=== PATIENT | female | born 1955 | race African-American/Black ===

== ENCOUNTER 2016-10-25 21:16 | Emergency (ER) | payer MEDICARE, MEDICAID ==
[~2016-10-25] VITALS: Ht 170.2 cm; Wt 55.0 kg
[~2016-10-25 21:16] MED LIST: AMLO10TA80 PO; CALC0.253 PO; CINA90TA PO; DOXA2TAB2 PO; OMEP20CA4 PO; QUET200T PO; RAMI10CA19 PO; SERT100T PO; SEVE800T8 PO; TEMA15CA PO; TRAZ-132 PO; VALS320T2 PO
[2016-10-25] MEDS ORDERED: MORPHINE SULFATE 4 MG/ML CPJ (NOT FOR IM USE) IV STA (23:09)
[2016-10-25] MEDS ORDERED: ONDANSETRON HCL 4MG/2ML VIAL IV STA (23:09)
[2016-10-25] MEDS ORDERED: LIDOCAINE HCL 1% 20ML VIAL (Pyxis) INJ MC ONE (23:15)
[2016-10-25] MEDS ORDERED: BACITRACIN ZINC OINT UDPKT TOP ONE (23:15)
[2016-10-25 23:39] LABS: BASOPHILS % 2.4 % (0.0-2.0); EOSINOPHILS % 5.6 % (0.0-5.0); HEMATOCRIT. 24.4 % (36.0-48.0); HEMOGLOBIN. 8.4 g/dL (12.0-16.0); LYMPHOCYTES % 31.4 % (20.0-50.0); MEAN CORPUSCULAR HEMOGLOBIN 33.7 pg (28.0-32.0); MEAN CORPUSCULAR VOLUME 98.1 fL (81.0-99.0); MEAN PLATELET VOLUME 7.5 fl (7.4-10.4); MONOCYTES % 8.9 % (2.0-8.0); NEUTROPHILS % 51.7 % (40.0-76.0); PLATELET 187 x1000/uL (130-400); RED BLOOD CELL COUNT 2.49 mill/uL (4.2-5.4); RED CELL DISTRIBUTION WIDTH 17.4 % (11.6-14.6)
[2016-10-25 23:46] LABS: CHLORIDE 98 mEq/L (98-107); INR 1.2; PROTHROMBIN TIME 12.9 sec
[2016-10-25 23:56] LABS: CARBON DIOXIDE 30 mEq/L (21-32)
[2016-10-26 04:05] VITALS: BP 125/76
[2017-03-26] MEDS ORDERED: SEVE800T8 PO (07:38)
[2017-03-26] MEDS ORDERED: NEPVIT PO (07:38)
== END 2016-10-26 04:06 | disposition home or self-care (01) ==
LOC: ER 21:25
DX: T82.838A Hemorrhage due to vascular prosthetic devices, implants and grafts, initial encounter (principal); Y84.1 Kidney dialysis as the cause of abnormal reaction of the patient, or of later complication, without mention of misadventure at the time of the procedure; D64.9 Anemia, unspecified; I12.9 Hypertensive chronic kidney disease with stage 1 through stage 4 chronic kidney disease, or unspecified chronic kidney disease; N18.9 Chronic kidney disease, unspecified; G62.9 Polyneuropathy, unspecified; Z90.81 Acquired absence of spleen; F17.200 Nicotine dependence, unspecified, uncomplicated; Z99.2 Dependence on renal dialysis
CPT/HCPCS: 36415; 80053; 85025; 85610; 86850; 86870; 86900; 86901; 93005; 96374; 96375; 99285; J2270; J2405; J3490

== ENCOUNTER 2016-11-07 16:30 | Inpatient (IN) | payer MEDICARE, MEDICAID ==
[~2016-11-07] VITALS: Ht 170.2 cm; Wt 54.0 kg
[2016-11-07] MEDS ORDERED: IPRATROPIUM BROMIDE (0.02%) 0.5MG/2.5ML NEB HHN PRN (19:45)
[2016-11-07] MEDS ORDERED: LACTULOSE 20G/30ML UDC PO PRN (19:45)
[2016-11-07] MEDS ORDERED: HYDROXYZINE 10 MG TABLET PO PRN (19:45)
[2016-11-07] MEDS ORDERED: ONDANSETRON HCL 4MG/2ML VIAL IV PRN (19:45)
[2016-11-07] MEDS ORDERED: CLONIDINE 0.1MG TABLET PO PRN (19:45)
[2016-11-07] MEDS ORDERED: ACETAMINOPHEN 325MG TABLET PO PRN (19:45)
[2016-11-07] MEDS ORDERED: DEXTROSE 50% WATER 50ML SYRINGE IV PRN ×2 (19:45)
[2016-11-07] MEDS ORDERED: ALBUTEROL (0.083%) 2.5MG/3ML NEB HHN PRN (19:45)
[2016-11-07 20:00] VITALS: BP 123/71
[2016-11-07] MEDS ORDERED: HYDROMORPHONE HCL/PF 2MG/ML CPJ IV PRN (21:08)
[2016-11-07] MEDS ORDERED: GLUCAGON,HUMAN RECOMBINANT 1MG/VIAL SUBCUT PRN (21:09)
[2016-11-07] MEDS: FAMOTIDINE 20MG TABLET PO SCH (21:27)
[2016-11-07] MEDS: DOXAZOSIN MESYLATE 4MG TABLET PO SCH (21:27)
[2016-11-07] MEDS: AMIODARONE HCL 200 MG TABLET PO SCH (21:27)
[2016-11-07] MEDS: BLOOD SUGAR DIAGNOSTIC STRIP TEST SCH (21:29)
[2016-11-07] MEDS ORDERED: HEPARIN SODIUM 1,000 UNIT/1ML VIAL IV SCH (21:30)
[2016-11-07] MEDS: INSULIN LISPRO 100 UNITS/ML SUBCUT SCH (21:40)
[2016-11-07] MEDS: MUPIROCIN 2% OINT 22GM TOP SCH (23:33)
[2016-11-08] VITALS (8 sets, daily range): BP systolic 129–164; BP diastolic 76–94
[2016-11-08] MEDS: LORAZEPAM 2MG/ML CPJ IV PRN ×3 (03:49→22:45)
[2016-11-08] MEDS: CLONIDINE 0.3MG TABLET PO SCH ×4 (06:00→18:00)
[2016-11-08] MEDS: BLOOD SUGAR DIAGNOSTIC STRIP TEST SCH ×4 (06:43→21:00)
[2016-11-08] MEDS: INSULIN LISPRO 100 UNITS/ML SUBCUT SCH ×4 (06:43→21:00)
[2016-11-08 07:06] LABS: BASOPHILS % 0.9 % (0.0-2.0); EOSINOPHILS % 5.7 % (0.0-5.0); HEMATOCRIT. 21.7 % (36.0-48.0); HEMOGLOBIN. 7.4 g/dL (12.0-16.0); LYMPHOCYTES % 24.7 % (20.0-50.0); MEAN CORPUSCULAR HEMOGLOBIN 32.2 pg (28.0-32.0); MEAN CORPUSCULAR VOLUME 94.4 fL (81.0-99.0); MEAN PLATELET VOLUME 7.4 fl (7.4-10.4); MONOCYTES % 5.6 % (2.0-8.0); NEUTROPHILS % 63.1 % (40.0-76.0); PLATELET 168 x1000/uL (130-400); RED CELL DISTRIBUTION WIDTH 17.3 % (11.6-14.6)
[2016-11-08] MEDS ORDERED: LACTULOSE 20G/30ML UDC PO STA (07:24)
[2016-11-08 07:51] LABS: CHLORIDE 95 mEq/L (98-107)
[2016-11-08 07:58] LABS: CARBON DIOXIDE 26 mEq/L (21-32)
[2016-11-08] MEDS: HYDROCODONE/ACETAMINOPHEN 5/325MG TABLET PO PRN ×3 (08:17→21:16)
[2016-11-08] MEDS ORDERED: DOCUSATE SODIUM 250MG CAPSULE PO SCH (09:00)
[2016-11-08] MEDS ORDERED: LIDOCAINE 5% PATCH TOP SCH (09:00)
[2016-11-08] MEDS: LACTULOSE 20G/30ML UDC PO SCH ×4 (09:00→21:00)
[2016-11-08] MEDS: DOCUSATE SODIUM 100MG CAPSULE PO SCH ×2 (09:24→16:41)
[2016-11-08] MEDS: AMLODIPINE 5MG TABLET PO SCH (09:25)
[2016-11-08] MEDS: CINACALCET HCL 30MG TABLET PO SCH (09:26)
[2016-11-08] MEDS: LOSARTAN POTASSIUM 100 MG TABLET PO SCH (09:26)
[2016-11-08] MEDS: AMIODARONE HCL 200 MG TABLET PO SCH ×2 (09:27→21:14)
[2016-11-08] MEDS: VITAMIN B / W-C 1 TAB PO SCH (09:27)
[2016-11-08] MEDS: GABAPENTIN 100MG CAPSULE PO SCH ×2 (09:27→16:41)
[2016-11-08] MEDS: CALCITRIOL 0.25MCG CAPSULE PO SCH (09:27)
[2016-11-08] MEDS: MUPIROCIN 2% OINT 22GM TOP SCH ×2 (09:28→17:00)
[2016-11-08] MEDS: CALCIUM CARBONATE 500MG TABLET CHEW PO SCH ×3 (09:28→16:49)
[2016-11-08] MEDS: LIDOCAINE 5% PATCH TOP SCH (09:30)
[2016-11-08 10:45] LABS: PREALBUMIN 18.5 mg/dL (20.0-40.0)
[2016-11-08] MEDS: POLYETHYLENE GLYCOL 3350 (17GM) 1 DOSE PACK PO SCH (21:00)
[2016-11-08] MEDS: DOXAZOSIN MESYLATE 4MG TABLET PO SCH (21:14)
[2016-11-08] MEDS: FAMOTIDINE 20MG TABLET PO SCH (21:15)
[2016-11-09] MEDS: HYDROCODONE/ACETAMINOPHEN 5/325MG TABLET PO PRN ×4 (01:26→16:58)
[2016-11-09] MEDS: CLONIDINE 0.3MG TABLET PO SCH ×4 (06:00→16:58)
[2016-11-09] MEDS: BLOOD SUGAR DIAGNOSTIC STRIP TEST SCH ×4 (06:34→21:49)
[2016-11-09] MEDS: INSULIN LISPRO 100 UNITS/ML SUBCUT SCH ×4 (06:45→21:00)
[2016-11-09 07:03] LABS: BASOPHILS % 0.9 % (0.0-2.0); EOSINOPHILS % 5.8 % (0.0-5.0); HEMATOCRIT. 26.6 % (36.0-48.0); HEMOGLOBIN. 9.1 g/dL (12.0-16.0); LYMPHOCYTES % 17.7 % (20.0-50.0); MEAN CORPUSCULAR HEMOGLOBIN 31.8 pg (28.0-32.0); MEAN CORPUSCULAR VOLUME 92.7 fL (81.0-99.0); MEAN PLATELET VOLUME 7.4 fl (7.4-10.4); MONOCYTES % 7.8 % (2.0-8.0); NEUTROPHILS % 67.8 % (40.0-76.0); PLATELET 151 x1000/uL (130-400); RED BLOOD CELL COUNT 2.87 mill/uL (4.2-5.4); RED CELL DISTRIBUTION WIDTH 16.9 % (11.6-14.6)
[2016-11-09 08:00] VITALS: BP 118/66
[2016-11-09] MEDS: LACTULOSE 20G/30ML UDC PO SCH ×4 (08:29→21:00)
[2016-11-09] MEDS: LOSARTAN POTASSIUM 100 MG TABLET PO SCH (08:34)
[2016-11-09] MEDS: CALCITRIOL 0.25MCG CAPSULE PO SCH (08:36)
[2016-11-09] MEDS: AMIODARONE HCL 200 MG TABLET PO SCH ×2 (08:37→21:48)
[2016-11-09] MEDS: GABAPENTIN 100MG CAPSULE PO SCH ×2 (08:37→16:14)
[2016-11-09] MEDS: DOCUSATE SODIUM 100MG CAPSULE PO SCH ×2 (08:37→16:15)
[2016-11-09] MEDS: AMLODIPINE 5MG TABLET PO SCH (08:38)
[2016-11-09] MEDS: CINACALCET HCL 30MG TABLET PO SCH (08:38)
[2016-11-09] MEDS: CALCIUM CARBONATE 500MG TABLET CHEW PO SCH ×3 (08:39→16:49)
[2016-11-09] MEDS: VITAMIN B / W-C 1 TAB PO SCH (08:39)
[2016-11-09] MEDS: LIDOCAINE 5% PATCH TOP SCH (08:40)
[2016-11-09] MEDS: MUPIROCIN 2% OINT 22GM TOP SCH ×2 (08:44→16:17)
[2016-11-09 13:30] LABS: TOTAL IRON BINDING CAPACITY 183 ug/dL (250-450)
[2016-11-09] MEDS: SENNOSIDES/DOCUSATE SOD 8.6/50MG TABLET PO SCH (16:57)
[2016-11-09 20:00] VITALS: BP 90/50
[2016-11-09] MEDS: DOXAZOSIN MESYLATE 4MG TABLET PO SCH (21:00)
[2016-11-09] MEDS: POLYETHYLENE GLYCOL 3350 (17GM) 1 DOSE PACK PO SCH (21:00)
[2016-11-09] MEDS: FAMOTIDINE 20MG TABLET PO SCH (21:48)
[2016-11-10] MEDS: ZOLPIDEM TARTRATE 5MG TABLET PO PRN ×2 (00:06→22:25)
[2016-11-10] MEDS: HYDROCODONE/ACETAMINOPHEN 5/325MG TABLET PO PRN ×4 (02:18→20:34)
[2016-11-10] MEDS: LORAZEPAM 2MG/ML CPJ IV PRN ×2 (03:11→17:59)
[2016-11-10] MEDS: CLONIDINE 0.3MG TABLET PO SCH ×4 (06:00→17:59)
[2016-11-10] MEDS: INSULIN LISPRO 100 UNITS/ML SUBCUT SCH ×4 (06:23→20:38)
[2016-11-10] MEDS: BLOOD SUGAR DIAGNOSTIC STRIP TEST SCH ×4 (06:23→20:38)
[2016-11-10 07:06] LABS: EOSINOPHILS % 6.5 % (0.0-5.0); HEMATOCRIT. 25.8 % (36.0-48.0); HEMOGLOBIN. 8.7 g/dL (12.0-16.0); LYMPHOCYTES % 22.3 % (20.0-50.0); MEAN CORPUSCULAR HEMOGLOBIN 31.8 pg (28.0-32.0); MEAN CORPUSCULAR VOLUME 93.9 fL (81.0-99.0); MEAN PLATELET VOLUME 7.4 fl (7.4-10.4); MONOCYTES % 7.4 % (2.0-8.0); NEUTROPHILS % 62.8 % (40.0-76.0); PLATELET 155 x1000/uL (130-400); RED BLOOD CELL COUNT 2.75 mill/uL (4.2-5.4); RED CELL DISTRIBUTION WIDTH 16.9 % (11.6-14.6)
[2016-11-10 08:00] VITALS: BP 114/67
[2016-11-10 08:37] LABS: FOLIC ACID (FOLATE) SERUM 19.3 ng/mL (>5.38)
[2016-11-10 08:53] LABS: PHOSPHORUS 4.7 mg/dL (2.5-4.9)
[2016-11-10] MEDS: CALCITRIOL 0.25MCG CAPSULE PO SCH (09:16)
[2016-11-10] MEDS: SENNOSIDES/DOCUSATE SOD 8.6/50MG TABLET PO SCH ×2 (09:16→17:59)
[2016-11-10] MEDS: CALCIUM CARBONATE 500MG TABLET CHEW PO SCH ×3 (09:16→17:59)
[2016-11-10] MEDS: VITAMIN B / W-C 1 TAB PO SCH (09:16)
[2016-11-10] MEDS: GABAPENTIN 100MG CAPSULE PO SCH ×2 (09:16→16:29)
[2016-11-10] MEDS: LOSARTAN POTASSIUM 100 MG TABLET PO SCH (09:16)
[2016-11-10] MEDS: AMLODIPINE 5MG TABLET PO SCH (09:17)
[2016-11-10] MEDS: AMIODARONE HCL 200 MG TABLET PO SCH ×2 (09:17→20:33)
[2016-11-10] MEDS: MUPIROCIN 2% OINT 22GM TOP SCH (09:19)
[2016-11-10] MEDS: LACTULOSE 20G/30ML UDC PO SCH ×4 (09:19→20:34)
[2016-11-10] MEDS: LIDOCAINE 5% PATCH TOP SCH (09:20)
[2016-11-10] MEDS: CINACALCET HCL 30MG TABLET PO SCH (09:23)
[2016-11-10 20:00] VITALS: BP 143/87
[2016-11-10] MEDS: DOXAZOSIN MESYLATE 4MG TABLET PO SCH (20:33)
[2016-11-10] MEDS: FAMOTIDINE 20MG TABLET PO SCH (20:33)
[2016-11-10] MEDS: POLYETHYLENE GLYCOL 3350 (17GM) 1 DOSE PACK PO SCH (20:34)
[2016-11-11] MEDS: CLONIDINE 0.3MG TABLET PO SCH ×5 (00:34→23:28)
[2016-11-11] MEDS: HYDROCODONE/ACETAMINOPHEN 5/325MG TABLET PO PRN ×3 (00:35→16:53)
[2016-11-11 06:26] LABS: BASOPHILS % 1.1 % (0.0-2.0); HEMATOCRIT. 25.8 % (36.0-48.0); HEMOGLOBIN. 8.6 g/dL (12.0-16.0); LYMPHOCYTES % 23.4 % (20.0-50.0); MEAN CORPUSCULAR HEMOGLOBIN 31.5 pg (28.0-32.0); MEAN CORPUSCULAR VOLUME 94.9 fL (81.0-99.0); MEAN PLATELET VOLUME 7.3 fl (7.4-10.4); MONOCYTES % 7.3 % (2.0-8.0); NEUTROPHILS % 60.2 % (40.0-76.0); PLATELET 149 x1000/uL (130-400); RED BLOOD CELL COUNT 2.72 mill/uL (4.2-5.4); RED CELL DISTRIBUTION WIDTH 16.5 % (11.6-14.6)
[2016-11-11] MEDS: BLOOD SUGAR DIAGNOSTIC STRIP TEST SCH ×4 (06:30→21:09)
[2016-11-11 07:11] LABS: T4 FREE 0.75 ng/dL (0.76-1.46)
[2016-11-11] MEDS: INSULIN LISPRO 100 UNITS/ML SUBCUT SCH ×4 (07:32→21:00)
[2016-11-11 08:00] VITALS: BP 101/67
[2016-11-11] MEDS: CALCIUM CARBONATE 500MG TABLET CHEW PO SCH ×3 (08:32→16:51)
[2016-11-11] MEDS: GABAPENTIN 100MG CAPSULE PO SCH ×3 (08:32→22:16)
[2016-11-11] MEDS: VITAMIN B / W-C 1 TAB PO SCH (08:32)
[2016-11-11] MEDS: CINACALCET HCL 30MG TABLET PO SCH (08:32)
[2016-11-11] MEDS: SENNOSIDES/DOCUSATE SOD 8.6/50MG TABLET PO SCH ×2 (08:32→16:50)
[2016-11-11] MEDS: AMIODARONE HCL 200 MG TABLET PO SCH ×2 (08:32→20:34)
[2016-11-11] MEDS: CALCITRIOL 0.25MCG CAPSULE PO SCH (08:32)
[2016-11-11] MEDS: LIDOCAINE 5% PATCH TOP SCH (08:36)
[2016-11-11] MEDS: LOSARTAN POTASSIUM 100 MG TABLET PO SCH (08:44)
[2016-11-11] MEDS: AMLODIPINE 5MG TABLET PO SCH (08:44)
[2016-11-11] MEDS: LEVOTHYROXINE SODIUM 25MCG TABLET PO SCH (11:08)
[2016-11-11] MEDS: ACETAMINOPHEN 500MG TABLET PO SCH ×3 (11:08→22:17)
[2016-11-11] MEDS ORDERED: LIDOCAINE HCL/EPINEPHRINE 1%-EPI 1:100,000 30 ML VIAL INFIL PRN (12:45)
[2016-11-11] MEDS: DIPHENHYDRAMINE 50MG/ML VIAL IV PRN (13:11)
[2016-11-11] MEDS ORDERED: LIDOCAINE HCL 1%/EPI 1:200,000 30 ML VIAL MC PRN (13:15)
[2016-11-11] MEDS ORDERED: LIDOCAINE HCL 1% 20ML VIAL (Pyxis) INJ INFIL PRN (16:00)
[2016-11-11 20:00] VITALS: BP 109/65
[2016-11-11] MEDS: DOXAZOSIN MESYLATE 4MG TABLET PO SCH (20:34)
[2016-11-11] MEDS: FAMOTIDINE 20MG TABLET PO SCH (20:34)
[2016-11-11] MEDS: POLYETHYLENE GLYCOL 3350 (17GM) 1 DOSE PACK PO SCH (20:34)
[2016-11-11] MEDS: LORAZEPAM 2MG/ML CPJ IV PRN (21:11)
[2016-11-11] MEDS: ZOLPIDEM TARTRATE 5MG TABLET PO PRN (23:28)
[2016-11-12] MEDS: ACETAMINOPHEN 500MG TABLET PO SCH ×3 (03:41→17:55)
[2016-11-12] MEDS: DIPHENHYDRAMINE 50MG/ML VIAL IV PRN (04:01)
[2016-11-12] MEDS: CLONIDINE 0.3MG TABLET PO SCH ×3 (06:00→18:51)
[2016-11-12] MEDS: LEVOTHYROXINE SODIUM 25MCG TABLET PO SCH (06:11)
[2016-11-12] MEDS: GABAPENTIN 100MG CAPSULE PO SCH ×3 (06:11→17:54)
[2016-11-12] MEDS: BLOOD SUGAR DIAGNOSTIC STRIP TEST SCH ×4 (06:19→20:50)
[2016-11-12 07:09] LABS: BASOPHILS % 0.7 % (0.0-2.0); EOSINOPHILS % 6.1 % (0.0-5.0); HEMATOCRIT. 26.2 % (36.0-48.0); HEMOGLOBIN. 8.9 g/dL (12.0-16.0); LYMPHOCYTES % 19.1 % (20.0-50.0); MEAN CORPUSCULAR VOLUME 94.3 fL (81.0-99.0); MEAN PLATELET VOLUME 7.8 fl (7.4-10.4); MONOCYTES % 7.4 % (2.0-8.0); NEUTROPHILS % 66.7 % (40.0-76.0); PLATELET 141 x1000/uL (130-400); RED BLOOD CELL COUNT 2.78 mill/uL (4.2-5.4); RED CELL DISTRIBUTION WIDTH 16.3 % (11.6-14.6)
[2016-11-12] MEDS: HYDROCODONE/ACETAMINOPHEN 5/325MG TABLET PO PRN ×3 (07:09→20:47)
[2016-11-12] MEDS: INSULIN LISPRO 100 UNITS/ML SUBCUT SCH ×4 (07:16→20:50)
[2016-11-12 08:00] VITALS: BP 102/65
[2016-11-12] MEDS: LOSARTAN POTASSIUM 100 MG TABLET PO SCH (09:00)
[2016-11-12] MEDS: AMLODIPINE 5MG TABLET PO SCH (09:00)
[2016-11-12] MEDS: VITAMIN B / W-C 1 TAB PO SCH (09:16)
[2016-11-12] MEDS: CINACALCET HCL 30MG TABLET PO SCH (09:16)
[2016-11-12] MEDS: CALCITRIOL 0.25MCG CAPSULE PO SCH (09:16)
[2016-11-12] MEDS: LIDOCAINE 5% PATCH TOP SCH (09:16)
[2016-11-12] MEDS: SENNOSIDES/DOCUSATE SOD 8.6/50MG TABLET PO SCH ×2 (09:17→17:54)
[2016-11-12] MEDS: CALCIUM CARBONATE 500MG TABLET CHEW PO SCH ×3 (09:17→17:54)
[2016-11-12] MEDS: AMIODARONE HCL 200 MG TABLET PO SCH ×2 (09:17→20:48)
[2016-11-12] MEDS ORDERED: HYDROXYZINE 10 MG TABLET PO PRN (12:30)
[2016-11-12] MEDS ORDERED: LORAZEPAM 1MG TABLET PO PRN (12:45)
[2016-11-12] MEDS ORDERED: LORAZEPAM 0.5MG TABLET PO PRN (12:45)
[2016-11-12] MEDS ORDERED: DIPHENHYDRAMINE 25MG CAPSULE PO PRN (13:00)
[2016-11-12] MEDS: POLYETHYLENE GLYCOL 3350 (17GM) 1 DOSE PACK PO SCH (13:20)
[2016-11-12 20:00] VITALS: BP 124/74
[2016-11-12] MEDS: FAMOTIDINE 20MG TABLET PO SCH (20:47)
[2016-11-12] MEDS: DOXAZOSIN MESYLATE 4MG TABLET PO SCH (20:48)
[2016-11-12] MEDS: ZOLPIDEM TARTRATE 5MG TABLET PO PRN (20:52)
[2016-11-12] MEDS ORDERED: ACETAMINOPHEN 325MG TABLET PO PRN (21:15)
[2016-11-13] MEDS: ACETAMINOPHEN 500MG TABLET PO SCH ×4 (01:47→16:17)
[2016-11-13] MEDS: CLONIDINE 0.3MG TABLET PO SCH ×4 (06:00→17:12)
[2016-11-13] MEDS: LEVOTHYROXINE SODIUM 25MCG TABLET PO SCH (06:05)
[2016-11-13] MEDS: HYDROCODONE/ACETAMINOPHEN 5/325MG TABLET PO PRN ×2 (06:08→13:04)
[2016-11-13] MEDS: BLOOD SUGAR DIAGNOSTIC STRIP TEST SCH ×3 (06:11→17:09)
[2016-11-13] MEDS: INSULIN LISPRO 100 UNITS/ML SUBCUT SCH ×3 (06:11→17:00)
[2016-11-13 06:51] LABS: BASOPHILS % 0.8 % (0.0-2.0); HEMATOCRIT. 25.6 % (36.0-48.0); HEMOGLOBIN. 8.7 g/dL (12.0-16.0); MEAN CORPUSCULAR VOLUME 94.6 fL (81.0-99.0); MEAN PLATELET VOLUME 7.7 fl (7.4-10.4); MONOCYTES % 8.2 % (2.0-8.0); PLATELET 141 x1000/uL (130-400); RED BLOOD CELL COUNT 2.71 mill/uL (4.2-5.4); RED CELL DISTRIBUTION WIDTH 16.7 % (11.6-14.6)
[2016-11-13 07:20] LABS: PHOSPHORUS 4.8 mg/dL (2.5-4.9)
[2016-11-13 08:00] VITALS: BP 83/55
[2016-11-13] MEDS: AMLODIPINE 5MG TABLET PO SCH (09:00)
[2016-11-13] MEDS: LOSARTAN POTASSIUM 100 MG TABLET PO SCH (09:00)
[2016-11-13] MEDS: CALCIUM CARBONATE 500MG TABLET CHEW PO SCH ×3 (09:17→17:10)
[2016-11-13] MEDS: VITAMIN B / W-C 1 TAB PO SCH (09:17)
[2016-11-13] MEDS: AMIODARONE HCL 200 MG TABLET PO SCH (09:17)
[2016-11-13] MEDS: SENNOSIDES/DOCUSATE SOD 8.6/50MG TABLET PO SCH ×2 (09:17→17:09)
[2016-11-13] MEDS: GABAPENTIN 100MG CAPSULE PO SCH ×2 (09:17→17:09)
[2016-11-13] MEDS: CINACALCET HCL 30MG TABLET PO SCH (09:17)
[2016-11-13] MEDS: CALCITRIOL 0.25MCG CAPSULE PO SCH (09:17)
[2016-11-13] MEDS: LIDOCAINE 5% PATCH TOP SCH (09:18)
[2016-11-13] MEDS: POLYETHYLENE GLYCOL 3350 (17GM) 1 DOSE PACK PO SCH (09:18)
[2016-11-13 13:04] VITALS: BP 135/85
[2016-11-13] MEDS ORDERED: SODIUM CHLORIDE 0.9% 500 ML IV NR (18:45)
[2016-11-13] MEDS ORDERED: DOPAMINE 800MG PREMIX 250 ML IV PRN (19:17)
[2016-11-13] MEDS ORDERED: EPOETIN ALFA 4000UNITS/ML VIAL SUBCUT SCH (21:00)
[2016-11-14] MEDS ORDERED: CINACALCET HCL 30MG TABLET PO SCH (09:00)
[2016-11-15 13:12] LABS: 25-HYDROXY VITAMIN D3 7.9 ng/mL (.)
[2016-11-15] MEDS ORDERED: ACETAMINOPHEN 325MG TABLET PO PRN (22:15)
[2016-11-15] MEDS ORDERED: HYDROMORPHONE HCL/PF 2MG/ML CPJ IV PRN (22:15)
[2016-11-15] MEDS ORDERED: CLONIDINE 0.2MG TABLET PO PRN (22:15)
[2016-11-15] MEDS ORDERED: LORAZEPAM 2MG/ML CPJ IV PRN (22:15)
[2016-11-15] MEDS ORDERED: DEXTROSE 5% WATER 1,000 ML IV SCH (22:15)
[2016-11-15] MEDS ORDERED: ONDANSETRON HCL 4MG/2ML VIAL IV PRN (22:15)
[2016-11-15] MEDS ORDERED: IPRATROPIUM/ALBUTEROL 0.5-3(2.5)MG/3ML NEB HHN PRN (22:15)
[2016-11-15] MEDS ORDERED: DEXTROSE 50% WATER 50ML SYRINGE IV PRN (22:45)
[2016-11-16] MEDS ORDERED: OMEPRAZOLE 20MG CAPSULE EXTENDED RELEASE PO SCH (07:00)
[2016-11-16] MEDS ORDERED: AMLODIPINE 5MG TABLET PO SCH (09:00)
[2016-11-16] MEDS ORDERED: BLOOD SUGAR DIAGNOSTIC STRIP TEST SCH (09:00)
[2016-11-16] MEDS ORDERED: INSULIN LISPRO 100 UNITS/ML SUBCUT SCH (09:00)
[2016-11-16] MEDS ORDERED: LOSARTAN POTASSIUM 50 MG TABLET PO SCH (09:00)
[2016-11-19] MEDS ORDERED: EPOETIN ALFA 10000UNITS/ML VIAL SUBCUT SCH (21:00)
[2016-11-20] MEDS ORDERED: ZINC SULFATE 220 MG ( 50 ) CAPSULE PO SCH (09:15)
== END 2016-11-13 19:15 | DRG 56 ==
LOC: UNDOADMIN 16:30 → UNDOLOA 11-13 19:15 → TMPLOALOC 11-13 19:15 → UNDODISIN 11-13 19:15 → TMPLOALOC 11-15 20:40 → UNDOLOA 11-15 20:40
PROVIDERS: ADMIT Physical Medicine & Rehabilitation Spinal Cord Injury Medicine; ATTEND Internal Medicine Nephrology
PROC: 30233N1 Transfusion of Nonautologous Red Blood Cells into Peripheral Vein, Percutaneous Approach (ICD-10-PCS; principal; 2016-11-08)
PROC: 5A1D60Z (ICD-10-PCS; 2016-11-11)
PROC: 0W9G3ZZ Drainage of Peritoneal Cavity, Percutaneous Approach (ICD-10-PCS; 2016-11-12)
DX: G95.0 Syringomyelia and syringobulbia (principal); N18.6 End stage renal disease; E43 Unspecified severe protein-calorie malnutrition; I13.2 Hypertensive heart and chronic kidney disease with heart failure and with stage 5 chronic kidney disease, or end stage renal disease; R18.8 Other ascites; M48.02 Spinal stenosis, cervical region; G82.50 Quadriplegia, unspecified; Z68.1 Body mass index [BMI] 19.9 or less, adult; R29.6 Repeated falls; K64.8 Other hemorrhoids; K59.00 Constipation, unspecified; I50.9 Heart failure, unspecified; E78.5 Hyperlipidemia, unspecified; D63.1 Anemia in chronic kidney disease; E03.9 Hypothyroidism, unspecified; R26.9 Unspecified abnormalities of gait and mobility; M50.31 Other cervical disc degeneration, high cervical region; R53.81 Other malaise; G89.4 Chronic pain syndrome; M50.30 Other cervical disc degeneration, unspecified cervical region; D64.9 Anemia, unspecified; Z99.2 Dependence on renal dialysis; Z91.19 Patient's noncompliance with other medical treatment and regimen; Z87.891 Personal history of nicotine dependence; Z91.81 History of falling
CPT/HCPCS: 36415; 73110; 73221; 80048; 80053; 80061; 82270; 82306; 82607; 82728; 82746; 82962; 83036; 83540; 83550; 83735; 83970; 84100; 84134; 84439; 84443; 84481; 84550; 84630; 85025; 86850; 86870; 86900; 86920; 92523; 93970; 97110; 97116; 97162; 97166; 97530; 97535; C1893; J1170; J1200; J1815; J2060; J2405; J3490; J7030; P9016

== ENCOUNTER 2016-11-15 20:40 | Inpatient (IN) | payer MEDICARE, MEDICAID ==
[~2016-11-15] VITALS: Ht 170.2 cm; Wt 69.8 kg
[2016-11-15] MEDS ORDERED: IPRATROPIUM/ALBUTEROL 0.5-3(2.5)MG/3ML NEB HHN PRN (23:00)
[2016-11-15] MEDS ORDERED: CLONIDINE 0.1MG TABLET PO PRN (23:00)
[2016-11-15] MEDS ORDERED: DEXTROSE 50% WATER 50ML SYRINGE IV PRN (23:00)
[2016-11-15] MEDS ORDERED: ONDANSETRON HCL 4MG/2ML VIAL IV PRN (23:00)
[2016-11-15] MEDS ORDERED: ACETAMINOPHEN 325MG TABLET PO PRN ×2 (23:00)
[2016-11-15] MEDS ORDERED: LORAZEPAM 2MG/ML CPJ IV PRN (23:00)
[2016-11-16] MEDS: HYDROMORPHONE HCL/PF 2MG/ML CPJ IV PRN ×5 (00:08→18:17)
[2016-11-16] MEDS: DEXTROSE 5% WATER 1,000 ML IV SCH ×2 (01:18→21:46)
[2016-11-16] MEDS: BLOOD SUGAR DIAGNOSTIC STRIP TEST SCH ×4 (06:32→21:47)
[2016-11-16] MEDS: OMEPRAZOLE 20MG CAPSULE EXTENDED RELEASE PO SCH (06:33)
[2016-11-16] MEDS: INSULIN LISPRO 100 UNITS/ML SUBCUT SCH ×4 (06:34→21:00)
[2016-11-16 06:40] LABS: BASOPHILS % 0.7 % (0.0-2.0); EOSINOPHILS % 7.8 % (0.0-5.0); HEMATOCRIT. 22.7 % (36.0-48.0); HEMOGLOBIN. 7.8 g/dL (12.0-16.0); LYMPHOCYTES % 17.5 % (20.0-50.0); MEAN CORPUSCULAR HEMOGLOBIN 32.1 pg (28.0-32.0); MEAN CORPUSCULAR VOLUME 93.8 fL (81.0-99.0); MEAN PLATELET VOLUME 7.3 fl (7.4-10.4); MONOCYTES % 7.3 % (2.0-8.0); NEUTROPHILS % 66.7 % (40.0-76.0); PLATELET 152 x1000/uL (130-400); RED BLOOD CELL COUNT 2.42 mill/uL (4.2-5.4); RED CELL DISTRIBUTION WIDTH 16.3 % (11.6-14.6)
[2016-11-16 07:09] LABS: CARBON DIOXIDE 27 mEq/L (21-32); CHLORIDE 90 mEq/L (98-107)
[2016-11-16 07:11] LABS: PREALBUMIN 21.4 mg/dL (20.0-40.0)
[2016-11-16] MEDS: LOSARTAN POTASSIUM 50 MG TABLET PO SCH ×2 (09:00→22:17)
[2016-11-16] MEDS: AMLODIPINE 5MG TABLET PO SCH ×2 (09:00→22:17)
[2016-11-16] MEDS ORDERED: ENOXAPARIN 30MG/0.3ML SYR SUBCUT SCH (09:00)
[2016-11-16 20:18] LABS: INR 1.3; PARTIAL THROMBOPLASTIN TIME 37.5 sec (24.0-34.0); PROTHROMBIN TIME 13.2 sec
[2016-11-16] MEDS ORDERED: EPOETIN ALFA 10000UNITS/ML VIAL SUBCUT SCH (21:00)
[2016-11-16] MEDS ORDERED: EPOETIN ALFA 20000 UNIT/ML SUBCUT SCH (21:00)
[2016-11-17] MEDS: HYDROMORPHONE HCL/PF 2MG/ML CPJ IV PRN ×3 (00:02→09:40)
[2016-11-17] MEDS: BLOOD SUGAR DIAGNOSTIC STRIP TEST SCH ×4 (06:15→21:03)
[2016-11-17] MEDS: OMEPRAZOLE 20MG CAPSULE EXTENDED RELEASE PO SCH (06:16)
[2016-11-17] MEDS: INSULIN LISPRO 100 UNITS/ML SUBCUT SCH ×4 (06:16→21:00)
[2016-11-17 07:37] LABS: HEMATOCRIT. 23.7 % (36.0-48.0); LYMPHOCYTES % 16.3 % (20.0-50.0); MEAN CORPUSCULAR HEMOGLOBIN 31.9 pg (28.0-32.0); MEAN CORPUSCULAR VOLUME 94.6 fL (81.0-99.0); MEAN PLATELET VOLUME 7.2 fl (7.4-10.4); MONOCYTES % 5.9 % (2.0-8.0); NEUTROPHILS % 67.8 % (40.0-76.0); PLATELET 178 x1000/uL (130-400); RED BLOOD CELL COUNT 2.51 mill/uL (4.2-5.4); RED CELL DISTRIBUTION WIDTH 16.5 % (11.6-14.6)
[2016-11-17] MEDS: LOSARTAN POTASSIUM 50 MG TABLET PO SCH ×3 (09:07→23:24)
[2016-11-17] MEDS: AMLODIPINE 5MG TABLET PO SCH ×2 (09:07→21:03)
[2016-11-17] MEDS ORDERED: SODIUM BICARBONATE 4.2% 5 MEQ/10 ML DISP.SYRIN IV ONE (09:20)
[2016-11-17] MEDS ORDERED: LIDOCAINE HCL 1% 20ML VIAL (Pyxis) INJ ONE (09:20)
[2016-11-17] MEDS: LIDOCAINE 5% PATCH TOP SCH (12:19)
[2016-11-17] MEDS: OXYCODONE HCL 5MG TABLET PO SCH ×2 (12:19→17:48)
[2016-11-17] MEDS: HYDROCODONE/ACETAMINOPHEN 5/325MG TABLET PO PRN ×2 (15:06→21:13)
[2016-11-18] MEDS: BLOOD SUGAR DIAGNOSTIC STRIP TEST SCH ×4 (06:26→20:55)
[2016-11-18] MEDS: HYDROCODONE/ACETAMINOPHEN 5/325MG TABLET PO PRN ×3 (06:27→20:50)
[2016-11-18] MEDS: INSULIN LISPRO 100 UNITS/ML SUBCUT SCH ×4 (06:28→20:55)
[2016-11-18] MEDS: FAMOTIDINE 20MG TABLET PO SCH (09:04)
[2016-11-18] MEDS: LOSARTAN POTASSIUM 50 MG TABLET PO SCH ×2 (09:05→20:49)
[2016-11-18] MEDS: AMLODIPINE 5MG TABLET PO SCH ×2 (09:05→20:49)
[2016-11-18] MEDS: OXYCODONE HCL 5MG TABLET PO SCH ×3 (09:05→16:36)
[2016-11-18] MEDS: LIDOCAINE 5% PATCH TOP SCH (09:06)
[2016-11-18 16:35] LABS: BASOPHILS % 0.2 % (0.0-2.0); EOSINOPHILS % 7.3 % (0.0-5.0); HEMOGLOBIN. 8.5 g/dL (12.0-16.0); LYMPHOCYTES % 13.6 % (20.0-50.0); MEAN CORPUSCULAR VOLUME 94.3 fL (81.0-99.0); MONOCYTES % 4.4 % (2.0-8.0); NEUTROPHILS % 74.5 % (40.0-76.0); PLATELET 183 x1000/uL (130-400); RED BLOOD CELL COUNT 2.65 mill/uL (4.2-5.4); RED CELL DISTRIBUTION WIDTH 16.7 % (11.6-14.6)
[2016-11-18 16:57] LABS: AMMONIA 38 uMol/L (<32)
[2016-11-18 17:16] LABS: HEPATITIS B SURFACE ANTIGEN NEGATIVE
[2016-11-18 17:46] LABS: HEPATITIS A AB IGM NEGATIVE (NEGATIVE)
[2016-11-18 18:05] LABS: HEPATITIS B CORE AB IGM REACTIVE
[2016-11-19] MEDS: HYDROCODONE/ACETAMINOPHEN 5/325MG TABLET PO PRN ×2 (02:20→06:37)
[2016-11-19] MEDS: BLOOD SUGAR DIAGNOSTIC STRIP TEST SCH ×4 (06:40→21:38)
[2016-11-19 06:58] LABS: BASOPHILS % 0.7 % (0.0-2.0); EOSINOPHILS % 6.4 % (0.0-5.0); HEMATOCRIT. 25.5 % (36.0-48.0); HEMOGLOBIN. 8.7 g/dL (12.0-16.0); LYMPHOCYTES % 12.6 % (20.0-50.0); MEAN CORPUSCULAR HEMOGLOBIN 32.5 pg (28.0-32.0); MEAN CORPUSCULAR VOLUME 95.5 fL (81.0-99.0); MEAN PLATELET VOLUME 7.5 fl (7.4-10.4); MONOCYTES % 4.2 % (2.0-8.0); NEUTROPHILS % 76.1 % (40.0-76.0); PLATELET 175 x1000/uL (130-400); RED BLOOD CELL COUNT 2.67 mill/uL (4.2-5.4); RED CELL DISTRIBUTION WIDTH 16.8 % (11.6-14.6)
[2016-11-19] MEDS ORDERED: LEVOTHYROXINE SODIUM 88MCG TABLET PO SCH (07:00)
[2016-11-19] MEDS: INSULIN LISPRO 100 UNITS/ML SUBCUT SCH ×4 (07:02→21:00)
[2016-11-19] MEDS ORDERED: LEVOTHYROXINE SODIUM 50MCG TABLET PO SCH (08:15)
[2016-11-19] MEDS: LIDOCAINE 5% PATCH TOP SCH ×2 (09:00→10:54)
[2016-11-19] MEDS: LEVOTHYROXINE SODIUM 88MCG TABLET PO SCH (10:51)
[2016-11-19] MEDS: OXYCODONE HCL 5MG TABLET PO SCH ×3 (10:52→17:43)
[2016-11-19] MEDS: FAMOTIDINE 20MG TABLET PO SCH (10:52)
[2016-11-19] MEDS: AMLODIPINE 5MG TABLET PO SCH ×2 (10:53→21:47)
[2016-11-19] MEDS: LOSARTAN POTASSIUM 50 MG TABLET PO SCH ×2 (10:53→21:47)
[2016-11-19] MEDS ORDERED: ONDANSETRON HCL 4MG TABLET PO PRN (13:00)
[2016-11-19] MEDS: SENNOSIDES/DOCUSATE SOD 8.6/50MG TABLET PO SCH ×2 (13:27→17:42)
[2016-11-19] MEDS: POLYETHYLENE GLYCOL 3350 (17GM) 1 DOSE PACK PO SCH (13:28)
[2016-11-19] MEDS: EPOETIN ALFA 10000UNITS/ML VIAL SUBCUT SCH (21:48)
[2016-11-20] MEDS: HYDROCODONE/ACETAMINOPHEN 5/325MG TABLET PO PRN ×2 (00:03→21:26)
[2016-11-20] MEDS: LORAZEPAM 0.5MG TABLET PO PRN ×2 (01:13→23:45)
[2016-11-20] MEDS: LEVOTHYROXINE SODIUM 88MCG TABLET PO SCH (06:06)
[2016-11-20] MEDS: BLOOD SUGAR DIAGNOSTIC STRIP TEST SCH ×4 (06:06→21:11)
[2016-11-20] MEDS: INSULIN LISPRO 100 UNITS/ML SUBCUT SCH ×4 (06:06→21:00)
[2016-11-20] MEDS: OXYCODONE HCL 5MG TABLET PO SCH ×3 (08:14→16:54)
[2016-11-20] MEDS: FAMOTIDINE 20MG TABLET PO SCH (08:14)
[2016-11-20] MEDS: LOSARTAN POTASSIUM 50 MG TABLET PO SCH ×2 (08:14→21:08)
[2016-11-20] MEDS: SENNOSIDES/DOCUSATE SOD 8.6/50MG TABLET PO SCH ×2 (08:15→16:54)
[2016-11-20] MEDS: LIDOCAINE 5% PATCH TOP SCH (08:15)
[2016-11-20] MEDS: POLYETHYLENE GLYCOL 3350 (17GM) 1 DOSE PACK PO SCH (08:15)
[2016-11-20] MEDS: AMLODIPINE 5MG TABLET PO SCH ×2 (08:15→21:08)
[2016-11-20] MEDS ORDERED: LACTULOSE 20G/30ML UDC PO PRN (09:15)
[2016-11-20] MEDS ORDERED: SORBITOL 70% SOLN 30ML PO SCH (09:15)
[2016-11-20] MEDS: ZINC SULFATE 220 MG ( 50 ) CAPSULE PO SCH (12:01)
[2016-11-21] MEDS: HYDROCODONE/ACETAMINOPHEN 5/325MG TABLET PO PRN ×2 (03:27→22:28)
[2016-11-21] MEDS: BLOOD SUGAR DIAGNOSTIC STRIP TEST SCH ×3 (06:24→20:51)
[2016-11-21] MEDS: LEVOTHYROXINE SODIUM 88MCG TABLET PO SCH (06:24)
[2016-11-21] MEDS: INSULIN LISPRO 100 UNITS/ML SUBCUT SCH ×4 (07:03→20:51)
[2016-11-21] MEDS: AMLODIPINE 5MG TABLET PO SCH ×2 (08:17→21:00)
[2016-11-21] MEDS: ZINC SULFATE 220 MG ( 50 ) CAPSULE PO SCH (08:17)
[2016-11-21] MEDS: OXYCODONE HCL 5MG TABLET PO SCH ×3 (08:18→17:04)
[2016-11-21] MEDS: FAMOTIDINE 20MG TABLET PO SCH (08:18)
[2016-11-21] MEDS: SENNOSIDES/DOCUSATE SOD 8.6/50MG TABLET PO SCH ×2 (08:18→17:04)
[2016-11-21] MEDS: LOSARTAN POTASSIUM 50 MG TABLET PO SCH ×2 (08:18→20:59)
[2016-11-21] MEDS: POLYETHYLENE GLYCOL 3350 (17GM) 1 DOSE PACK PO SCH (08:19)
[2016-11-21] MEDS: LIDOCAINE 5% PATCH TOP SCH (08:19)
[2016-11-21 10:11] LABS: EOSINOPHILS % 8.5 % (0.0-5.0); HEMOGLOBIN. 8.2 g/dL (12.0-16.0); LYMPHOCYTES % 18.1 % (20.0-50.0); MEAN CORPUSCULAR HEMOGLOBIN 32.2 pg (28.0-32.0); MEAN CORPUSCULAR VOLUME 94.3 fL (81.0-99.0); MEAN PLATELET VOLUME 7.2 fl (7.4-10.4); MONOCYTES % 8.7 % (2.0-8.0); NEUTROPHILS % 63.7 % (40.0-76.0); PLATELET 199 x1000/uL (130-400); RED BLOOD CELL COUNT 2.55 mill/uL (4.2-5.4); RED CELL DISTRIBUTION WIDTH 17.1 % (11.6-14.6)
[2016-11-21] MEDS ORDERED: DEXTROSE 50% WATER 50ML SYRINGE IV PRN (12:30)
[2016-11-21] MEDS: EPOETIN ALFA 10000UNITS/ML VIAL SUBCUT SCH (21:00)
[2016-11-21] MEDS ORDERED: EPOETIN ALFA 10000UNITS/ML VIAL SUBCUT SCH (21:00)
[2016-11-22] MEDS: LORAZEPAM 0.5MG TABLET PO PRN (00:27)
[2016-11-22] MEDS: LEVOTHYROXINE SODIUM 88MCG TABLET PO SCH (06:08)
[2016-11-22] MEDS: HYDROCODONE/ACETAMINOPHEN 5/325MG TABLET PO PRN (06:09)
[2016-11-22] MEDS: BLOOD SUGAR DIAGNOSTIC STRIP TEST SCH ×2 (06:09→11:40)
[2016-11-22] MEDS: INSULIN LISPRO 100 UNITS/ML SUBCUT SCH ×2 (07:01→12:16)
[2016-11-22] MEDS: LIDOCAINE 5% PATCH TOP SCH (09:00)
[2016-11-22] MEDS: SENNOSIDES/DOCUSATE SOD 8.6/50MG TABLET PO SCH (09:49)
[2016-11-22] MEDS: FAMOTIDINE 20MG TABLET PO SCH (09:49)
[2016-11-22] MEDS: LOSARTAN POTASSIUM 50 MG TABLET PO SCH (09:49)
[2016-11-22] MEDS: ZINC SULFATE 220 MG ( 50 ) CAPSULE PO SCH (09:49)
[2016-11-22] MEDS: POLYETHYLENE GLYCOL 3350 (17GM) 1 DOSE PACK PO SCH (09:50)
[2016-11-22] MEDS: AMLODIPINE 5MG TABLET PO SCH (09:50)
[2016-11-22] MEDS: OXYCODONE HCL 5MG TABLET PO SCH ×2 (10:00→13:40)
[2016-11-22 13:40] VITALS: BP 141/75
[2016-11-26] MEDS ORDERED: LEVOTHYROXINE SODIUM 100MCG TABLET PO SCH (07:00)
[2017-03-26] MEDS ORDERED: NEPVIT PO (07:38)
[2017-03-26] MEDS ORDERED: SEVE800T8 PO (07:38)
== END 2016-11-22 14:00 | disposition home or self-care (01) | DRG 56 ==
PROVIDERS: ADMIT Physical Medicine & Rehabilitation Spinal Cord Injury Medicine; ATTEND Hospitalist
PROC: 0W9G3ZZ Drainage of Peritoneal Cavity, Percutaneous Approach (ICD-10-PCS; principal; 2016-11-17)
DX: G95.0 Syringomyelia and syringobulbia (principal); N18.6 End stage renal disease; R18.8 Other ascites; E11.22 Type 2 diabetes mellitus with diabetic chronic kidney disease; E46 Unspecified protein-calorie malnutrition; I12.0 Hypertensive chronic kidney disease with stage 5 chronic kidney disease or end stage renal disease; I95.9 Hypotension, unspecified; G82.50 Quadriplegia, unspecified; G95.89 Other specified diseases of spinal cord; R29.6 Repeated falls; K64.8 Other hemorrhoids; E87.5 Hyperkalemia; E55.9 Vitamin D deficiency, unspecified; E11.649 Type 2 diabetes mellitus with hypoglycemia without coma; D63.1 Anemia in chronic kidney disease; M50.31 Other cervical disc degeneration, high cervical region; R26.9 Unspecified abnormalities of gait and mobility; R00.1 Bradycardia, unspecified; Z79.899 Other long term (current) drug therapy; Z82.49 Family history of ischemic heart disease and other diseases of the circulatory system; Z99.2 Dependence on renal dialysis; Z98.1 Arthrodesis status; Z68.24 Body mass index [BMI] 24.0-24.9, adult
CPT/HCPCS: 36415; 49083; 73110; 73221; 76700; 80048; 80053; 80061; 82140; 82150; 82270; 82306; 82607; 82728; 82746; 82945; 82962; 83036; 83540; 83550; 83615; 83735; 83970; 84100; 84134; 84157; 84439; 84443; 84481; 84550; 84630; 85025; 85044; 85610; 85730; 86376; 86705; 86709; 86800; 86803; 86850; 86870; 86900; 86920; 87116; 87340; 88108; 88312; 92523; 92610; 93005; 93970; 97110; 97116; 97162; 97166; 97530; 97535; A6261; C1893; J0885; J1170; J1200; J1650; J1815; J2060; J2405; J3490; J7030; J7042; J7070; P9016

== ENCOUNTER → 2016-12-20 | Day surgery (SDC) | payer MEDICARE, MEDICAID ==
[~2016-12-20] MED LIST changes: -AMLO10TA80 PO; -CALC0.253 PO; -CINA90TA PO; -DOXA2TAB2 PO; +LIDOCAINE HCL 1% 20ML VIAL (Pyxis) INJ ONE; -OMEP20CA4 PO; -QUET200T PO; -RAMI10CA19 PO; -SERT100T PO; -SEVE800T8 PO; +SODIUM BICARBONATE 4.2% 5 MEQ/10 ML DISP.SYRIN IV ONE; -TEMA15CA PO; -TRAZ-132 PO; -VALS320T2 PO
== END | disposition home or self-care (01) ==
LOC: RAD 12:08
PROVIDERS: ATTEND Internal Medicine Nephrology
DX: R18.8 Other ascites (principal)
CPT/HCPCS: 49083; 82150; 82945; 83615; 84157; 87070; 87205; 88108; 88312; 89050; J3490

== ENCOUNTER 2017-01-17 12:50 | Emergency (ER) | payer MEDICARE, MEDICAID ==
[~2017-01-17] VITALS: Ht 170.2 cm; Wt 61.0 kg
[2017-01-17 14:22] LABS: HEMATOCRIT. 26.1 % (36.0-48.0); HEMOGLOBIN. 8.8 g/dL (12.0-16.0); MEAN CORPUSCULAR HEMOGLOBIN 34.8 pg (28.0-32.0); MEAN CORPUSCULAR VOLUME 103.2 fL (81.0-99.0); MEAN PLATELET VOLUME 7.3 fl (7.4-10.4); PLATELET 157 x1000/uL (130-400); RED BLOOD CELL COUNT 2.53 mill/uL (4.2-5.4); RED CELL DISTRIBUTION WIDTH 18.7 % (11.6-14.6)
[2017-01-17 14:25] LABS: CHLORIDE 102 mEq/L (98-107)
[2017-01-17 14:29] LABS: INR 1.5; PARTIAL THROMBOPLASTIN TIME 32.9 sec (23.4-31.0); PROTHROMBIN TIME 15.2 sec (9.4-11.6)
[2017-01-17 14:37] LABS: CARBON DIOXIDE 25 mEq/L (21-32); PHOSPHORUS 6.2 mg/dL (2.5-4.9); TROPONIN I 0.03 ng/mL (0.00-0.04)
[2017-01-17 14:45] LABS: PLATELET ESTIMATE NORMAL
[2017-01-17] MEDS ORDERED: ONDANSETRON HCL 4MG/2ML VIAL IV STA (15:06)
[2017-01-17] MEDS ORDERED: MORPHINE SULFATE 4 MG/ML CPJ (NOT FOR IM USE) IV STA (15:06)
[2017-01-17] MEDS ORDERED: HYDRALAZINE 20MG/ML VIAL IV ONE (16:15)
[2017-01-17 17:21] VITALS: BP 116/62
== END 2017-01-17 19:00 | disposition home or self-care (01) ==
LOC: ER 14:05
DX: M47.22 Other spondylosis with radiculopathy, cervical region (principal); I16.0 Hypertensive urgency; I12.0 Hypertensive chronic kidney disease with stage 5 chronic kidney disease or end stage renal disease; N18.6 End stage renal disease; Z99.2 Dependence on renal dialysis; Z91.19 Patient's noncompliance with other medical treatment and regimen; F17.200 Nicotine dependence, unspecified, uncomplicated
CPT/HCPCS: 36415; 71010; 80053; 83690; 83735; 84100; 84484; 85025; 85610; 85730; 93005; 96374; 96375; 99285; J0360; J2270; J2405

== ENCOUNTER → 2017-01-17 | Outpatient (CLI) | payer MEDICARE, MEDICAID | END | disposition home or self-care (01) | LOC: MRI 11:00 | PROVIDERS: ATTEND Internal Medicine Nephrology | DX: M47.892 Other spondylosis, cervical region (principal); M16.0 Bilateral primary osteoarthritis of hip; M85.80 Other specified disorders of bone density and structure, unspecified site; M25.512 Pain in left shoulder; R06.03 Acute respiratory distress; Z98.890 Other specified postprocedural states | CPT/HCPCS: 72141; 73030; 73502 ==

== ENCOUNTER → 2017-03-07 | Outpatient (CLI) | payer MEDICARE, MEDICAID ==
[~2017-03-07] MED LIST changes: -LIDOCAINE HCL 1% 20ML VIAL (Pyxis) INJ ONE; +NEPVIT PO; +SEVE800T8 PO; -SODIUM BICARBONATE 4.2% 5 MEQ/10 ML DISP.SYRIN IV ONE
[2017-03-07 16:11] LABS: BASOPHILS % 1.4 % (0.0-2.0); EOSINOPHILS % 3.4 % (0.0-5.0); HEMATOCRIT. 25.1 % (36.0-48.0); HEMOGLOBIN. 8.3 g/dL (12.0-16.0); LYMPHOCYTES % 18.1 % (20.0-50.0); MEAN CORPUSCULAR HEMOGLOBIN 33.3 pg (28.0-32.0); MEAN CORPUSCULAR VOLUME 101.1 fL (81.0-99.0); MEAN PLATELET VOLUME 7.1 fl (7.4-10.4); MONOCYTES % 8.4 % (2.0-8.0); NEUTROPHILS % 68.7 % (40.0-76.0); PLATELET 207 x1000/uL (130-400); RED BLOOD CELL COUNT 2.48 mill/uL (4.2-5.4); RED CELL DISTRIBUTION WIDTH 16.3 % (11.6-14.6)
[2017-03-07 16:17] LABS: INR 1.4; PARTIAL THROMBOPLASTIN TIME 34.1 sec (23.4-31.0)
== END | disposition home or self-care (01) ==
LOC: LAB 15:22
PROVIDERS: ATTEND Internal Medicine Nephrology
DX: Z51.81 Encounter for therapeutic drug level monitoring (principal); R18.8 Other ascites
CPT/HCPCS: 36415; 80048; 85025; 85610; 85730

== ENCOUNTER → 2017-06-13 | Outpatient (CLI) | payer MEDICARE, MEDICAID | END | disposition home or self-care (01) | LOC: CARD 09:11 | PROVIDERS: ATTEND Hospitalist | DX: G62.9 Polyneuropathy, unspecified (principal) ==

== ENCOUNTER → 2017-07-12 | Outpatient (CLI) | payer MEDICARE, MEDICAID ==
[~2017-07-12] MED LIST changes: +ACET-2178 PO; +AMIO100T4 PO; +ASPI-986 PO; +CALC667C PO; +CINA30 PO; +CLON0.3T PO; +CYAN10009 PO; +DIPH25CA83 PO; +DOCU-150 PO; +GUAI-735 PO; +HYDROXYZINE PO; +IPRA3AMP9 HHN; +NITR0.4T49 SL; +ONDA4TAB5 PO; +PANT40TA4 PO; +TRAM50TA3 PO
[2017-07-12 16:41] LABS: BASOPHILS % 1.5 % (0.0-2.0); HEMATOCRIT. 25.1 % (36.0-48.0); HEMOGLOBIN. 8.3 g/dL (12.0-16.0); LYMPHOCYTES % 19.7 % (20.0-50.0); MEAN CORPUSCULAR HEMOGLOBIN 33.6 pg (28.0-32.0); MEAN CORPUSCULAR VOLUME 101.1 fL (81.0-99.0); MONOCYTES % 7.5 % (2.0-8.0); NEUTROPHILS % 67.3 % (40.0-76.0); PLATELET 197 x1000/uL (130-400); RED BLOOD CELL COUNT 2.48 mill/uL (4.2-5.4); RED CELL DISTRIBUTION WIDTH 17.2 % (11.6-14.6)
[2017-07-12 16:45] LABS: INR 1.4; PARTIAL THROMBOPLASTIN TIME 32.1 sec (23.4-31.0); PROTHROMBIN TIME 14.4 sec (9.4-11.6)
== END | disposition home or self-care (01) ==
LOC: LAB 15:58
PROVIDERS: ATTEND Internal Medicine Nephrology
DX: R18.8 Other ascites (principal); R79.89 Other specified abnormal findings of blood chemistry; Z79.01 Long term (current) use of anticoagulants
CPT/HCPCS: 36415; 85025; 85610; 85730

== ENCOUNTER → 2017-07-23 | Day surgery (SDC) | payer MEDICARE, MEDICAID ==
[~2017-07-23] MED LIST changes: +LIDOCAINE HCL/PF 1% 10 MG/ML 5ML VIAL ONE; +SODIUM BICARBONATE 4% (2.4MEQ) 5ML VIAL IV ONE
== END | disposition home or self-care (01) ==
LOC: RAD 12:45
PROVIDERS: ATTEND Internal Medicine Nephrology
DX: R18.8 Other ascites (principal); Z79.01 Long term (current) use of anticoagulants; Z90.81 Acquired absence of spleen; D63.1 Anemia in chronic kidney disease; I25.10 Atherosclerotic heart disease of native coronary artery without angina pectoris; Z99.2 Dependence on renal dialysis; I13.2 Hypertensive heart and chronic kidney disease with heart failure and with stage 5 chronic kidney disease, or end stage renal disease; E11.22 Type 2 diabetes mellitus with diabetic chronic kidney disease; N18.6 End stage renal disease; I50.42 Chronic combined systolic (congestive) and diastolic (congestive) heart failure; K21.9 Gastro-esophageal reflux disease without esophagitis; E03.8 Other specified hypothyroidism; Z79.82 Long term (current) use of aspirin; Z79.84 Long term (current) use of oral hypoglycemic drugs
CPT/HCPCS: 49083; 82150; 87070; 87116; 87205; 88108; 88312; 89050; J3490

== ENCOUNTER → 2017-08-15 | Outpatient (CLI) | payer MEDICARE, MEDICAID ==
[~2017-08-15] MED LIST changes: -LIDOCAINE HCL/PF 1% 10 MG/ML 5ML VIAL ONE; -SODIUM BICARBONATE 4% (2.4MEQ) 5ML VIAL IV ONE
== END | disposition home or self-care (01) ==
LOC: LAB 10:30
PROVIDERS: ATTEND Surgery
DX: N63.0 Unspecified lump in unspecified breast (principal); I13.2 Hypertensive heart and chronic kidney disease with heart failure and with stage 5 chronic kidney disease, or end stage renal disease; E11.22 Type 2 diabetes mellitus with diabetic chronic kidney disease; N18.6 End stage renal disease; I50.9 Heart failure, unspecified; F17.210 Nicotine dependence, cigarettes, uncomplicated; K21.9 Gastro-esophageal reflux disease without esophagitis; E03.9 Hypothyroidism, unspecified; Z79.899 Other long term (current) drug therapy; Z79.84 Long term (current) use of oral hypoglycemic drugs; Z79.01 Long term (current) use of anticoagulants
CPT/HCPCS: 88305

== ENCOUNTER → 2017-09-24 | Outpatient (CLI) | payer MEDICARE, MEDICAID ==
[2017-09-24 14:13] LABS: BASOPHILS % 1.2 % (0.0-2.0); EOSINOPHILS % 6.2 % (0.0-5.0); HEMATOCRIT. 24.7 % (36.0-48.0); HEMOGLOBIN. 8.2 g/dL (12.0-16.0); LYMPHOCYTES % 15.6 % (20.0-50.0); MEAN CORPUSCULAR HEMOGLOBIN 33.3 pg (28.0-32.0); MEAN CORPUSCULAR VOLUME 100.3 fL (81.0-99.0); MEAN PLATELET VOLUME 7.2 fl (7.4-10.4); MONOCYTES % 6.8 % (2.0-8.0); NEUTROPHILS % 70.2 % (40.0-76.0); PLATELET 174 x1000/uL (130-400); RED BLOOD CELL COUNT 2.47 mill/uL (4.2-5.4); RED CELL DISTRIBUTION WIDTH 19.5 % (11.6-14.6)
[2017-09-24 14:18] LABS: INR 1.3; PARTIAL THROMBOPLASTIN TIME 32.9 sec (23.4-31.0); PROTHROMBIN TIME 13.2 sec (9.4-11.6)
== END | disposition home or self-care (01) ==
LOC: LAB 13:43
PROVIDERS: ATTEND Internal Medicine Nephrology
DX: R18.8 Other ascites (principal); K21.9 Gastro-esophageal reflux disease without esophagitis; E11.22 Type 2 diabetes mellitus with diabetic chronic kidney disease; I12.0 Hypertensive chronic kidney disease with stage 5 chronic kidney disease or end stage renal disease; N18.6 End stage renal disease
CPT/HCPCS: 36415; 80048; 85025; 85610; 85730

== ENCOUNTER → 2017-10-03 | Day surgery (SDC) | payer MEDICARE, MEDICAID ==
[~2017-10-03] MED LIST changes: +LIDOCAINE HCL/PF 1% 10 MG/ML 5ML VIAL ONE; +SODIUM BICARBONATE 4% (2.4MEQ) 5ML VIAL IV ONE
== END | disposition home or self-care (01) ==
LOC: RAD 10:53
PROVIDERS: ATTEND Internal Medicine Nephrology
DX: R18.8 Other ascites (principal); I13.2 Hypertensive heart and chronic kidney disease with heart failure and with stage 5 chronic kidney disease, or end stage renal disease; E11.22 Type 2 diabetes mellitus with diabetic chronic kidney disease; N18.6 End stage renal disease; I50.9 Heart failure, unspecified; F17.210 Nicotine dependence, cigarettes, uncomplicated; K21.9 Gastro-esophageal reflux disease without esophagitis; E03.9 Hypothyroidism, unspecified; Z99.2 Dependence on renal dialysis; Z79.01 Long term (current) use of anticoagulants; Z79.84 Long term (current) use of oral hypoglycemic drugs; Z79.82 Long term (current) use of aspirin; Z79.899 Other long term (current) drug therapy; Z90.81 Acquired absence of spleen; Z98.890 Other specified postprocedural states; Z83.3 Family history of diabetes mellitus; Z82.49 Family history of ischemic heart disease and other diseases of the circulatory system
CPT/HCPCS: 49083; J3490

== ENCOUNTER → 2018-03-26 | Outpatient (CLI) | payer MEDICARE, MEDICAID ==
[~2018-03-26] MED LIST changes: -LIDOCAINE HCL/PF 1% 10 MG/ML 5ML VIAL ONE; -SODIUM BICARBONATE 4% (2.4MEQ) 5ML VIAL IV ONE
== END | disposition home or self-care (01) ==
LOC: US 10:05
PROVIDERS: ATTEND Surgery
DX: N63.10 Unspecified lump in the right breast, unspecified quadrant (principal); N63.20 Unspecified lump in the left breast, unspecified quadrant; R59.9 Enlarged lymph nodes, unspecified
CPT/HCPCS: 76642

== ENCOUNTER 2018-06-19 17:24 | Inpatient (IN) | payer MEDICARE, MEDICAID ==
[~2018-06-19] VITALS: Ht 170.2 cm; Wt 76.2 kg
[2018-06-19] MEDS ORDERED: NITROGLYCERIN OINT 1GM/INCH UDPKT TD ONE (17:45)
[2018-06-19 18:37] LABS: BASOPHILS % 1.7 % (0.0-2.0); EOSINOPHILS % 6.8 % (0.0-5.0); HEMOGLOBIN. 11.6 g/dL (12.0-16.0); LYMPHOCYTES % 22.6 % (20.0-50.0); MEAN CORPUSCULAR HEMOGLOBIN 33.5 pg (28.0-32.0); MEAN CORPUSCULAR VOLUME 103.5 fL (81.0-99.0); MEAN PLATELET VOLUME 6.8 fl (7.4-10.4); MONOCYTES % 8.1 % (2.0-8.0); NEUTROPHILS % 60.8 % (40.0-76.0); PLATELET 230 x1000/uL (130-400); RED BLOOD CELL COUNT 3.48 mill/uL (4.2-5.4); RED CELL DISTRIBUTION WIDTH 19.7 % (11.6-14.6)
[2018-06-19 18:40] LABS: CHLORIDE 104 mEq/L (98-107)
[2018-06-19 18:45] LABS: INR 1.2
[2018-06-19] MEDS ORDERED: VANCOMYCIN 1 G PREMIX 200 ML IV ONE (19:00)
[2018-06-19] MEDS ORDERED: LEVOFLOXACIN 750MG PREMIX 150 ML IV ONE (19:00)
[2018-06-19] MEDS ORDERED: PIPERACILLIN/TAZ 3.375G PREMIX 50 ML IV ONE (19:00)
[2018-06-19] MEDS ORDERED: ONDANSETRON HCL 4MG/2ML INJ IV STA (19:08)
[2018-06-19] MEDS ORDERED: MORPHINE SULFATE 4 MG/ML CPJ (NOT FOR IM USE) IV STA (19:08)
[2018-06-19] MEDS ORDERED: NITROGLYCERIN 0.4MG TABLET SL SL PRN (20:15)
[2018-06-19] MEDS ORDERED: IPRATROPIUM/ALBUTEROL 0.5-3(2.5)MG/3ML NEB INH PRN (20:30)
[2018-06-19] MEDS ORDERED: DOCUSATE SODIUM 100MG CAPSULE PO PRN (20:30)
[2018-06-19] MEDS ORDERED: ONDANSETRON HCL 4MG/2ML INJ IV PRN (20:30)
[2018-06-19] MEDS ORDERED: CLONIDINE 0.1MG TABLET PO PRN (20:30)
[2018-06-19] MEDS ORDERED: MAGNESIUM/ALUMINUM HYDROXIDE/SIMETHICONE 30ML UDC PO PRN (20:30)
[2018-06-19] MEDS ORDERED: ENOXAPARIN 40MG/0.4ML SYR SUBCUT SCH (20:30)
[2018-06-19] MEDS ORDERED: GUAIFENESIN 200MG/10ML SUGAR FREE UDC PO PRN (20:30)
[2018-06-19] MEDS ORDERED: ACETAMINOPHEN 325MG TABLET PO PRN (20:30)
[2018-06-19] MEDS ORDERED: FAMOTIDINE 20MG TABLET PO SCH (21:00)
[2018-06-19] MEDS: DIPHENHYDRAMINE 50MG/ML VIAL IV PRN (22:07)
[2018-06-19] MEDS: TRAMADOL 50MG TABLET PO PRN (22:07)
[2018-06-19 22:29] LABS: CREATINE KINASE MB FRACTION 1.7 ng/mL (0.5-3.6)
[2018-06-20] MEDS ORDERED: AZITHROMYCIN 500 MG in DEXT 5% WATER 250 ML IV SCH (04:00)
[2018-06-20 05:00] VITALS: BP 120/70
[2018-06-20] MEDS ORDERED: CEFTRIAXONE 1 G PREMIX 50 ML IV SCH (06:00)
[2018-06-20] MEDS: DIPHENHYDRAMINE 50MG/ML VIAL IV PRN ×2 (06:18→19:07)
[2018-06-20] MEDS: TRAMADOL 50MG TABLET PO PRN ×2 (06:19→12:31)
[2018-06-20] MEDS: LORAZEPAM 0.5MG TABLET PO PRN ×2 (06:36→21:26)
[2018-06-20] MEDS ORDERED: PARICALCITOL 1 MCG CAPSULE PO ONE (07:45)
[2018-06-20 08:00] VITALS: BP 111/56
[2018-06-20] MEDS: SEVELAMER CARBONATE 800 MG TABLET PO SCH ×3 (08:50→22:00)
[2018-06-20] MEDS: AMLODIPINE 10MG TABLET PO SCH (09:00)
[2018-06-20] MEDS: LISINOPRIL 20MG TABLET PO SCH ×2 (09:00→21:49)
[2018-06-20] MEDS: METOPROLOL TARTRATE 25MG TABLET PO SCH ×2 (09:00→21:48)
[2018-06-20] MEDS: FAMOTIDINE 20MG TABLET PO SCH (09:41)
[2018-06-20] MEDS: FOLIC ACID/VITAMIN B COMP W-C TABLET PO SCH (09:41)
[2018-06-20] MEDS: GUAIFENESIN/DM 600MG/30MG ER TAB 12HR PO SCH ×2 (09:42→21:48)
[2018-06-20] MEDS: ENOXAPARIN 30MG/0.3ML SYR SUBCUT SCH (09:43)
[2018-06-20 12:00] VITALS: BP 120/68
[2018-06-20] MEDS: CEFTRIAXONE 1 G PREMIX 50 ML IV SCH (12:13)
[2018-06-20 16:00] VITALS: BP 118/79
[2018-06-20] MEDS: HYDROCODONE/ACETAMINOPHEN 10/325MG TABLET PO PRN ×2 (17:51→23:42)
[2018-06-20 18:11] LABS: CREATINE KINASE MB FRACTION 1.3 ng/mL (0.5-3.6)
[2018-06-20 20:00] VITALS: BP 120/80
[2018-06-20] MEDS ORDERED: PARICALCITOL 2 MCG/ML VIAL IV SCH (21:00)
[2018-06-20] MEDS: ZOLPIDEM TARTRATE 5MG TABLET PO PRN (21:48)
[2018-06-21] VITALS: BP 116/68
[2018-06-21] MEDS: AZITHROMYCIN 500 MG in DEXT 5% WATER 250 ML IV SCH (01:01)
[2018-06-21] MEDS: DIPHENHYDRAMINE 50MG/ML VIAL IV PRN ×2 (02:37→09:02)
[2018-06-21 04:00] VITALS: BP 103/56
[2018-06-21 08:00] VITALS: BP 118/64
[2018-06-21] MEDS ORDERED: LIDOCAINE HCL 1% 20ML VIAL (Pyxis) INJ ONE (08:28)
[2018-06-21] MEDS ORDERED: SODIUM BICARBONATE 4% (2.4MEQ) 5ML VIAL IV ONE (08:29)
[2018-06-21] MEDS: SEVELAMER CARBONATE 800 MG TABLET PO SCH ×3 (09:02→18:18)
[2018-06-21] MEDS: HYDROCODONE/ACETAMINOPHEN 10/325MG TABLET PO PRN ×2 (09:03→18:18)
[2018-06-21] MEDS: AMLODIPINE 10MG TABLET PO SCH (10:17)
[2018-06-21] MEDS: GUAIFENESIN/DM 600MG/30MG ER TAB 12HR PO SCH ×2 (10:17→20:55)
[2018-06-21] MEDS: METOPROLOL TARTRATE 25MG TABLET PO SCH ×2 (10:18→20:30)
[2018-06-21] MEDS: LISINOPRIL 20MG TABLET PO SCH ×2 (10:18→20:30)
[2018-06-21] MEDS: FOLIC ACID/VITAMIN B COMP W-C TABLET PO SCH (10:18)
[2018-06-21] MEDS: ENOXAPARIN 30MG/0.3ML SYR SUBCUT SCH (10:18)
[2018-06-21] MEDS: FAMOTIDINE 20MG TABLET PO SCH (10:18)
[2018-06-21] MEDS: TRAMADOL 50MG TABLET PO PRN (10:54)
[2018-06-21 12:00] VITALS: BP_SYST 124; BP_SYST 151; BP_DIAS 64; BP_DIAS 85
[2018-06-21] MEDS: DIPHENHYDRAMINE 25MG CAPSULE PO PRN ×2 (12:19→20:57)
[2018-06-21] MEDS: CEFTRIAXONE 1 G PREMIX 50 ML IV SCH (12:19)
[2018-06-21 16:00] VITALS: BP 116/68
[2018-06-21 20:00] VITALS: BP 105/53
[2018-06-21] MEDS: LORAZEPAM 0.5MG TABLET PO PRN (20:53)
[2018-06-21] MEDS: ZOLPIDEM TARTRATE 5MG TABLET PO PRN (20:57)
[2018-06-22] VITALS: BP 126/66
[2018-06-22] MEDS: AZITHROMYCIN 500 MG in DEXT 5% WATER 250 ML IV SCH (01:28)
[2018-06-22] MEDS: HYDROCODONE/ACETAMINOPHEN 10/325MG TABLET PO PRN ×2 (01:28→09:09)
[2018-06-22] MEDS: DIPHENHYDRAMINE 25MG CAPSULE PO PRN ×2 (02:32→09:08)
[2018-06-22 04:00] VITALS: BP 132/68
[2018-06-22 08:00] VITALS: BP 133/70
[2018-06-22] MEDS: SEVELAMER CARBONATE 800 MG TABLET PO SCH (08:56)
[2018-06-22] MEDS: LISINOPRIL 20MG TABLET PO SCH (08:57)
[2018-06-22] MEDS: GUAIFENESIN/DM 600MG/30MG ER TAB 12HR PO SCH (08:57)
[2018-06-22] MEDS: FAMOTIDINE 20MG TABLET PO SCH (08:57)
[2018-06-22] MEDS: AMLODIPINE 10MG TABLET PO SCH (08:57)
[2018-06-22] MEDS: FOLIC ACID/VITAMIN B COMP W-C TABLET PO SCH (08:57)
[2018-06-22] MEDS: ENOXAPARIN 30MG/0.3ML SYR SUBCUT SCH (08:58)
[2018-06-22] MEDS: CEFTRIAXONE 1 G PREMIX 50 ML IV SCH (08:58)
[2018-06-22] MEDS: METOPROLOL TARTRATE 25MG TABLET PO SCH (08:58)
[2018-06-22 12:00] VITALS: BP 114/66
[2018-06-22 12:51] VITALS: BP 114/66
== END 2018-06-22 15:25 | DRG 193 ==
LOC: ER 18:15 → EDBEDREQ 19:03 → 7WST 23:08 → EDBEDREQ 23:20 → EDBEDREQTM 23:20 → ENRESERV 23:38 → CANRESERV 23:38 → ENRESERV 06-20 04:13
PROVIDERS: ADMIT Internal Medicine; ATTEND Internal Medicine
PROC: 5A1D70Z Performance of Urinary Filtration, Intermittent, Less than 6 Hours Per Day (ICD-10-PCS; 2018-06-20)
PROC: 0R9M3ZX Drainage of Left Elbow Joint, Percutaneous Approach, Diagnostic (ICD-10-PCS; principal; 2018-06-21)
DX: J18.9 Pneumonia, unspecified organism (principal); N18.6 End stage renal disease; E44.0 Moderate protein-calorie malnutrition; I12.0 Hypertensive chronic kidney disease with stage 5 chronic kidney disease or end stage renal disease; N25.81 Secondary hyperparathyroidism of renal origin; D63.8 Anemia in other chronic diseases classified elsewhere; M70.32 Other bursitis of elbow, left elbow; F10.20 Alcohol dependence, uncomplicated; E83.51 Hypocalcemia; E83.52 Hypercalcemia; I25.2 Old myocardial infarction; Z82.49 Family history of ischemic heart disease and other diseases of the circulatory system; Z90.81 Acquired absence of spleen; Z91.19 Patient's noncompliance with other medical treatment and regimen; Z99.2 Dependence on renal dialysis; Z79.2 Long term (current) use of antibiotics; Z79.82 Long term (current) use of aspirin; Z79.899 Other long term (current) drug therapy; Y93.89 Activity, other specified; Z68.26 Body mass index [BMI] 26.0-26.9, adult
CPT/HCPCS: 20611; 36415; 71045; 76881; 80061; 82550; 82553; 82962; 83036; 83605; 83615; 83880; 84132; 84484; 93005; 93970; 96374; 99285; C1893; J0456; J0696; J1200; J1650; J1956; J2270; J2405; J2543; J3370; J3490; J7050; J7060; Q0163

== ENCOUNTER 2018-07-23 14:25 | Inpatient (IN) | payer MEDICARE, MEDICAID ==
[~2018-07-23] VITALS: Ht 170.2 cm; Wt 56.7 kg
[2018-07-23] MEDS ORDERED: ONDANSETRON HCL 4MG/2ML INJ IV STA (15:28)
[2018-07-23] MEDS ORDERED: MORPHINE SULFATE 4 MG/ML CPJ (NOT FOR IM USE) IV STA (15:28)
[2018-07-23] MEDS ORDERED: ASPIRIN 81MG TABLET PO ONE (15:30)
[2018-07-23 16:01] LABS: CHLORIDE 106 mEq/L (98-107)
[2018-07-23 16:04] LABS: INR 1.2; PARTIAL THROMBOPLASTIN TIME 33.3 sec (23.4-31.0); PROTHROMBIN TIME 11.9 sec (9.6-11.0)
[2018-07-23 16:06] LABS: EOSINOPHILS % 6.1 % (0.0-5.0); HEMATOCRIT. 35.7 % (36.0-48.0); HEMOGLOBIN. 11.9 g/dL (12.0-16.0); LYMPHOCYTES % 12.8 % (20.0-50.0); MEAN CORPUSCULAR HEMOGLOBIN 35.7 pg (28.0-32.0); MEAN CORPUSCULAR VOLUME 107.4 fL (81.0-99.0); MONOCYTES % 6.4 % (2.0-8.0); NEUTROPHILS % 71.7 % (40.0-76.0); PLATELET 242 x1000/uL (130-400); RED BLOOD CELL COUNT 3.32 mill/uL (4.2-5.4); RED CELL DISTRIBUTION WIDTH 24.2 % (11.6-14.6)
[2018-07-23] MEDS ORDERED: CLONIDINE 0.2MG TABLET PO ONE (16:30)
[2018-07-23 16:46] LABS: PLATELET ESTIMATE NORMAL
[2018-07-23] MEDS ORDERED: MORPHINE SULFATE 4 MG/ML CPJ (NOT FOR IM USE) IV ONE (17:30)
[2018-07-23] MEDS ORDERED: ONDANSETRON HCL 4MG/2ML INJ IV ONE (17:30)
[2018-07-23 20:00] VITALS: BP 120/72
[2018-07-23] MEDS ORDERED: CLONIDINE 0.1MG TABLET PO PRN (20:45)
[2018-07-23] MEDS ORDERED: ZOLPIDEM TARTRATE 5MG TABLET PO PRN (20:45)
[2018-07-23] MEDS ORDERED: ACETAMINOPHEN 325MG TABLET PO PRN (20:45)
[2018-07-23] MEDS ORDERED: IPRATROPIUM/ALBUTEROL 0.5-3(2.5)MG/3ML NEB INH PRN (20:45)
[2018-07-23] MEDS ORDERED: ONDANSETRON HCL 4MG/2ML INJ IV PRN (20:45)
[2018-07-23] MEDS ORDERED: MAGNESIUM/ALUMINUM HYDROXIDE/SIMETHICONE 30ML UDC PO PRN (20:45)
[2018-07-23] MEDS ORDERED: GUAIFENESIN 200MG/10ML SUGAR FREE UDC PO PRN (20:45)
[2018-07-23] MEDS ORDERED: TRAMADOL 50MG TABLET PO PRN (20:45)
[2018-07-23] MEDS ORDERED: LORAZEPAM 0.5MG TABLET PO PRN (20:45)
[2018-07-23] MEDS ORDERED: DOCUSATE SODIUM 100MG CAPSULE PO PRN (20:45)
[2018-07-23] MEDS: ENOXAPARIN 40MG/0.4ML SYR SUBCUT SCH (21:30)
[2018-07-23] MEDS: GUAIFENESIN 600MG ER TABLET PO SCH (22:00)
[2018-07-23] MEDS: FAMOTIDINE 20MG TABLET PO SCH (22:00)
[2018-07-23] MEDS: HYDRALAZINE HCL 50MG TABLET PO SCH (23:14)
[2018-07-23] MEDS: MORPHINE SULFATE 4 MG/ML CPJ (NOT FOR IM USE) IV PRN (23:58)
[2018-07-24] VITALS: BP 177/82
[2018-07-24 01:14] LABS: CREATINE KINASE MB FRACTION 1.6 ng/mL (0.5-3.6)
[2018-07-24 04:00] VITALS: BP 173/81
[2018-07-24] MEDS: HYDRALAZINE HCL 50MG TABLET PO SCH ×3 (06:18→21:15)
[2018-07-24] MEDS: MORPHINE SULFATE 4 MG/ML CPJ (NOT FOR IM USE) IV PRN ×3 (06:19→20:20)
[2018-07-24] MEDS: DIPHENHYDRAMINE 50MG/ML VIAL IV PRN ×2 (06:27→21:14)
[2018-07-24 06:52] LABS: CREATINE KINASE MB FRACTION 1.6 ng/mL (0.5-3.6)
[2018-07-24] MEDS ORDERED: SEVELAMER CARBONATE 800 MG TABLET PO SCH (07:40)
[2018-07-24 08:00] VITALS: BP 117/78
[2018-07-24] MEDS: ASPIRIN 325MG EC TABLET PO SCH (09:06)
[2018-07-24] MEDS: LOSARTAN POTASSIUM 50 MG TABLET PO SCH ×2 (09:06→17:44)
[2018-07-24] MEDS: GUAIFENESIN 600MG ER TABLET PO SCH ×2 (09:06→20:16)
[2018-07-24] MEDS: AMLODIPINE 10MG TABLET PO SCH (09:06)
[2018-07-24] MEDS: SEVELAMER CARBONATE 800 MG TABLET PO SCH ×3 (09:06→17:44)
[2018-07-24] MEDS: FOLIC ACID/VITAMIN B COMP W-C TABLET PO SCH (09:06)
[2018-07-24 11:59] VITALS: BP 155/73
[2018-07-24 15:58] VITALS: BP 154/72
[2018-07-24 20:00] VITALS: BP 94/60
[2018-07-24] MEDS: FAMOTIDINE 20MG TABLET PO SCH (20:16)
[2018-07-24] MEDS: ENOXAPARIN 40MG/0.4ML SYR SUBCUT SCH ×2 (20:18→20:28)
[2018-07-25] VITALS: BP 175/86
[2018-07-25] MEDS: MORPHINE SULFATE 4 MG/ML CPJ (NOT FOR IM USE) IV PRN ×3 (03:28→16:36)
[2018-07-25 04:00] VITALS: BP 129/58
[2018-07-25] MEDS: HYDRALAZINE HCL 50MG TABLET PO SCH ×2 (06:03→13:53)
[2018-07-25 08:00] VITALS: BP 126/60
[2018-07-25] MEDS: LOSARTAN POTASSIUM 50 MG TABLET PO SCH ×2 (08:49→16:15)
[2018-07-25] MEDS: AMLODIPINE 10MG TABLET PO SCH (08:49)
[2018-07-25] MEDS: ASPIRIN 325MG EC TABLET PO SCH (08:58)
[2018-07-25] MEDS: GUAIFENESIN 600MG ER TABLET PO SCH (08:59)
[2018-07-25] MEDS: FOLIC ACID/VITAMIN B COMP W-C TABLET PO SCH (08:59)
[2018-07-25] MEDS: SEVELAMER CARBONATE 800 MG TABLET PO SCH ×3 (08:59→18:10)
[2018-07-25] MEDS: DIPHENHYDRAMINE 50MG/ML VIAL IV PRN (09:56)
[2018-07-25 12:00] VITALS: BP 156/70
[2018-07-25 15:55] VITALS: BP 157/77
== END 2018-07-25 18:42 | disposition home or self-care (01) | DRG 291 ==
LOC: ER 14:25 → 8WST 16:59 → EDBEDREQ 17:03 → ENRESERV 17:21
PROVIDERS: ADMIT Internal Medicine; ATTEND Internal Medicine
PROC: 5A1D70Z Performance of Urinary Filtration, Intermittent, Less than 6 Hours Per Day (ICD-10-PCS; 2018-07-23)
PROC: 0R9M3ZZ Drainage of Left Elbow Joint, Percutaneous Approach (ICD-10-PCS; principal; 2018-07-24)
DX: I13.2 Hypertensive heart and chronic kidney disease with heart failure and with stage 5 chronic kidney disease, or end stage renal disease (principal); N18.6 End stage renal disease; E43 Unspecified severe protein-calorie malnutrition; I50.31 Acute diastolic (congestive) heart failure; E87.5 Hyperkalemia; R07.89 Other chest pain; E87.70 Fluid overload, unspecified; Z99.2 Dependence on renal dialysis; E83.51 Hypocalcemia; M70.22 Olecranon bursitis, left elbow; D63.8 Anemia in other chronic diseases classified elsewhere; K21.9 Gastro-esophageal reflux disease without esophagitis; Z79.82 Long term (current) use of aspirin; Z82.49 Family history of ischemic heart disease and other diseases of the circulatory system; Z87.891 Personal history of nicotine dependence; Z90.81 Acquired absence of spleen; Z91.19 Patient's noncompliance with other medical treatment and regimen; I25.2 Old myocardial infarction; Y93.89 Activity, other specified
CPT/HCPCS: 20611; 36415; 71045; 73070; 80061; 82550; 82553; 83036; 83880; 84484; 84550; 93005; 93970; 96374; 96375; 96376; 99285; J1200; J1650; J2270; J2405

== ENCOUNTER 2018-08-02 20:24 | Inpatient (IN) | payer MEDICARE, MEDICAID ==
[~2018-08-02] VITALS: Ht 170.2 cm; Wt 66.7 kg
[~2018-08-02 20:24] MED LIST changes: -ASPI-986 PO
[2018-08-02] MEDS ORDERED: MORPHINE SULFATE 4 MG/ML CPJ (NOT FOR IM USE) IV STA (21:35)
[2018-08-02] MEDS ORDERED: ONDANSETRON HCL 4MG/2ML INJ IV STA (21:35)
[2018-08-02 22:16] LABS: BASOPHILS % 0.4 % (0.0-2.0); EOSINOPHILS % 14.6 % (0.0-5.0); HEMATOCRIT. 34.3 % (36.0-48.0); HEMOGLOBIN. 11.2 g/dL (12.0-16.0); LYMPHOCYTES % 13.5 % (20.0-50.0); MEAN CORPUSCULAR HEMOGLOBIN 36.3 pg (28.0-32.0); MEAN CORPUSCULAR VOLUME 110.8 fL (81.0-99.0); MEAN PLATELET VOLUME 7.7 fl (7.4-10.4); MONOCYTES % 5.5 % (2.0-8.0); PLATELET 248 x1000/uL (130-400); RED BLOOD CELL COUNT 3.09 mill/uL (4.2-5.4); RED CELL DISTRIBUTION WIDTH 23.1 % (11.6-14.6)
[2018-08-02 22:20] LABS: CHLORIDE 103 mEq/L (98-107)
[2018-08-02 22:24] LABS: INR 1.2; PARTIAL THROMBOPLASTIN TIME 34.1 sec (23.4-31.0)
[2018-08-02] MEDS ORDERED: DIPHENHYDRAMINE 50MG/ML VIAL IV ONE (23:30)
[2018-08-02] MEDS ORDERED: KETOROLAC 30MG/ML VIAL IV ONE (23:30)
[2018-08-03 01:30] VITALS: BP 160/86
[2018-08-03] MEDS ORDERED: MEDICATION NOT ON FORMULARY EA (Amiodarone HCl 200 MG) PO SCH (03:30)
[2018-08-03] MEDS ORDERED: MEDICATION NOT ON FORMULARY EA (Acetaminophen (Tylenol) 650 MG) PO SCH (03:30)
[2018-08-03] MEDS ORDERED: ASPI-1158 PO (03:35)
[2018-08-03] MEDS ORDERED: HYDR50SY PO (03:36)
[2018-08-03] MEDS ORDERED: ACETAMINOPHEN 325MG TABLET PO PRN ×2 (03:45→09:45)
[2018-08-03] MEDS ORDERED: TRAZ-212 PO (03:56)
[2018-08-03 04:00] VITALS: BP 160/79
[2018-08-03] MEDS ORDERED: CLONIDINE 0.2MG TABLET PO PRN (04:00)
[2018-08-03] MEDS ORDERED: ONDANSETRON HCL 4MG/2ML INJ IV PRN (04:00)
[2018-08-03] MEDS ORDERED: DOCUSATE SODIUM 100MG CAPSULE PO PRN ×2 (04:00→09:45)
[2018-08-03 08:00] VITALS: BP 156/83
[2018-08-03] MEDS ORDERED: MEDICATION NOT ON FORMULARY EA (Aspirin (Aspirin Ec) 81 MG) PO SCH (09:00)
[2018-08-03] MEDS ORDERED: ENOXAPARIN 40MG/0.4ML SYR SUBCUT SCH (09:00)
[2018-08-03] MEDS ORDERED: CYANOCOBALAMIN 1000 MCG PO SCH (09:00)
[2018-08-03] MEDS: ENOXAPARIN 30MG/0.3ML SYR SUBCUT SCH (09:00)
[2018-08-03] MEDS ORDERED: MEDICATION NOT ON FORMULARY EA (Pantoprazole Sodium 40 MG) PO SCH (09:00)
[2018-08-03] MEDS: CYANOCOBALAMIN 1000MCG TABLET PO SCH (09:21)
[2018-08-03] MEDS: TRAMADOL 50MG TABLET PO PRN ×3 (09:21→21:07)
[2018-08-03] MEDS: PANTOPRAZOLE 40MG DR TABLET PO SCH (09:21)
[2018-08-03] MEDS: ASPIRIN 81MG EC TABLET PO SCH (09:21)
[2018-08-03] MEDS: AMIODARONE HCL 200 MG TABLET PO SCH (09:21)
[2018-08-03] MEDS ORDERED: GUAIFENESIN 200MG/10ML SUGAR FREE UDC PO PRN (09:45)
[2018-08-03] MEDS ORDERED: LORAZEPAM 0.5MG TABLET PO PRN (09:45)
[2018-08-03] MEDS ORDERED: IPRATROPIUM/ALBUTEROL 0.5-3(2.5)MG/3ML NEB INH PRN (09:45)
[2018-08-03] MEDS ORDERED: NITROGLYCERIN 0.4MG TABLET SL SL PRN (09:45)
[2018-08-03] MEDS: METOPROLOL TARTRATE 25MG TABLET PO SCH (10:31)
[2018-08-03] MEDS: FOLIC ACID/VITAMIN B COMP W-C TABLET PO SCH (10:32)
[2018-08-03 12:00] VITALS: BP 168/89
[2018-08-03 13:38] LABS: BASOPHILS % 0.9 % (0.0-2.0); EOSINOPHILS % 13.1 % (0.0-5.0); HEMATOCRIT. 32.3 % (36.0-48.0); HEMOGLOBIN. 10.5 g/dL (12.0-16.0); LYMPHOCYTES % 17.9 % (20.0-50.0); MEAN CORPUSCULAR HEMOGLOBIN 36.2 pg (28.0-32.0); MEAN CORPUSCULAR VOLUME 111.7 fL (81.0-99.0); MEAN PLATELET VOLUME 7.8 fl (7.4-10.4); MONOCYTES % 6.1 % (2.0-8.0); PLATELET 263 x1000/uL (130-400); RED BLOOD CELL COUNT 2.89 mill/uL (4.2-5.4); RED CELL DISTRIBUTION WIDTH 23.4 % (11.6-14.6)
[2018-08-03 13:43] LABS: CHLORIDE 103 mEq/L (98-107)
[2018-08-03 13:52] LABS: CREATINE KINASE MB FRACTION 1.2 ng/mL (0.5-3.6)
[2018-08-03 13:53] LABS: CREATINE KINASE 92 IU/L (26-192)
[2018-08-03 14:29] LABS: PLATELET ESTIMATE NORMAL
[2018-08-03 16:00] VITALS: BP 168/86
[2018-08-03] MEDS ORDERED: SODIUM POLYSTYRENE SULFONATE 15 G/60 ML BOT PO NR (17:00)
[2018-08-03] MEDS: HYDRALAZINE HCL 50MG TABLET PO SCH (18:21)
[2018-08-03 20:00] VITALS: BP 151/80
[2018-08-03] MEDS ORDERED: MEDICATION NOT ON FORMULARY EA (Calcium Acetate 667 MG) PO SCH (21:00)
[2018-08-03] MEDS: TRAZODONE HCL 50MG TABLET PO SCH (21:00)
[2018-08-04] VITALS: BP 159/79
[2018-08-04] MEDS: HYDRALAZINE HCL 50MG TABLET PO SCH ×4 (00:23→21:28)
[2018-08-04] MEDS: CALCIUM ACETATE 667MG CAPSULE PO SCH ×2 (00:23→21:28)
[2018-08-04] MEDS: METOPROLOL TARTRATE 25MG TABLET PO SCH ×3 (00:23→21:28)
[2018-08-04] MEDS: AMIODARONE HCL 200 MG TABLET PO SCH ×3 (00:24→21:35)
[2018-08-04] MEDS: DIPHENHYDRAMINE 50MG/ML VIAL IV PRN ×4 (00:25→21:35)
[2018-08-04 04:00] VITALS: BP 146/74
[2018-08-04] MEDS: LOSARTAN POTASSIUM 50 MG TABLET PO SCH ×2 (08:00→21:28)
[2018-08-04] MEDS ORDERED: DOCUSATE SODIUM SUGAR FREE 100MG/10ML UDC NG SCH (08:00)
[2018-08-04] MEDS ORDERED: CEFAZOLIN SODIUM 1000MG/VIAL IM ONE (08:15)
[2018-08-04 08:16] VITALS: BP 111/65
[2018-08-04] MEDS: CYANOCOBALAMIN 1000MCG TABLET PO SCH (08:57)
[2018-08-04] MEDS: FOLIC ACID/VITAMIN B COMP W-C TABLET PO SCH (08:57)
[2018-08-04] MEDS: PANTOPRAZOLE 40MG DR TABLET PO SCH (08:58)
[2018-08-04] MEDS: ASPIRIN 81MG EC TABLET PO SCH (08:58)
[2018-08-04] MEDS: TRAMADOL 50MG TABLET PO PRN ×3 (08:58→21:28)
[2018-08-04] MEDS: ENOXAPARIN 30MG/0.3ML SYR SUBCUT SCH (09:00)
[2018-08-04 11:36] VITALS: BP 125/59
[2018-08-04] MEDS ORDERED: CEFAZOLIN 1000MG PREMIX 50 ML IV SCH (12:00)
[2018-08-04] MEDS ORDERED: LIDOCAINE HCL 1% 20ML VIAL (Pyxis) INJ ONE (13:37)
[2018-08-04 16:20] VITALS: BP 140/77
[2018-08-04 20:00] VITALS: BP 145/61
[2018-08-04] MEDS: TRAZODONE HCL 50MG TABLET PO SCH (21:36)
[2018-08-05] VITALS (7 sets, daily range): BP systolic 92–122; BP diastolic 42–71
[2018-08-05] MEDS: MORPHINE SULFATE 4 MG/ML CPJ (NOT FOR IM USE) IV PRN ×2 (00:42→09:35)
[2018-08-05] MEDS: HYDRALAZINE HCL 50MG TABLET PO SCH (06:00)
[2018-08-05] MEDS: METOPROLOL TARTRATE 25MG TABLET PO SCH (09:00)
[2018-08-05] MEDS ORDERED: FAMOTIDINE 20MG TABLET PO SCH (09:00)
[2018-08-05] MEDS: ENOXAPARIN 30MG/0.3ML SYR SUBCUT SCH (09:00)
[2018-08-05] MEDS: CYANOCOBALAMIN 1000MCG TABLET PO SCH (09:32)
[2018-08-05] MEDS: LOSARTAN POTASSIUM 50 MG TABLET PO SCH (09:32)
[2018-08-05] MEDS: FOLIC ACID/VITAMIN B COMP W-C TABLET PO SCH (09:32)
[2018-08-05] MEDS: ASPIRIN 81MG EC TABLET PO SCH (09:32)
[2018-08-05] MEDS: AMIODARONE HCL 200 MG TABLET PO SCH (10:31)
== END 2018-08-05 19:27 | disposition home or self-care (01) | DRG 291 ==
LOC: ER 20:24 → EDBEDREQ 21:47 → 7WST 22:04 → EDBEDREQTM 23:37 → EDBEDREQ 23:37 → ENRESERV 08-03 00:26
PROVIDERS: ADMIT Internal Medicine; ATTEND Internal Medicine
PROC: 5A1D70Z Performance of Urinary Filtration, Intermittent, Less than 6 Hours Per Day (ICD-10-PCS; principal; 2018-08-03)
PROC: 0R9M3ZZ Drainage of Left Elbow Joint, Percutaneous Approach (ICD-10-PCS; 2018-08-04)
PROC: 3E0U33Z Introduction of Anti-inflammatory into Joints, Percutaneous Approach (ICD-10-PCS; 2018-08-04)
DX: I13.2 Hypertensive heart and chronic kidney disease with heart failure and with stage 5 chronic kidney disease, or end stage renal disease (principal); I50.33 Acute on chronic diastolic (congestive) heart failure; N18.6 End stage renal disease; E43 Unspecified severe protein-calorie malnutrition; M25.422 Effusion, left elbow; E87.5 Hyperkalemia; E83.51 Hypocalcemia; R07.89 Other chest pain; K21.9 Gastro-esophageal reflux disease without esophagitis; F17.210 Nicotine dependence, cigarettes, uncomplicated; D63.8 Anemia in other chronic diseases classified elsewhere; J40 Bronchitis, not specified as acute or chronic; I25.2 Old myocardial infarction; Z91.15 Patient's noncompliance with renal dialysis; Z90.81 Acquired absence of spleen; Z99.2 Dependence on renal dialysis; Z91.14 Patient's other noncompliance with medication regimen; Z79.899 Other long term (current) drug therapy; Z68.23 Body mass index [BMI] 23.0-23.9, adult; Z91.11 Patient's noncompliance with dietary regimen; Z82.49 Family history of ischemic heart disease and other diseases of the circulatory system
CPT/HCPCS: 20611; 36415; 71045; 82550; 82553; 83605; 83880; 84145; 84484; 93005; 99285; J0690; J1200; J1650; J1885; J2270; J2405; J3490; J7050

== ENCOUNTER 2018-08-14 23:54 | Emergency (ER) | payer MEDICARE, MEDICAID ==
[~2018-08-14] VITALS: Ht 170.2 cm; Wt 66.0 kg
[~2018-08-14 23:54] MED LIST changes: +ASPI-1158 PO; -CINA30 PO; +HYDR50SY PO; -HYDROXYZINE PO; +TRAZ-212 PO
[2018-08-15] MEDS ORDERED: MORPHINE SULFATE 4 MG/ML CPJ (NOT FOR IM USE) IV STA (01:05)
[2018-08-15] MEDS ORDERED: ONDANSETRON HCL 4MG/2ML INJ IV STA (01:05)
[2018-08-15 01:23] LABS: BASOPHILS % 1.9 % (0.0-2.0); EOSINOPHILS % 8.4 % (0.0-5.0); HEMATOCRIT. 32.2 % (36.0-48.0); HEMOGLOBIN. 10.5 g/dL (12.0-16.0); MEAN CORPUSCULAR HEMOGLOBIN 36.1 pg (28.0-32.0); MEAN CORPUSCULAR VOLUME 110.4 fL (81.0-99.0); MEAN PLATELET VOLUME 7.8 fl (7.4-10.4); MONOCYTES % 7.1 % (2.0-8.0); NEUTROPHILS % 70.6 % (40.0-76.0); PLATELET 241 x1000/uL (130-400); RED BLOOD CELL COUNT 2.92 mill/uL (4.2-5.4); RED CELL DISTRIBUTION WIDTH 21.3 % (11.6-14.6)
[2018-08-15 01:26] LABS: CHLORIDE 104 mEq/L (98-107)
[2018-08-15] MEDS ORDERED: HYDROCODONE/ACETAMINOPHEN 5/325MG TABLET PO ONE (05:30)
[2018-08-15 06:01] VITALS: BP 183/72
== END 2018-08-15 07:19 | disposition home or self-care (01) ==
LOC: ER 23:54
DX: M70.22 Olecranon bursitis, left elbow (principal); I12.0 Hypertensive chronic kidney disease with stage 5 chronic kidney disease or end stage renal disease; N18.6 End stage renal disease; I25.2 Old myocardial infarction; E16.2 Hypoglycemia, unspecified; G62.9 Polyneuropathy, unspecified; F17.200 Nicotine dependence, unspecified, uncomplicated; Z98.890 Other specified postprocedural states; Z79.899 Other long term (current) drug therapy; Z99.2 Dependence on renal dialysis; Z90.81 Acquired absence of spleen; Y93.89 Activity, other specified; Z79.82 Long term (current) use of aspirin
CPT/HCPCS: 36415; 71045; 73070; 80053; 84484; 85025; 93005; 96374; 96375; 99284; J2270; J2405

== ENCOUNTER 2018-08-30 17:29 | Inpatient (IN) | payer MEDICARE, MEDICAID ==
[~2018-08-30] VITALS: Ht 170.2 cm; Wt 70.8 kg
[2018-08-30] MEDS ORDERED: ONDANSETRON HCL 4MG/2ML INJ IV STA (18:43)
[2018-08-30] MEDS ORDERED: ACETAMINOPHEN 325MG TABLET PO STA (18:43)
[2018-08-30 19:22] LABS: BASOPHILS % 1.4 % (0.0-2.0); EOSINOPHILS % 5.2 % (0.0-5.0); HEMATOCRIT. 29.5 % (36.0-48.0); LYMPHOCYTES % 8.8 % (20.0-50.0); MEAN CORPUSCULAR HEMOGLOBIN 36.7 pg (28.0-32.0); MEAN CORPUSCULAR VOLUME 108.5 fL (81.0-99.0); MEAN PLATELET VOLUME 7.4 fl (7.4-10.4); MONOCYTES % 6.9 % (2.0-8.0); NEUTROPHILS % 77.7 % (40.0-76.0); PLATELET 265 x1000/uL (130-400); RED BLOOD CELL COUNT 2.72 mill/uL (4.2-5.4); RED CELL DISTRIBUTION WIDTH 19.2 % (11.6-14.6)
[2018-08-30 19:29] LABS: CHLORIDE 95 mEq/L (98-107)
[2018-08-30] MEDS ORDERED: CLONIDINE 0.2MG TABLET PO SCH (20:00)
[2018-08-30] MEDS ORDERED: ACETAMINOPHEN 325MG TABLET PO PRN (23:45)
[2018-08-30] MEDS ORDERED: MEDICATION NOT ON FORMULARY EA (Amiodarone HCl 200 MG) PO SCH (23:45)
[2018-08-30] MEDS ORDERED: ACETAMINOPHEN 650MG/20.3ML UDC GT PRN (23:45)
[2018-08-30] MEDS ORDERED: GUAIFENESIN PO SCH (23:45)
[2018-08-30] MEDS ORDERED: IPRATROPIUM/ALBUTEROL 0.5-3(2.5)MG/3ML NEB HHN PRN (23:45)
[2018-08-30] MEDS ORDERED: CODEINE PHOS PO SCH (23:45)
[2018-08-30] MEDS ORDERED: DIPHENHYDRAMINE 25MG CAPSULE PO PRN (23:45)
[2018-08-30] MEDS ORDERED: NITROGLYCERIN SL SCH (23:45)
[2018-08-30] MEDS ORDERED: DOCUSATE SODIUM 100MG CAPSULE PO PRN (23:45)
[2018-08-30] MEDS ORDERED: GUAIFENESIN 200MG/10ML SUGAR FREE UDC PO PRN (23:45)
[2018-08-30] MEDS ORDERED: [UNRECOGNIZED DRUG - OTHER] PO SCH (23:45)
[2018-08-30] MEDS ORDERED: MAGNESIUM/ALUMINUM HYDROXIDE/SIMETHICONE 30ML UDC PO PRN (23:45)
[2018-08-30] MEDS ORDERED: ACETAMINOPHEN 650MG SUPP PR PRN (23:45)
[2018-08-30] MEDS ORDERED: CLONIDINE 0.1MG TABLET PO PRN (23:45)
[2018-08-30] MEDS ORDERED: IPRATROPIUM/ALBUTEROL 0.5-3(2.5)MG/3ML NEB INH PRN (23:45)
[2018-08-30] MEDS: HYDROCODONE/ACETAMINOPHEN 5/325MG TABLET PO PRN (23:59)
[2018-08-31 05:31] LABS: BASOPHILS % 3.2 % (0.0-2.0); EOSINOPHILS % 7.8 % (0.0-5.0); HEMATOCRIT. 28.2 % (36.0-48.0); HEMOGLOBIN. 9.3 g/dL (12.0-16.0); LYMPHOCYTES % 16.3 % (20.0-50.0); MEAN CORPUSCULAR HEMOGLOBIN 36.1 pg (28.0-32.0); MEAN CORPUSCULAR VOLUME 109.3 fL (81.0-99.0); MEAN PLATELET VOLUME 6.8 fl (7.4-10.4); MONOCYTES % 7.5 % (2.0-8.0); NEUTROPHILS % 65.2 % (40.0-76.0); PLATELET 271 x1000/uL (130-400); RED BLOOD CELL COUNT 2.58 mill/uL (4.2-5.4)
[2018-08-31 05:38] LABS: CHLORIDE 98 mEq/L (98-107)
[2018-08-31 05:45] LABS: LDL CHOLESTEROL 59 mg/dL (5-100)
[2018-08-31 05:46] LABS: HDL CHOLESTEROL 61 mg/dL (40-59)
[2018-08-31 05:47] LABS: CREATINE KINASE 130 IU/L (26-192)
[2018-08-31 05:49] LABS: CREATINE KINASE MB FRACTION 2.3 ng/mL (0.5-3.6)
[2018-08-31] MEDS: HYDROCODONE/ACETAMINOPHEN 10/325MG TABLET PO PRN ×2 (06:03→21:24)
[2018-08-31 08:20] VITALS: BP 133/68
[2018-08-31 08:37] VITALS: BP 133/68
[2018-08-31] MEDS ORDERED: NITROGLYCERIN 0.4MG TABLET SL SL PRN (09:00)
[2018-08-31] MEDS ORDERED: CLONIDINE HCL 0.3 MG PO SCH (09:00)
[2018-08-31] MEDS ORDERED: NA PHOS,M-B/NA PHOS,DI-BA ENEMA 118ML PR PRN (09:00)
[2018-08-31] MEDS ORDERED: CYANOCOBALAMIN 1000 MCG PO SCH (09:00)
[2018-08-31] MEDS ORDERED: GUAIFENESIN/CODEINE 100-10MG/5ML UDC PO PRN (09:00)
[2018-08-31] MEDS ORDERED: MEDICATION NOT ON FORMULARY EA (Aspirin (Aspirin Ec) 81 MG) PO SCH (09:00)
[2018-08-31] MEDS: ENOXAPARIN 30MG/0.3ML SYR SUBCUT SCH (11:39)
[2018-08-31] MEDS: CYANOCOBALAMIN 1000MCG TABLET PO SCH (11:40)
[2018-08-31] MEDS: FOLIC ACID/VITAMIN B COMP W-C TABLET PO SCH (11:40)
[2018-08-31] MEDS: ASPIRIN 81MG EC TABLET PO SCH (11:40)
[2018-08-31] MEDS: AMIODARONE HCL 200 MG TABLET PO SCH ×2 (11:40→21:19)
[2018-08-31 12:00] VITALS: BP 138/77
[2018-08-31] MEDS: CLONIDINE 0.3MG TABLET PO SCH ×2 (13:54→21:20)
[2018-08-31] MEDS: HYDROCODONE/ACETAMINOPHEN 5/325MG TABLET PO PRN (13:55)
[2018-08-31] MEDS: SODIUM CHLORIDE 0.9% INJ 3ML FLUSH IVF SCH ×2 (14:00→21:20)
[2018-08-31 16:00] VITALS: BP 103/55
[2018-08-31 16:35] LABS: CREATINE KINASE MB FRACTION 2.5 ng/mL (0.5-3.6)
[2018-08-31 20:37] VITALS: BP 103/58
[2018-08-31] MEDS ORDERED: MEDICATION NOT ON FORMULARY EA (Calcium Acetate 667 MG) PO SCH (21:00)
[2018-08-31] MEDS ORDERED: MEDICATION NOT ON FORMULARY EA (Docusate Sodium 250 MG) PO SCH (21:00)
[2018-08-31] MEDS: DOCUSATE SODIUM 250MG CAPSULE PO SCH (21:19)
[2018-08-31] MEDS: CALCIUM ACETATE 667MG CAPSULE PO SCH (21:19)
[2018-09-01] VITALS: BP 112/59
[2018-09-01] MEDS: DIPHENHYDRAMINE 50MG/ML VIAL IV PRN ×3 (01:45→22:21)
[2018-09-01] MEDS: HYDROCODONE/ACETAMINOPHEN 10/325MG TABLET PO PRN ×2 (02:36→21:16)
[2018-09-01 04:00] VITALS: BP 110/56
[2018-09-01] MEDS: CLONIDINE 0.3MG TABLET PO SCH ×3 (06:00→21:14)
[2018-09-01] MEDS: SODIUM CHLORIDE 0.9% INJ 3ML FLUSH IVF SCH ×3 (06:35→21:16)
[2018-09-01 07:29] LABS: BASOPHILS % 0.9 % (0.0-2.0); EOSINOPHILS % 8.9 % (0.0-5.0); HEMATOCRIT. 27.9 % (36.0-48.0); HEMOGLOBIN. 9.2 g/dL (12.0-16.0); LYMPHOCYTES % 20.8 % (20.0-50.0); MEAN CORPUSCULAR HEMOGLOBIN 36.8 pg (28.0-32.0); MEAN CORPUSCULAR VOLUME 111.6 fL (81.0-99.0); MONOCYTES % 9.4 % (2.0-8.0); PLATELET 237 x1000/uL (130-400)
[2018-09-01 08:00] VITALS: BP 106/64
[2018-09-01] MEDS ORDERED: AZITHROMYCIN 500 MG TABLET PO SCH (09:00)
[2018-09-01] MEDS: FOLIC ACID/VITAMIN B COMP W-C TABLET PO SCH (09:09)
[2018-09-01] MEDS: ASPIRIN 81MG EC TABLET PO SCH (09:09)
[2018-09-01] MEDS: AMIODARONE HCL 200 MG TABLET PO SCH ×2 (09:10→21:16)
[2018-09-01] MEDS: CYANOCOBALAMIN 1000MCG TABLET PO SCH (09:10)
[2018-09-01] MEDS: ENOXAPARIN 30MG/0.3ML SYR SUBCUT SCH (09:12)
[2018-09-01] MEDS: IPRATROPIUM/ALBUTEROL 0.5-3(2.5)MG/3ML NEB HHN SCH ×2 (11:36→21:12)
[2018-09-01 12:00] VITALS: BP 122/52
[2018-09-01] MEDS ORDERED: ALBUTEROL (0.083%) 2.5MG/3ML NEB HHN SCH (12:00)
[2018-09-01 16:00] VITALS: BP 111/81
[2018-09-01 20:00] VITALS: BP 140/75
[2018-09-01] MEDS: CALCIUM ACETATE 667MG CAPSULE PO SCH (21:14)
[2018-09-01] MEDS: DOCUSATE SODIUM 250MG CAPSULE PO SCH (21:14)
[2018-09-02] VITALS (7 sets, daily range): BP systolic 86–147; BP diastolic 45–70
[2018-09-02] MEDS: IPRATROPIUM/ALBUTEROL 0.5-3(2.5)MG/3ML NEB HHN SCH ×3 (01:03→13:24)
[2018-09-02] MEDS: CLONIDINE 0.3MG TABLET PO SCH ×2 (05:25→12:55)
[2018-09-02] MEDS: SODIUM CHLORIDE 0.9% INJ 3ML FLUSH IVF SCH ×2 (05:25→13:27)
[2018-09-02] MEDS: DIPHENHYDRAMINE 50MG/ML VIAL IV PRN (06:00)
[2018-09-02] MEDS: HYDROCODONE/ACETAMINOPHEN 10/325MG TABLET PO PRN (06:47)
[2018-09-02] MEDS: ENOXAPARIN 30MG/0.3ML SYR SUBCUT SCH (08:51)
[2018-09-02] MEDS: CALCIUM ACETATE 667MG CAPSULE PO SCH ×2 (08:51→13:27)
[2018-09-02] MEDS: CYANOCOBALAMIN 1000MCG TABLET PO SCH (08:51)
[2018-09-02] MEDS: AMIODARONE HCL 200 MG TABLET PO SCH (08:51)
[2018-09-02] MEDS: ASPIRIN 81MG EC TABLET PO SCH (08:51)
[2018-09-02] MEDS: FOLIC ACID/VITAMIN B COMP W-C TABLET PO SCH (08:51)
[2018-09-02] MEDS ORDERED: AZITHROMYCIN 250 MG TABLET PO SCH ×2 (09:00)
[2018-09-02] MEDS ORDERED: AZIT250T MT (12:42)
[2018-09-02 14:27] LABS: PLATELET ESTIMATE NORMAL
== END 2018-09-02 17:46 | disposition home or self-care (01) | DRG 291 ==
LOC: ER 17:29 → 6WST 22:46 → EDBEDREQTM 22:48 → EDBEDREQ 22:48 → ENRESERV 08-31 07:15
PROVIDERS: ADMIT Family Medicine; ATTEND Family Medicine
PROC: 5A1D70Z Performance of Urinary Filtration, Intermittent, Less than 6 Hours Per Day (ICD-10-PCS; principal; 2018-08-31)
DX: I13.2 Hypertensive heart and chronic kidney disease with heart failure and with stage 5 chronic kidney disease, or end stage renal disease (principal); N18.6 End stage renal disease; B19.10 Unspecified viral hepatitis B without hepatic coma; I16.0 Hypertensive urgency; Z99.2 Dependence on renal dialysis; I50.9 Heart failure, unspecified; I25.10 Atherosclerotic heart disease of native coronary artery without angina pectoris; I25.2 Old myocardial infarction; E83.51 Hypocalcemia; M70.32 Other bursitis of elbow, left elbow; G89.4 Chronic pain syndrome; Z86.19 Personal history of other infectious and parasitic diseases; Z87.891 Personal history of nicotine dependence; Z90.81 Acquired absence of spleen; Z79.82 Long term (current) use of aspirin; Z79.899 Other long term (current) drug therapy; Z68.24 Body mass index [BMI] 24.0-24.9, adult; Y93.89 Activity, other specified
CPT/HCPCS: 36415; 71045; 80048; 80061; 82550; 82553; 82962; 83605; 83880; 84484; 87070; 93005; 93306; 94640; 96374; 99285; J1200; J1650; J2405; J7620

== ENCOUNTER 2018-09-25 07:39 | Inpatient (IN) | payer MEDICARE, MEDICAID ==
[~2018-09-25] VITALS: Ht 170.2 cm; Wt 67.6 kg
[~2018-09-25 07:39] MED LIST changes: -ACET-2178 PO; +AZIT250T MT; -DIPH25CA83 PO; -GUAI-735 PO; -HYDR50SY PO; -PANT40TA4 PO; -TRAZ-212 PO
[2018-09-25] MEDS ORDERED: SODIUM CHLORIDE 0.9% 500 ML IV ONE (08:00)
[2018-09-25 08:19] LABS: BASOPHILS % 2.9 % (0.0-2.0); EOSINOPHILS % 11.4 % (0.0-5.0); HEMATOCRIT. 26.6 % (36.0-48.0); HEMOGLOBIN. 8.6 g/dL (12.0-16.0); LYMPHOCYTES % 13.2 % (20.0-50.0); MEAN CORPUSCULAR HEMOGLOBIN 35.6 pg (28.0-32.0); MEAN CORPUSCULAR VOLUME 110.8 fL (81.0-99.0); MEAN PLATELET VOLUME 7.3 fl (7.4-10.4); MONOCYTES % 10.7 % (2.0-8.0); NEUTROPHILS % 61.8 % (40.0-76.0); PLATELET 202 x1000/uL (130-400)
[2018-09-25 08:26] LABS: INR 1.2; PARTIAL THROMBOPLASTIN TIME 37.2 sec (23.4-31.0); PROTHROMBIN TIME 12.7 sec (9.6-11.0)
[2018-09-25] MEDS ORDERED: BUPIVACAINE HCL/PF 0.25% (2.5MG/ML) 10ML ONE (09:25)
[2018-09-25] MEDS ORDERED: VANCOMYCIN HCL 500 MG/VIAL ONE (09:25)
[2018-09-25] MEDS ORDERED: BUPIVACAINE/EPINEPH/PF 0.25%/0.0005 10ML ONE (09:25)
[2018-09-25] MEDS ORDERED: BACITRACIN 50,000 UNITS/VIAL ONE (09:26)
[2018-09-25 09:53] LABS: PLATELET ESTIMATE NORMAL
[2018-09-25] MEDS ORDERED: ATROV IH (10:50)
[2018-09-25] MEDS ORDERED: QUET50TA21 PO (10:53)
[2018-09-25] MEDS ORDERED: BUPR150T3 PO (11:00)
[2018-09-25] MEDS ORDERED: LEVO88TA7 PO (11:00)
[2018-09-25] MEDS ORDERED: FAMO20TA8 PO (11:00)
[2018-09-25] MEDS ORDERED: DIPH25TA23 PO (11:00)
[2018-09-25] MEDS ORDERED: TRAZ-251 PO (11:00)
[2018-09-25] MEDS ORDERED: ZOLP5TAB8 PO (11:00)
[2018-09-25] MEDS ORDERED: SODIUM CHLORIDE 0.9% 1,000 ML IV ONE (11:52)
[2018-09-25] MEDS ORDERED: HYDROCODONE/ACETAMINOPHEN 10/325MG TABLET PO PRN (12:00)
[2018-09-25] MEDS ORDERED: ACETAMINOPHEN 325MG TABLET PO PRN (12:00)
[2018-09-25] MEDS ORDERED: ONDANSETRON HCL 4MG/2ML INJ IV PRN ×2 (12:00)
[2018-09-25] MEDS ORDERED: MORPHINE SULFATE 2 MG/ML CPJ (NOT FOR IM USE) IV PRN (12:00)
[2018-09-25 14:55] VITALS: BP 148/66
[2018-09-25] MEDS: MORPHINE SULFATE 4 MG/ML CPJ (NOT FOR IM USE) IV PRN ×2 (15:39→20:00)
[2018-09-25 16:00] VITALS: BP 148/66
[2018-09-25] MEDS ORDERED: IPRATROPIUM/ALBUTEROL 0.5-3(2.5)MG/3ML NEB HHN PRN (16:30)
[2018-09-25] MEDS: SEVELAMER CARBONATE 800 MG TABLET PO SCH (17:29)
[2018-09-25] MEDS: DIPHENHYDRAMINE 50MG/ML VIAL IV PRN ×2 (17:30→23:54)
[2018-09-25] MEDS: CALCIUM ACETATE 667MG CAPSULE PO SCH (17:30)
[2018-09-25 20:00] VITALS: BP 150/69
[2018-09-25] MEDS: ENOXAPARIN 30MG/0.3ML SYR SUBCUT SCH (20:01)
[2018-09-25] MEDS: CEFAZOLIN 1000MG PREMIX 50 ML IV SCH (20:01)
[2018-09-25] MEDS: TEMAZEPAM 15MG CAPSULE PO PRN (23:47)
[2018-09-25] MEDS: HYDROCODONE/ACETAMINOPHEN 10/325MG TABLET PO PRN (23:48)
[2018-09-26] VITALS: BP 144/56
[2018-09-26 04:00] VITALS: BP 135/65
[2018-09-26] MEDS: MORPHINE SULFATE 4 MG/ML CPJ (NOT FOR IM USE) IV PRN ×3 (04:38→19:24)
[2018-09-26 06:40] LABS: HEMATOCRIT. 28.6 % (36.0-48.0); HEMOGLOBIN. 9.3 g/dL (12.0-16.0); MEAN CORPUSCULAR HEMOGLOBIN 36.4 pg (28.0-32.0); MEAN CORPUSCULAR VOLUME 112.1 fL (81.0-99.0); MEAN PLATELET VOLUME 7.9 fl (7.4-10.4); PLATELET 232 x1000/uL (130-400); RED BLOOD CELL COUNT 2.55 mill/uL (4.2-5.4)
[2018-09-26] MEDS: LEVOTHYROXINE SODIUM 88MCG TABLET PO SCH (08:31)
[2018-09-26] MEDS: QUETIAPINE FUMARATE 50MG TABLET PO SCH (08:33)
[2018-09-26] MEDS: SEVELAMER CARBONATE 800 MG TABLET PO SCH ×3 (08:34→18:44)
[2018-09-26] MEDS: CALCIUM ACETATE 667MG CAPSULE PO SCH ×2 (08:34→18:44)
[2018-09-26 08:59] VITALS: BP 159/65
[2018-09-26] MEDS: DIPHENHYDRAMINE 50MG/ML VIAL IV PRN ×2 (09:58→20:35)
[2018-09-26 12:41] VITALS: BP 150/63
[2018-09-26 17:25] VITALS: BP 150/63
[2018-09-26 20:00] VITALS: BP 137/69
[2018-09-26] MEDS: ENOXAPARIN 30MG/0.3ML SYR SUBCUT SCH (20:35)
[2018-09-26] MEDS: CEFAZOLIN 1000MG PREMIX 50 ML IV SCH (20:35)
[2018-09-27] VITALS (7 sets, daily range): BP systolic 117–179; BP diastolic 53–91
[2018-09-27] MEDS: MORPHINE SULFATE 4 MG/ML CPJ (NOT FOR IM USE) IV PRN (01:25)
[2018-09-27] MEDS: TEMAZEPAM 15MG CAPSULE PO PRN (02:43)
[2018-09-27 04:57] LABS: PLATELET ESTIMATE NORMAL
[2018-09-27] MEDS: LEVOTHYROXINE SODIUM 88MCG TABLET PO SCH (06:24)
[2018-09-27] MEDS: HYDROCODONE/ACETAMINOPHEN 10/325MG TABLET PO PRN ×3 (08:50→23:17)
[2018-09-27] MEDS: SEVELAMER CARBONATE 800 MG TABLET PO SCH ×3 (08:50→19:08)
[2018-09-27] MEDS: CALCIUM ACETATE 667MG CAPSULE PO SCH ×2 (08:51→13:31)
[2018-09-27] MEDS: QUETIAPINE FUMARATE 50MG TABLET PO SCH (08:51)
[2018-09-27] MEDS: CEFAZOLIN 1000MG PREMIX 50 ML IV SCH (20:00)
[2018-09-28] MEDS ORDERED: DIPHENHYDRAMINE 25MG CAPSULE PO PRN (01:00)
[2018-09-28] MEDS ORDERED: CLONIDINE 0.1MG TABLET PO PRN (01:00)
[2018-09-28] MEDS ORDERED: DIPHENHYDRAMINE 50MG CAPSULE PO SCH (01:00)
[2018-09-28 04:00] VITALS: BP 169/73
[2018-09-28] MEDS: HYDROCODONE/ACETAMINOPHEN 10/325MG TABLET PO PRN ×2 (04:55→08:49)
[2018-09-28] MEDS: LEVOTHYROXINE SODIUM 88MCG TABLET PO SCH (06:53)
[2018-09-28 08:00] VITALS: BP 151/67
[2018-09-28 08:49] VITALS: BP 151/67
[2018-09-28] MEDS: SEVELAMER CARBONATE 800 MG TABLET PO SCH (08:49)
[2018-09-28] MEDS: CALCIUM ACETATE 667MG CAPSULE PO SCH (08:50)
[2018-09-28] MEDS: QUETIAPINE FUMARATE 50MG TABLET PO SCH (08:50)
== END 2018-09-28 10:55 | disposition home or self-care (01) | DRG 500 ==
LOC: OR 07:39 → 8WST 07:40
PROVIDERS: ADMIT Orthopaedic Surgery; ATTEND Orthopaedic Surgery
PROC: 5A1D70Z Performance of Urinary Filtration, Intermittent, Less than 6 Hours Per Day (ICD-10-PCS; principal; 2018-09-25)
PROC: 0MT40ZZ Resection of Left Elbow Bursa and Ligament, Open Approach (ICD-10-PCS; 2018-09-25)
DX: M70.22 Olecranon bursitis, left elbow (principal); N18.6 End stage renal disease; I13.2 Hypertensive heart and chronic kidney disease with heart failure and with stage 5 chronic kidney disease, or end stage renal disease; N25.81 Secondary hyperparathyroidism of renal origin; D64.9 Anemia, unspecified; F17.210 Nicotine dependence, cigarettes, uncomplicated; I25.10 Atherosclerotic heart disease of native coronary artery without angina pectoris; M19.90 Unspecified osteoarthritis, unspecified site; I50.9 Heart failure, unspecified; M46.42 Discitis, unspecified, cervical region; Z86.19 Personal history of other infectious and parasitic diseases; Z90.81 Acquired absence of spleen; Z91.19 Patient's noncompliance with other medical treatment and regimen; I25.2 Old myocardial infarction; Z99.2 Dependence on renal dialysis; Y93.89 Activity, other specified; Z79.899 Other long term (current) drug therapy; Z79.82 Long term (current) use of aspirin
CPT/HCPCS: 36415; 80048; 87070; 87075; 88304; 97166; C1893; J0171; J0330; J0690; J1200; J1650; J2250; J2270; J2370; J2405; J2704; J2710; J2765; J3010; J3370; J3490; J7040; Q0163

== ENCOUNTER 2019-01-17 17:32 | Inpatient (IN) | payer MEDICARE, MEDICAID ==
[~2019-01-17] VITALS: Ht 175.3 cm; Wt 80.4 kg
[~2019-01-17 17:32] MED LIST changes: +AMLO5TAB4 MT; -ASPI-1158 PO; +ATROV IH; -AZIT250T MT; +BUPR150T3 PO; +CYAN-50 PO; -CYAN10009 PO; +DIPH25TA23 PO; +FAMO20TA8 PO; +QUET50TA21 PO; +TRAZ-251 PO; +ZOLP5TAB8 PO
[2019-01-17 19:27] LABS: BASOPHILS % 0.7 % (0.0-2.0); EOSINOPHILS % 7.2 % (0.0-5.0); HEMATOCRIT. 35.9 % (36.0-48.0); HEMOGLOBIN. 11.2 g/dL (12.0-16.0); LYMPHOCYTES % 8.8 % (20.0-50.0); MEAN CORPUSCULAR HEMOGLOBIN 34.2 pg (28.0-32.0); MEAN CORPUSCULAR VOLUME 109.3 fL (81.0-99.0); MEAN PLATELET VOLUME 7.8 fl (7.4-10.4); MONOCYTES % 5.7 % (2.0-8.0); NEUTROPHILS % 77.6 % (40.0-76.0); PLATELET 180 x1000/uL (130-400); RED BLOOD CELL COUNT 3.29 mill/uL (4.2-5.4); RED CELL DISTRIBUTION WIDTH 20.9 % (11.6-14.6)
[2019-01-17 19:28] LABS: CHLORIDE 107 mEq/L (98-107)
[2019-01-17] MEDS ORDERED: ACETAMINOPHEN 325MG TABLET PO ONE (20:00)
[2019-01-17] MEDS ORDERED: MORPHINE SULFATE 4 MG/ML CPJ (NOT FOR IM USE) IV ONE (20:15)
[2019-01-17] MEDS ORDERED: DEXTROSE 50% WATER 50ML SYRINGE IV SCH (22:30)
[2019-01-17] MEDS ORDERED: INSULIN REGULAR (HUMULIN R) 300UNITS/3ML IV SCH (22:30)
[2019-01-17] MEDS ORDERED: SODIUM BICARBONATE 8.4% 1 MEQ/ML 50ML SYR IV SCH (22:30)
[2019-01-18 02:00] VITALS: BP 142/75
[2019-01-18 04:00] VITALS: BP 150/81
[2019-01-18] MEDS ORDERED: HYDROCODONE/ACETAMINOPHEN 5/325MG TABLET PO PRN (05:45)
[2019-01-18] MEDS ORDERED: ACETAMINOPHEN 325MG TABLET PO PRN (05:45)
[2019-01-18] MEDS ORDERED: MAGNESIUM/ALUMINUM HYDROXIDE/SIMETHICONE 30ML UDC PO PRN (05:45)
[2019-01-18] MEDS ORDERED: ONDANSETRON HCL 4MG/2ML INJ IV PRN (05:45)
[2019-01-18] MEDS ORDERED: DOCUSATE SODIUM 100MG CAPSULE PO PRN (05:45)
[2019-01-18] MEDS ORDERED: GUAIFENESIN 200MG/10ML SUGAR FREE UDC PO PRN (05:45)
[2019-01-18] MEDS ORDERED: IPRATROPIUM/ALBUTEROL 0.5-3(2.5)MG/3ML NEB NEB PRN (05:45)
[2019-01-18] MEDS: BLOOD SUGAR DIAGNOSTIC STRIP TEST SCH ×2 (06:15→08:34)
[2019-01-18 08:00] VITALS: BP 137/87
[2019-01-18] MEDS ORDERED: VANCOMYCIN 1500MG in DEXTROSE 5% WATER 250ML IV NR (08:00)
[2019-01-18] MEDS: DEXT 5%/0.45% NACL 1000ML 1,000 ML IV SCH (08:10)
[2019-01-18] MEDS ORDERED: NA PHOS,M-B/NA PHOS,DI-BA ENEMA 118ML PR PRN (09:00)
[2019-01-18] MEDS ORDERED: ENOXAPARIN 40MG/0.4ML SYR SUBCUT SCH (09:00)
[2019-01-18] MEDS: ASPIRIN 81MG EC TABLET PO SCH (09:02)
[2019-01-18] MEDS ORDERED: DEXTROSE 50% WATER 50ML SYRINGE IV NR (10:00)
[2019-01-18 12:00] VITALS: BP 153/92
[2019-01-18] MEDS: PIPERACILLIN/TAZOBACTAM 2.25 G in DEXTROSE 5% WATER 50 ML IV SCH ×2 (12:45→17:32)
[2019-01-18 16:00] VITALS: BP 108/50
[2019-01-18 20:00] VITALS: BP 137/63
[2019-01-18] MEDS: DIPHENHYDRAMINE 50MG/ML VIAL IV PRN (22:04)
[2019-01-19] VITALS: BP 118/57
[2019-01-19] MEDS: PIPERACILLIN/TAZOBACTAM 2.25 G in DEXTROSE 5% WATER 50 ML IV SCH ×3 (00:21→15:50)
[2019-01-19] MEDS: LORAZEPAM 2MG/ML CPJ IV PRN (02:18)
[2019-01-19] MEDS: DEXT 5%/0.45% NACL 1000ML 1,000 ML IV SCH ×2 (02:21→22:18)
[2019-01-19 06:00] VITALS: BP 142/79
[2019-01-19 08:00] VITALS: BP 152/72
[2019-01-19] MEDS: ASPIRIN 81MG EC TABLET PO SCH (09:17)
[2019-01-19] MEDS: ENOXAPARIN 30MG/0.3ML SYR SUBCUT SCH (09:17)
[2019-01-19] MEDS: MORPHINE SULFATE 2 MG/ML CPJ (NOT FOR IM USE) IV PRN ×2 (09:55→18:42)
[2019-01-19 11:11] LABS: BASOPHILS % 0.7 % (0.0-2.0); EOSINOPHILS % 7.3 % (0.0-5.0); HEMATOCRIT. 34.2 % (36.0-48.0); HEMOGLOBIN. 10.8 g/dL (12.0-16.0); LYMPHOCYTES % 11.6 % (20.0-50.0); MEAN CORPUSCULAR HEMOGLOBIN 35.3 pg (28.0-32.0); MEAN CORPUSCULAR VOLUME 112.2 fL (81.0-99.0); MONOCYTES % 8.7 % (2.0-8.0); NEUTROPHILS % 71.7 % (40.0-76.0); PLATELET 175 x1000/uL (130-400); RED BLOOD CELL COUNT 3.05 mill/uL (4.2-5.4); RED CELL DISTRIBUTION WIDTH 20.9 % (11.6-14.6)
[2019-01-19 11:19] LABS: CHLORIDE 109 mEq/L (98-107)
[2019-01-19 11:29] LABS: HDL CHOLESTEROL 77 mg/dL (40-59); LDL CHOLESTEROL 81 mg/dL (5-100)
[2019-01-19 11:30] LABS: T4 FREE 0.66 ng/dL (0.76-1.46)
[2019-01-19 12:00] VITALS: BP 163/86
[2019-01-19 16:00] VITALS: BP 158/83
[2019-01-19] MEDS ORDERED: VANCOMYCIN 1 G PREMIX 200 ML IV SCH (16:00)
[2019-01-19 16:19] LABS: PLATELET ESTIMATE NORMAL
[2019-01-19 17:02] LABS: CREATINE KINASE MB FRACTION 2.8 ng/mL (0.5-3.6)
[2019-01-19 20:00] VITALS: BP 157/75
[2019-01-20] VITALS: BP 161/89
[2019-01-20] MEDS: PIPERACILLIN/TAZOBACTAM 2.25 G in DEXTROSE 5% WATER 50 ML IV SCH ×4 (00:13→23:08)
[2019-01-20] MEDS: CLONIDINE 0.1MG TABLET PO PRN ×2 (00:16→10:22)
[2019-01-20 00:58] LABS: CREATINE KINASE MB FRACTION 2.5 ng/mL (0.5-3.6)
[2019-01-20 04:00] VITALS: BP 163/83
[2019-01-20 08:00] VITALS: BP 160/77
[2019-01-20] MEDS: ENOXAPARIN 30MG/0.3ML SYR SUBCUT SCH (09:00)
[2019-01-20] MEDS: ASPIRIN 81MG EC TABLET PO SCH (09:00)
[2019-01-20] MEDS ORDERED: LIDOCAINE HCL 1% 20ML VIAL (Pyxis) INJ ONE (10:16)
[2019-01-20] MEDS ORDERED: SODIUM BICARBONATE 4% (2.4MEQ) 5ML VIAL IV ONE (10:16)
[2019-01-20] MEDS: LEVOTHYROXINE SODIUM 50MCG TABLET PO SCH (10:17)
[2019-01-20 12:00] VITALS: BP 139/67
[2019-01-20] MEDS: SILDENAFIL CITRATE 20MG TABLET PO SCH ×2 (15:09→21:36)
[2019-01-20 16:00] VITALS: BP 144/77
[2019-01-20] MEDS: DEXT 5%/0.45% NACL 1000ML 1,000 ML IV SCH (18:15)
[2019-01-20] MEDS: MORPHINE SULFATE 2 MG/ML CPJ (NOT FOR IM USE) IV PRN ×2 (18:20→22:52)
[2019-01-20 20:00] VITALS: BP 176/88
[2019-01-20] MEDS: BLOOD SUGAR DIAGNOSTIC STRIP TEST SCH (21:35)
[2019-01-20] MEDS: INSULIN LISPRO 100 UNITS/ML SUBCUT SCH (21:36)
[2019-01-21] VITALS (7 sets, daily range): BP systolic 120–209; BP diastolic 42–101
[2019-01-21] MEDS: LORAZEPAM 2MG/ML CPJ IV PRN ×4 (00:07→17:12)
[2019-01-21] MEDS: CLONIDINE 0.1MG TABLET PO PRN (01:15)
[2019-01-21] MEDS: SILDENAFIL CITRATE 20MG TABLET PO SCH ×3 (06:00→22:00)
[2019-01-21] MEDS: DEXTROSE 50% WATER 50ML SYRINGE IV PRN ×2 (06:57→19:01)
[2019-01-21] MEDS: BLOOD SUGAR DIAGNOSTIC STRIP TEST SCH ×4 (06:57→21:50)
[2019-01-21] MEDS: INSULIN LISPRO 100 UNITS/ML SUBCUT SCH ×4 (07:50→21:30)
[2019-01-21] MEDS: PIPERACILLIN/TAZOBACTAM 2.25 G in DEXTROSE 5% WATER 50 ML IV SCH ×3 (08:00→23:24)
[2019-01-21] MEDS: ASPIRIN 81MG EC TABLET PO SCH (09:00)
[2019-01-21] MEDS: ENOXAPARIN 30MG/0.3ML SYR SUBCUT SCH (09:02)
[2019-01-21] MEDS: LEVOTHYROXINE SODIUM 50MCG TABLET PO SCH (10:36)
[2019-01-21 12:23] LABS: BG BASE EXCESS -1.7 mmol/L (-2.0-2.0); BG CARBOXYHEMOGLOBIN 1.7 % (0.5-1.5); BG DEOXYHEMOGLOBIN 48.3 % (0.0-5.0); BG FRACTION INSPIRED OXYGEN 21; BG HCO3 ACT 26.6 mmol/L (22.0-26.0); BG METHEMOGLOBIN 0.2 % (0.0-1.5); BG OXYGEN SATURATION 50.8 % (92.0-98.5); BG OXYHEMOGLOBIN 49.8 % (94.0-97.0); BG PCO2 63.6 mmHg (35.0-45.0); BG PO2 < 30.3 mmHg (75.0-100.0); BG SAMPLE SITE LEFT RADIAL; BG TOTAL HEMOGLOBIN 11.7 g/dL (12.0-18.0); BG VENT MODE ROOM AIR
[2019-01-21] MEDS ORDERED: IPRATROPIUM/ALBUTEROL 0.5-3(2.5)MG/3ML NEB HHN NR (13:00)
[2019-01-21 13:32] LABS: HEMATOCRIT 33.7 % (36.0-48.0); HEMOGLOBIN 10.5 g/dL (12.0-16.0); MEAN CORPUSCULAR HEMOGLOBIN 34.4 pg (28.0-32.0); MEAN CORPUSCULAR VOLUME 110.5 fL (81.0-99.0); PLATELET 159 x1000/uL (130-400); RED BLOOD CELL COUNT 3.05 mill/uL (4.2-5.4); RED CELL DISTRIBUTION WIDTH 19.1 % (11.6-14.6)
[2019-01-21 14:53] LABS: BG BASE EXCESS -2.9 mmol/L (-2.0-2.0); BG CARBOXYHEMOGLOBIN 0.7 % (0.5-1.5); BG DEOXYHEMOGLOBIN 1.4 % (0.0-5.0); BG FRACTION INSPIRED OXYGEN 100; BG HCO3 ACT 28.5 mmol/L (22.0-26.0); BG METHEMOGLOBIN 0.4 % (0.0-1.5); BG OXYGEN SATURATION 98.6 % (92.0-98.5); BG OXYHEMOGLOBIN 97.5 % (94.0-97.0); BG PCO2 92.3 mmHg (35.0-45.0); BG PH 7.107 (7.350-7.450); BG PO2 174.3 mmHg (75.0-100.0); BG SAMPLE SITE LEFT RADIAL; BG TOTAL HEMOGLOBIN 11.5 g/dL (12.0-18.0); BG VENT MODE MASK - NRB
[2019-01-21] MEDS: IPRATROPIUM/ALBUTEROL 0.5-3(2.5)MG/3ML NEB HHN SCH ×2 (15:56→21:43)
[2019-01-21 17:55] LABS: BG BASE EXCESS -2.5 mmol/L (-2.0-2.0); BG BILEVEL POS AIRWAY PRESSURE 20/5; BG CARBOXYHEMOGLOBIN 1.2 % (0.5-1.5); BG DEOXYHEMOGLOBIN 10.5 % (0.0-5.0); BG FRACTION INSPIRED OXYGEN 70; BG HCO3 ACT 26.3 mmol/L (22.0-26.0); BG OXYGEN SATURATION 89.4 % (92.0-98.5); BG OXYHEMOGLOBIN 88.3 % (94.0-97.0); BG PCO2 66.3 mmHg (35.0-45.0); BG PH 7.217 (7.350-7.450); BG PO2 65.5 mmHg (75.0-100.0); BG SAMPLE SITE LEFT BRACHIAL; BG TOTAL HEMOGLOBIN 11.9 g/dL (12.0-18.0); BG VENT MODE MASK - BIPAP; BG VENT RATE 20 set
[2019-01-21] MEDS ORDERED: VANCOMYCIN 750 MG PREMIX 150 ML IV SCH (20:00)
[2019-01-21] MEDS: HALOPERIDOL LACTATE 5MG/ML VIAL IM PRN (22:08)
[2019-01-21] MEDS: DEXT 5%/0.45% NACL 1000ML 1,000 ML IV SCH (22:45)
[2019-01-22] VITALS (51 sets, daily range): BP systolic 90–165; BP diastolic 42–134
[2019-01-22] MEDS: LORAZEPAM 2MG/ML CPJ IV PRN ×2 (00:29→06:01)
[2019-01-22] MEDS: IPRATROPIUM/ALBUTEROL 0.5-3(2.5)MG/3ML NEB HHN SCH ×5 (00:52→20:15)
[2019-01-22] MEDS: DIPHENHYDRAMINE 50MG/ML VIAL IV PRN (02:59)
[2019-01-22] MEDS: SILDENAFIL CITRATE 20MG TABLET PO SCH ×3 (06:00→22:44)
[2019-01-22 07:03] LABS: BG BASE EXCESS -2.4 mmol/L (-2.0-2.0); BG BILEVEL POS AIRWAY PRESSURE 20/5; BG CARBOXYHEMOGLOBIN 0.4 % (0.5-1.5); BG DEOXYHEMOGLOBIN 4.8 % (0.0-5.0); BG FRACTION INSPIRED OXYGEN 40; BG HCO3 ACT 26.3 mmol/L (22.0-26.0); BG METHEMOGLOBIN 0.2 % (0.0-1.5); BG OXYGEN SATURATION 95.2 % (92.0-98.5); BG OXYHEMOGLOBIN 94.6 % (94.0-97.0); BG PH 7.211 (7.350-7.450); BG PO2 91.6 mmHg (75.0-100.0); BG SAMPLE SITE LEFT RADIAL; BG TOTAL HEMOGLOBIN 10.2 g/dL (12.0-18.0); BG VENT MODE MASK - BIPAP
[2019-01-22] MEDS: BLOOD SUGAR DIAGNOSTIC STRIP TEST SCH ×4 (07:30→20:23)
[2019-01-22] MEDS: INSULIN LISPRO 100 UNITS/ML SUBCUT SCH ×4 (08:00→20:23)
[2019-01-22] MEDS ORDERED: VECURONIUM BROMIDE 10 MG/VIAL IV ONE (08:53)
[2019-01-22] MEDS ORDERED: ETOMIDATE 2MG/ML 10ML VIAL IV ONE (08:53)
[2019-01-22] MEDS: PIPERACILLIN/TAZOBACTAM 2.25 G in DEXTROSE 5% WATER 50 ML IV SCH ×3 (09:00→23:44)
[2019-01-22] MEDS: ENOXAPARIN 30MG/0.3ML SYR SUBCUT SCH (09:00)
[2019-01-22] MEDS: ASPIRIN 81MG EC TABLET PO SCH (09:00)
[2019-01-22 09:27] LABS: BG BASE EXCESS -0.6 mmol/L (-2.0-2.0); BG CARBOXYHEMOGLOBIN 0.8 % (0.5-1.5); BG FRACTION INSPIRED OXYGEN 60; BG HCO3 ACT 25.5 mmol/L (22.0-26.0); BG METHEMOGLOBIN 0.3 % (0.0-1.5); BG OXYHEMOGLOBIN 95.9 % (94.0-97.0); BG PCO2 48.2 mmHg (35.0-45.0); BG PH 7.342 (7.350-7.450); BG PO2 103.1 mmHg (75.0-100.0); BG SAMPLE SITE LEFT FEMORAL; BG TIDAL VOLUME(mL) 550 mL; BG TOTAL HEMOGLOBIN 11.6 g/dL (12.0-18.0); BG VENT MODE VENT - A/C; BG VENT RATE 18 set
[2019-01-22] MEDS ORDERED: NOREPINEPHRINE 16 MG in DEXT 5% WATER 234 ML IV PRN (09:30)
[2019-01-22] MEDS: PROPOFOL 10MG/ML 100ML 100 ML IV PRN ×3 (09:34→20:49)
[2019-01-22] MEDS: LEVOTHYROXINE SODIUM 100 MCG/ VIAL IV SCH (10:34)
[2019-01-22] MEDS: DEXT 5%/0.45% NACL 1000ML 1,000 ML IV SCH (10:35)
[2019-01-22] MEDS: FAMOTIDINE 20MG/2ML VIAL IV SCH (10:35)
[2019-01-22] MEDS: HALOPERIDOL LACTATE 5MG/ML VIAL IM PRN (13:13)
[2019-01-22] MEDS: DEXTROSE 50% WATER 50ML SYRINGE IV PRN ×2 (17:14→20:23)
[2019-01-23] VITALS (88 sets, daily range): BP systolic 91–147; BP diastolic 37–116
[2019-01-23] MEDS: IPRATROPIUM/ALBUTEROL 0.5-3(2.5)MG/3ML NEB HHN SCH ×6 (00:26→19:54)
[2019-01-23] MEDS: PROPOFOL 10MG/ML 100ML 100 ML IV PRN ×6 (01:43→22:35)
[2019-01-23] MEDS: BLOOD SUGAR DIAGNOSTIC STRIP TEST SCH ×4 (05:30→21:00)
[2019-01-23] MEDS: SILDENAFIL CITRATE 20MG TABLET PO SCH ×3 (05:33→22:36)
[2019-01-23] MEDS: INSULIN LISPRO 100 UNITS/ML SUBCUT SCH ×4 (05:43→21:00)
[2019-01-23 07:30] LABS: BG BASE EXCESS -0.6 mmol/L (-2.0-2.0); BG CARBOXYHEMOGLOBIN 0.1 % (0.5-1.5); BG DEOXYHEMOGLOBIN 4.2 % (0.0-5.0); BG FRACTION INSPIRED OXYGEN 40; BG METHEMOGLOBIN 0.3 % (0.0-1.5); BG OXYGEN SATURATION 95.8 % (92.0-98.5); BG OXYHEMOGLOBIN 95.4 % (94.0-97.0); BG PCO2 33.6 mmHg (35.0-45.0); BG PH 7.453 (7.350-7.450); BG PO2 84.9 mmHg (75.0-100.0); BG SAMPLE SITE LEFT RADIAL; BG TIDAL VOLUME(mL) 550 mL; BG TOTAL HEMOGLOBIN 9.6 g/dL (12.0-18.0); BG VENT MODE VENT - A/C; BG VENT RATE 16 set
[2019-01-23] MEDS: PIPERACILLIN/TAZOBACTAM 2.25 G in DEXTROSE 5% WATER 50 ML IV SCH ×3 (07:59→23:30)
[2019-01-23] MEDS: ENOXAPARIN 30MG/0.3ML SYR SUBCUT SCH (08:19)
[2019-01-23] MEDS: ASPIRIN 81MG EC TABLET PO SCH (08:19)
[2019-01-23] MEDS: FAMOTIDINE 20MG/2ML VIAL IV SCH (08:19)
[2019-01-23] MEDS: LEVOTHYROXINE SODIUM 100 MCG/ VIAL IV SCH (09:59)
[2019-01-23] MEDS: METHYLPREDNISOLONE SOD SUCC 40 MG/ML VIAL IV SCH ×2 (09:59→17:34)
[2019-01-23 12:51] LABS: BASOPHILS % 1.3 % (0.0-2.0); EOSINOPHILS % 8.3 % (0.0-5.0); HEMATOCRIT. 27.7 % (36.0-48.0); LYMPHOCYTES % 17.1 % (20.0-50.0); MEAN CORPUSCULAR HEMOGLOBIN 34.5 pg (28.0-32.0); MEAN CORPUSCULAR VOLUME 106.3 fL (81.0-99.0); MEAN PLATELET VOLUME 8.5 fl (7.4-10.4); MONOCYTES % 7.9 % (2.0-8.0); NEUTROPHILS % 65.4 % (40.0-76.0); PLATELET 108 x1000/uL (130-400); RED CELL DISTRIBUTION WIDTH 18.8 % (11.6-14.6)
[2019-01-24] VITALS (94 sets, daily range): BP systolic 103–146; BP diastolic 37–95
[2019-01-24] MEDS: IPRATROPIUM/ALBUTEROL 0.5-3(2.5)MG/3ML NEB HHN SCH ×6 (00:02→20:40)
[2019-01-24] MEDS: METHYLPREDNISOLONE SOD SUCC 40 MG/ML VIAL IV SCH ×3 (01:50→18:45)
[2019-01-24] MEDS: PROPOFOL 10MG/ML 100ML 100 ML IV PRN ×5 (01:51→21:11)
[2019-01-24] MEDS: SILDENAFIL CITRATE 20MG TABLET PO SCH ×3 (05:24→22:09)
[2019-01-24] MEDS: INSULIN LISPRO 100 UNITS/ML SUBCUT SCH ×4 (06:33→21:00)
[2019-01-24] MEDS: BLOOD SUGAR DIAGNOSTIC STRIP TEST SCH ×4 (06:33→21:08)
[2019-01-24 07:57] LABS: BG BASE EXCESS 2.5 mmol/L (-2.0-2.0); BG CARBOXYHEMOGLOBIN 0.3 % (0.5-1.5); BG DEOXYHEMOGLOBIN 1.6 % (0.0-5.0); BG FRACTION INSPIRED OXYGEN 60; BG HCO3 ACT 26.8 mmol/L (22.0-26.0); BG METHEMOGLOBIN 0.3 % (0.0-1.5); BG OXYGEN SATURATION 98.4 % (92.0-98.5); BG OXYHEMOGLOBIN 97.8 % (94.0-97.0); BG PCO2 40.7 mmHg (35.0-45.0); BG PH 7.437 (7.350-7.450); BG PO2 119.8 mmHg (75.0-100.0); BG SAMPLE SITE LEFT RADIAL; BG TIDAL VOLUME(mL) 500 mL; BG TOTAL HEMOGLOBIN 10.2 g/dL (12.0-18.0); BG VENT MODE VENT - A/C; BG VENT RATE 14 set
[2019-01-24] MEDS: PIPERACILLIN/TAZOBACTAM 2.25 G in DEXTROSE 5% WATER 50 ML IV SCH ×2 (08:07→16:59)
[2019-01-24] MEDS: ASPIRIN 81MG EC TABLET PO SCH (09:09)
[2019-01-24] MEDS: FAMOTIDINE 20MG/2ML VIAL IV SCH (09:09)
[2019-01-24] MEDS: ENOXAPARIN 30MG/0.3ML SYR SUBCUT SCH (09:11)
[2019-01-24 09:26] LABS: HEMATOCRIT. 29.6 % (36.0-48.0); HEMOGLOBIN. 10.2 g/dL (12.0-16.0); MEAN CORPUSCULAR HEMOGLOBIN 35.8 pg (28.0-32.0); MEAN CORPUSCULAR VOLUME 103.9 fL (81.0-99.0); MEAN PLATELET VOLUME 7.8 fl (7.4-10.4); PLATELET 130 x1000/uL (130-400); RED BLOOD CELL COUNT 2.85 mill/uL (4.2-5.4); RED CELL DISTRIBUTION WIDTH 18.8 % (11.6-14.6)
[2019-01-24 09:51] LABS: PLATELET ESTIMATE NORMAL
[2019-01-24] MEDS: LEVOTHYROXINE SODIUM 100 MCG/ VIAL IV SCH (10:35)
[2019-01-24] MEDS ORDERED: VANCOMYCIN 750 MG PREMIX 150 ML IV NR (18:00)
[2019-01-25] VITALS (93 sets, daily range): BP systolic 90–121; BP diastolic 34–89
[2019-01-25] MEDS: PIPERACILLIN/TAZOBACTAM 2.25 G in DEXTROSE 5% WATER 50 ML IV SCH ×2 (00:03→08:45)
[2019-01-25] MEDS: IPRATROPIUM/ALBUTEROL 0.5-3(2.5)MG/3ML NEB HHN SCH ×6 (00:39→20:13)
[2019-01-25] MEDS: PROPOFOL 10MG/ML 100ML 100 ML IV PRN ×5 (01:30→21:54)
[2019-01-25] MEDS: METHYLPREDNISOLONE SOD SUCC 40 MG/ML VIAL IV SCH ×3 (01:30→18:48)
[2019-01-25 05:30] LABS: HEMATOCRIT. 27.9 % (36.0-48.0); HEMOGLOBIN. 9.3 g/dL (12.0-16.0); MEAN CORPUSCULAR HEMOGLOBIN 34.5 pg (28.0-32.0); MEAN CORPUSCULAR VOLUME 103.6 fL (81.0-99.0); MEAN PLATELET VOLUME 7.9 fl (7.4-10.4); PLATELET 151 x1000/uL (130-400); RED CELL DISTRIBUTION WIDTH 18.9 % (11.6-14.6)
[2019-01-25] MEDS: SILDENAFIL CITRATE 20MG TABLET PO SCH ×3 (05:43→21:51)
[2019-01-25] MEDS: BLOOD SUGAR DIAGNOSTIC STRIP TEST SCH ×4 (05:45→21:51)
[2019-01-25] MEDS: INSULIN LISPRO 100 UNITS/ML SUBCUT SCH ×4 (05:45→21:00)
[2019-01-25 08:37] LABS: BG BASE EXCESS 0.5 mmol/L (-2.0-2.0); BG CARBOXYHEMOGLOBIN 0.3 % (0.5-1.5); BG DEOXYHEMOGLOBIN 1.8 % (0.0-5.0); BG FRACTION INSPIRED OXYGEN 50; BG HCO3 ACT 24.5 mmol/L (22.0-26.0); BG METHEMOGLOBIN 0.4 % (0.0-1.5); BG OXYGEN SATURATION 98.2 % (92.0-98.5); BG OXYHEMOGLOBIN 97.5 % (94.0-97.0); BG PCO2 37.3 mmHg (35.0-45.0); BG PH 7.436 (7.350-7.450); BG PO2 137.5 mmHg (75.0-100.0); BG SAMPLE SITE LEFT RADIAL; BG TIDAL VOLUME(mL) 500 mL; BG TOTAL HEMOGLOBIN 10.2 g/dL (12.0-18.0); BG VENT MODE VENT - A/C; BG VENT RATE 14 set
[2019-01-25 08:45] LABS: PLATELET ESTIMATE NORMAL
[2019-01-25] MEDS: FAMOTIDINE 20MG/2ML VIAL IV SCH (08:53)
[2019-01-25] MEDS: ENOXAPARIN 30MG/0.3ML SYR SUBCUT SCH (08:53)
[2019-01-25] MEDS: ASPIRIN 81MG EC TABLET PO SCH (08:53)
[2019-01-25] MEDS ORDERED: HYDRALAZINE 20MG/ML VIAL IV PRN (09:00)
[2019-01-25] MEDS ORDERED: FAMOTIDINE 20MG/2ML VIAL IV SCH (09:00)
[2019-01-25] MEDS: LEVOTHYROXINE SODIUM 100 MCG/ VIAL IV SCH (10:44)
[2019-01-26] VITALS (96 sets, daily range): BP systolic 76–143; BP diastolic 35–104
[2019-01-26] MEDS: IPRATROPIUM/ALBUTEROL 0.5-3(2.5)MG/3ML NEB HHN SCH ×6 (00:54→20:09)
[2019-01-26] MEDS: METHYLPREDNISOLONE SOD SUCC 40 MG/ML VIAL IV SCH ×2 (02:32→16:51)
[2019-01-26] MEDS: PROPOFOL 10MG/ML 100ML 100 ML IV PRN ×3 (05:17→20:14)
[2019-01-26 05:29] LABS: BASOPHILS % 0.6 % (0.0-2.0); HEMATOCRIT. 28.6 % (36.0-48.0); HEMOGLOBIN. 9.6 g/dL (12.0-16.0); LYMPHOCYTES % 9.5 % (20.0-50.0); MEAN CORPUSCULAR HEMOGLOBIN 34.6 pg (28.0-32.0); MEAN CORPUSCULAR VOLUME 103.1 fL (81.0-99.0); MEAN PLATELET VOLUME 7.6 fl (7.4-10.4); MONOCYTES % 5.5 % (2.0-8.0); NEUTROPHILS % 84.4 % (40.0-76.0); PLATELET 175 x1000/uL (130-400); RED BLOOD CELL COUNT 2.77 mill/uL (4.2-5.4); RED CELL DISTRIBUTION WIDTH 18.5 % (11.6-14.6)
[2019-01-26 05:37] LABS: INR 1.1; PARTIAL THROMBOPLASTIN TIME 33.6 sec (23.4-31.0); PROTHROMBIN TIME 11.7 sec (9.6-11.0)
[2019-01-26] MEDS: BLOOD SUGAR DIAGNOSTIC STRIP TEST SCH ×4 (06:48→21:04)
[2019-01-26] MEDS: INSULIN LISPRO 100 UNITS/ML SUBCUT SCH ×4 (06:49→21:00)
[2019-01-26] MEDS: SILDENAFIL CITRATE 20MG TABLET PO SCH ×3 (06:51→21:47)
[2019-01-26 09:21] LABS: BG BASE EXCESS 3.1 mmol/L (-2.0-2.0); BG CARBOXYHEMOGLOBIN 0.3 % (0.5-1.5); BG DEOXYHEMOGLOBIN 8.7 % (0.0-5.0); BG FRACTION INSPIRED OXYGEN 40; BG HCO3 ACT 27.2 mmol/L (22.0-26.0); BG METHEMOGLOBIN 0.3 % (0.0-1.5); BG OXYGEN SATURATION 91.2 % (92.0-98.5); BG OXYHEMOGLOBIN 90.7 % (94.0-97.0); BG PCO2 39.8 mmHg (35.0-45.0); BG PH 7.453 (7.350-7.450); BG PO2 66.1 mmHg (75.0-100.0); BG SAMPLE SITE LEFT RADIAL; BG TIDAL VOLUME(mL) 500 mL; BG TOTAL HEMOGLOBIN 9.6 g/dL (12.0-18.0); BG VENT MODE VENT - A/C; BG VENT RATE 14 set
[2019-01-26] MEDS ORDERED: LEVOTHYROXINE SODIUM 100 MCG/ VIAL IV SCH (10:00)
[2019-01-26] MEDS: ENOXAPARIN 30MG/0.3ML SYR SUBCUT SCH (10:53)
[2019-01-26] MEDS: ASPIRIN 81MG EC TABLET PO SCH (10:53)
[2019-01-26] MEDS: QUETIAPINE FUMARATE 25MG TABLET NG SCH ×2 (10:55→21:47)
[2019-01-26] MEDS: FAMOTIDINE 20MG TABLET PO SCH (12:39)
[2019-01-26] MEDS: METRONIDAZOLE 500MG TABLET PO SCH ×2 (12:39→20:15)
[2019-01-26] MEDS ORDERED: FENTANYL CITRATE/PF 500 MCG in SODIUM CHLORIDE 0.9% 40 ML IV PRN (15:15)
[2019-01-26] MEDS: DEXTROSE 50% WATER 50ML SYRINGE IV PRN ×2 (17:25→18:56)
[2019-01-27] VITALS (94 sets, daily range): BP systolic 76–164; BP diastolic 27–85
[2019-01-27] MEDS: IPRATROPIUM/ALBUTEROL 0.5-3(2.5)MG/3ML NEB HHN SCH ×6 (00:03→20:24)
[2019-01-27] MEDS: METRONIDAZOLE 500MG TABLET PO SCH ×3 (04:22→19:45)
[2019-01-27] MEDS: PROPOFOL 10MG/ML 100ML 100 ML IV PRN (04:40)
[2019-01-27] MEDS: SILDENAFIL CITRATE 20MG TABLET PO SCH ×3 (06:04→21:07)
[2019-01-27] MEDS: INSULIN LISPRO 100 UNITS/ML SUBCUT SCH ×4 (06:05→21:08)
[2019-01-27] MEDS: BLOOD SUGAR DIAGNOSTIC STRIP TEST SCH ×4 (06:05→21:08)
[2019-01-27 06:45] LABS: BASOPHILS % 0.5 % (0.0-2.0); HEMATOCRIT. 28.6 % (36.0-48.0); HEMOGLOBIN. 9.6 g/dL (12.0-16.0); LYMPHOCYTES % 9.1 % (20.0-50.0); MEAN CORPUSCULAR HEMOGLOBIN 34.8 pg (28.0-32.0); MEAN CORPUSCULAR VOLUME 103.8 fL (81.0-99.0); MEAN PLATELET VOLUME 7.8 fl (7.4-10.4); MONOCYTES % 7.9 % (2.0-8.0); NEUTROPHILS % 78.5 % (40.0-76.0); PLATELET 187 x1000/uL (130-400); RED BLOOD CELL COUNT 2.76 mill/uL (4.2-5.4); RED CELL DISTRIBUTION WIDTH 18.9 % (11.6-14.6)
[2019-01-27] MEDS: ASPIRIN 81MG EC TABLET PO SCH (10:29)
[2019-01-27] MEDS: METHYLPREDNISOLONE SOD SUCC 40 MG/ML VIAL IV SCH ×2 (10:29→18:11)
[2019-01-27] MEDS: ENOXAPARIN 30MG/0.3ML SYR SUBCUT SCH (10:30)
[2019-01-27] MEDS: MULTIVITAMINS,THER W-MINERALS TABLET PO SCH (10:31)
[2019-01-27] MEDS: QUETIAPINE FUMARATE 25MG TABLET NG SCH ×2 (10:31→21:07)
[2019-01-27 11:57] LABS: BG BASE EXCESS 1.5 mmol/L (-2.0-2.0); BG CARBOXYHEMOGLOBIN 0.3 % (0.5-1.5); BG FRACTION INSPIRED OXYGEN 40; BG HCO3 ACT 26.3 mmol/L (22.0-26.0); BG METHEMOGLOBIN 0.3 % (0.0-1.5); BG OXYHEMOGLOBIN 97.4 % (94.0-97.0); BG PCO2 42.4 mmHg (35.0-45.0); BG PH 7.411 (7.350-7.450); BG PO2 119.4 mmHg (75.0-100.0); BG PRESSURE SUPPORT 8; BG SAMPLE SITE LEFT RADIAL; BG TOTAL HEMOGLOBIN 10.4 g/dL (12.0-18.0); BG VENT MODE VENT - CPAP
[2019-01-27] MEDS: FAMOTIDINE 20MG TABLET PO SCH (13:21)
[2019-01-27] MEDS ORDERED: LIDOCAINE HCL/PF 1% 2ML VIAL ONE (15:57)
[2019-01-27] MEDS: MORPHINE SULFATE 2 MG/ML CPJ (NOT FOR IM USE) IV PRN (19:45)
[2019-01-28] VITALS (9 sets, daily range): BP systolic 119–182; BP diastolic 57–82
[2019-01-28] MEDS: MORPHINE SULFATE 2 MG/ML CPJ (NOT FOR IM USE) IV PRN ×2 (00:57→20:53)
[2019-01-28] MEDS: LORAZEPAM 2MG/ML CPJ IV PRN ×2 (00:58→14:27)
[2019-01-28] MEDS: IPRATROPIUM/ALBUTEROL 0.5-3(2.5)MG/3ML NEB HHN SCH ×6 (01:31→20:12)
[2019-01-28] MEDS: METRONIDAZOLE 500MG TABLET PO SCH ×3 (04:27→20:48)
[2019-01-28] MEDS: DIPHENHYDRAMINE 50MG/ML VIAL IV PRN ×2 (04:30→22:54)
[2019-01-28] MEDS: SILDENAFIL CITRATE 20MG TABLET PO SCH ×3 (05:48→20:54)
[2019-01-28] MEDS: BLOOD SUGAR DIAGNOSTIC STRIP TEST SCH ×4 (07:30→20:53)
[2019-01-28] MEDS: INSULIN LISPRO 100 UNITS/ML SUBCUT SCH ×4 (08:00→20:54)
[2019-01-28] MEDS: LEVOTHYROXINE SODIUM 100MCG TABLET PO SCH (08:41)
[2019-01-28] MEDS: MULTIVITAMINS,THER W-MINERALS TABLET PO SCH (08:41)
[2019-01-28] MEDS: ASPIRIN 81MG EC TABLET PO SCH (08:41)
[2019-01-28] MEDS: METHYLPREDNISOLONE SOD SUCC 40 MG/ML VIAL IV SCH (08:41)
[2019-01-28] MEDS: QUETIAPINE FUMARATE 25MG TABLET NG SCH ×2 (08:41→20:48)
[2019-01-28] MEDS: ENOXAPARIN 30MG/0.3ML SYR SUBCUT SCH (08:42)
[2019-01-28] MEDS: FAMOTIDINE 20MG TABLET PO SCH (12:27)
[2019-01-28 12:59] LABS: BG BASE EXCESS 3.1 mmol/L (-2.0-2.0); BG CARBOXYHEMOGLOBIN 0.5 % (0.5-1.5); BG DEOXYHEMOGLOBIN 7.1 % (0.0-5.0); BG FRACTION INSPIRED OXYGEN 28; BG HCO3 ACT 28.3 mmol/L (22.0-26.0); BG METHEMOGLOBIN 0.3 % (0.0-1.5); BG OXYGEN SATURATION 92.8 % (92.0-98.5); BG OXYHEMOGLOBIN 92.1 % (94.0-97.0); BG PCO2 45.6 mmHg (35.0-45.0); BG PO2 68.9 mmHg (75.0-100.0); BG SAMPLE SITE LEFT RADIAL; BG TOTAL HEMOGLOBIN 10.4 g/dL (12.0-18.0); BG VENT MODE NASAL CANNULA
[2019-01-29] VITALS (9 sets, daily range): BP systolic 100–139; BP diastolic 47–71
[2019-01-29] MEDS: MORPHINE SULFATE 2 MG/ML CPJ (NOT FOR IM USE) IV PRN ×4 (01:08→22:14)
[2019-01-29] MEDS: LORAZEPAM 2MG/ML CPJ IV PRN (01:58)
[2019-01-29] MEDS: IPRATROPIUM/ALBUTEROL 0.5-3(2.5)MG/3ML NEB HHN SCH ×6 (04:15→21:06)
[2019-01-29] MEDS: SILDENAFIL CITRATE 20MG TABLET PO SCH ×3 (05:22→21:36)
[2019-01-29] MEDS: METRONIDAZOLE 500MG TABLET PO SCH ×3 (05:23→21:36)
[2019-01-29 06:45] LABS: BASOPHILS % 0.6 % (0.0-2.0); EOSINOPHILS % 6.8 % (0.0-5.0); HEMATOCRIT. 29.4 % (36.0-48.0); HEMOGLOBIN. 9.4 g/dL (12.0-16.0); LYMPHOCYTES % 12.5 % (20.0-50.0); MEAN CORPUSCULAR HEMOGLOBIN 34.6 pg (28.0-32.0); MEAN CORPUSCULAR VOLUME 108.1 fL (81.0-99.0); MEAN PLATELET VOLUME 7.7 fl (7.4-10.4); MONOCYTES % 8.6 % (2.0-8.0); NEUTROPHILS % 71.5 % (40.0-76.0); PLATELET 219 x1000/uL (130-400); RED BLOOD CELL COUNT 2.72 mill/uL (4.2-5.4); RED CELL DISTRIBUTION WIDTH 19.1 % (11.6-14.6)
[2019-01-29] MEDS: INSULIN LISPRO 100 UNITS/ML SUBCUT SCH ×4 (07:55→21:00)
[2019-01-29] MEDS: BLOOD SUGAR DIAGNOSTIC STRIP TEST SCH ×4 (07:55→22:10)
[2019-01-29] MEDS: LEVOTHYROXINE SODIUM 100MCG TABLET PO SCH (08:12)
[2019-01-29] MEDS: ENOXAPARIN 30MG/0.3ML SYR SUBCUT SCH (08:12)
[2019-01-29] MEDS: MULTIVITAMINS,THER W-MINERALS TABLET PO SCH (08:12)
[2019-01-29] MEDS: METHYLPREDNISOLONE SOD SUCC 40 MG/ML VIAL IV SCH (08:13)
[2019-01-29] MEDS: ASPIRIN 81MG EC TABLET PO SCH (08:13)
[2019-01-29] MEDS: QUETIAPINE FUMARATE 25MG TABLET NG SCH ×2 (08:13→21:36)
[2019-01-29] MEDS: POTASSIUM CHLORIDE 20MEQ TABLET SR PO SCH ×2 (08:16→17:52)
[2019-01-29] MEDS: FAMOTIDINE 20MG TABLET PO SCH (11:40)
[2019-01-30] VITALS (21 sets, daily range): BP systolic 91–181; BP diastolic 44–106
[2019-01-30] MEDS: IPRATROPIUM/ALBUTEROL 0.5-3(2.5)MG/3ML NEB HHN SCH ×5 (00:32→17:02)
[2019-01-30] MEDS: MORPHINE SULFATE 2 MG/ML CPJ (NOT FOR IM USE) IV PRN ×2 (03:32→09:18)
[2019-01-30] MEDS: METRONIDAZOLE 500MG TABLET PO SCH ×2 (05:19→12:36)
[2019-01-30] MEDS: SILDENAFIL CITRATE 20MG TABLET PO SCH ×2 (05:20→14:00)
[2019-01-30] MEDS: BLOOD SUGAR DIAGNOSTIC STRIP TEST SCH ×3 (06:53→18:11)
[2019-01-30] MEDS: INSULIN LISPRO 100 UNITS/ML SUBCUT SCH ×3 (08:00→18:00)
[2019-01-30] MEDS: METHYLPREDNISOLONE SOD SUCC 40 MG/ML VIAL IV SCH (08:35)
[2019-01-30] MEDS: ASPIRIN 81MG EC TABLET PO SCH (08:35)
[2019-01-30] MEDS: LEVOTHYROXINE SODIUM 100MCG TABLET PO SCH (08:35)
[2019-01-30] MEDS: MULTIVITAMINS,THER W-MINERALS TABLET PO SCH (08:35)
[2019-01-30] MEDS: QUETIAPINE FUMARATE 25MG TABLET NG SCH (08:36)
[2019-01-30] MEDS: ENOXAPARIN 30MG/0.3ML SYR SUBCUT SCH (08:37)
[2019-01-30] MEDS: FAMOTIDINE 20MG TABLET PO SCH (12:36)
[2019-01-30] MEDS ORDERED: OXYMETAZOLINE HCL NASAL SPRAY 15ML BOTHNSTRLS SCH (14:30)
[2019-01-30] MEDS ORDERED: FLUTICASONE PROPIONATE 50MCG/SPRAY BOTTLE BOTHNSTRLS SCH (21:00)
[2019-01-31] MEDS ORDERED: PREDNISONE 20MG TABLET PO SCH (09:00)
== END 2019-01-30 20:08 | DRG 291 ==
LOC: ER 17:32 → 6WST 22:25 → EDBEDREQTM 22:29 → EDBEDREQ 22:29 → ENRESERV 22:31 → 5EST 01-21 18:38 → MICUSO 01-22 08:20 → 5EST 01-27 23:29
PROVIDERS: ADMIT Internal Medicine; ATTEND Internal Medicine
PROC: 02HV33Z Insertion of Infusion Device into Superior Vena Cava, Percutaneous Approach (ICD-10-PCS; principal; 2019-01-20)
PROC: B5181ZA Fluoroscopy of Superior Vena Cava using Low Osmolar Contrast, Guidance (ICD-10-PCS; 2019-01-20)
PROC: B548ZZA Ultrasonography of Superior Vena Cava, Guidance (ICD-10-PCS; 2019-01-20)
PROC: 5A09357 Assistance with Respiratory Ventilation, Less than 24 Consecutive Hours, Continuous Positive Airway Pressure (ICD-10-PCS; 2019-01-21)
PROC: 5A1955Z Respiratory Ventilation, Greater than 96 Consecutive Hours (ICD-10-PCS; 2019-01-22)
PROC: 0BH17EZ Insertion of Endotracheal Airway into Trachea, Via Natural or Artificial Opening (ICD-10-PCS; 2019-01-22)
PROC: 5A1D70Z Performance of Urinary Filtration, Intermittent, Less than 6 Hours Per Day (ICD-10-PCS; 2019-01-25)
PROC: 5A1D70Z Performance of Urinary Filtration, Intermittent, Less than 6 Hours Per Day (ICD-10-PCS; 2019-01-26)
DX: I13.2 Hypertensive heart and chronic kidney disease with heart failure and with stage 5 chronic kidney disease, or end stage renal disease (principal); J96.21 Acute and chronic respiratory failure with hypoxia; J18.9 Pneumonia, unspecified organism; I50.31 Acute diastolic (congestive) heart failure; G93.41 Metabolic encephalopathy; N18.6 End stage renal disease; E43 Unspecified severe protein-calorie malnutrition; J96.22 Acute and chronic respiratory failure with hypercapnia; R65.10 Systemic inflammatory response syndrome (SIRS) of non-infectious origin without acute organ dysfunction; N25.81 Secondary hyperparathyroidism of renal origin; B19.10 Unspecified viral hepatitis B without hepatic coma; E87.2 Acidosis; F05 Delirium due to known physiological condition; K11.20 Sialoadenitis, unspecified; E11.22 Type 2 diabetes mellitus with diabetic chronic kidney disease; E86.0 Dehydration; D64.9 Anemia, unspecified; E03.9 Hypothyroidism, unspecified; E11.65 Type 2 diabetes mellitus with hyperglycemia; K64.9 Unspecified hemorrhoids; I27.21 Secondary pulmonary arterial hypertension; F32.9 Major depressive disorder, single episode, unspecified; D63.8 Anemia in other chronic diseases classified elsewhere; D75.89 Other specified diseases of blood and blood-forming organs; E87.6 Hypokalemia; F17.210 Nicotine dependence, cigarettes, uncomplicated; I25.10 Atherosclerotic heart disease of native coronary artery without angina pectoris; I27.29 Other secondary pulmonary hypertension; K11.1 Hypertrophy of salivary gland; M17.12 Unilateral primary osteoarthritis, left knee; R04.0 Epistaxis; K21.0 Gastro-esophageal reflux disease with esophagitis; F10.10 Alcohol abuse, uncomplicated; I25.2 Old myocardial infarction; Z90.81 Acquired absence of spleen; Z82.49 Family history of ischemic heart disease and other diseases of the circulatory system; Z79.899 Other long term (current) drug therapy; Z91.19 Patient's noncompliance with other medical treatment and regimen; Z99.2 Dependence on renal dialysis; Z68.26 Body mass index [BMI] 26.0-26.9, adult; R35.1 Nocturia; T50.905A Adverse effect of unspecified drugs, medicaments and biological substances, initial encounter; Y92.89 Other specified places as the place of occurrence of the external cause
CPT/HCPCS: 31500; 36415; 36573; 36600; 70486; 71045; 73560; 80048; 80061; 80202; 82140; 82375; 82550; 82553; 82805; 82962; 83735; 83880; 84100; 84439; 84443; 84478; 84484; 85027; 87070; 87493; 92610; 93005; 93970; 93971; 94002; 94003; 94640; 94660; 97116; 97162; 97530; 99285; A6261; C1725; C1893; J1200; J1630; J1650; J1815; J2060; J2270; J2405; J2543; J2704; J2920; J3010; J3370; J3490; J7060; J7620

== ENCOUNTER 2019-01-30 20:20 | Inpatient (IN) | payer MEDICARE, MEDICAID ==
[~2019-01-30] VITALS: Ht 175.3 cm; Wt 80.3 kg
[2019-01-30 20:20] VITALS: BP 174/81
[2019-01-30 20:30] VITALS: BP 174/81
[2019-01-30] MEDS ORDERED: DEXTROSE 50% WATER 50ML SYRINGE IV PRN (21:45)
[2019-01-30] MEDS ORDERED: CLONIDINE 0.1MG TABLET PO PRN (21:45)
[2019-01-30] MEDS ORDERED: DOCUSATE SODIUM 100MG CAPSULE PO PRN (22:00)
[2019-01-30] MEDS ORDERED: ONDANSETRON HCL 4MG/2ML INJ IV PRN (22:00)
[2019-01-30] MEDS ORDERED: DIPHENHYDRAMINE 50MG CAPSULE PO PRN (22:00)
[2019-01-30] MEDS ORDERED: MAGNESIUM/ALUMINUM HYDROXIDE/SIMETHICONE 30ML UDC PO PRN (22:00)
[2019-01-30] MEDS ORDERED: NA PHOS,M-B/NA PHOS,DI-BA ENEMA 118ML PR PRN (22:00)
[2019-01-30] MEDS ORDERED: IPRATROPIUM/ALBUTEROL 0.5-3(2.5)MG/3ML NEB HHN PRN (22:00)
[2019-01-30] MEDS: METRONIDAZOLE 500MG TABLET PO SCH (22:50)
[2019-01-30] MEDS: SILDENAFIL CITRATE 20MG TABLET PO SCH (22:51)
[2019-01-30] MEDS: QUETIAPINE FUMARATE 25MG TABLET PO SCH (22:51)
[2019-01-30] MEDS: FLUTICASONE PROPIONATE 50MCG/SPRAY BOTTLE BOTHNSTRLS SCH (22:52)
[2019-01-30] MEDS: OXYMETAZOLINE HCL NASAL SPRAY 15ML BOTHNSTRLS SCH (22:52)
[2019-01-30] MEDS: MORPHINE SULFATE 2 MG/ML CPJ (NOT FOR IM USE) IV PRN (22:54)
[2019-01-30] MEDS: INSULIN LISPRO 100 UNITS/ML SUBCUT SCH (22:59)
[2019-01-30] MEDS: BLOOD SUGAR DIAGNOSTIC STRIP TEST SCH (23:00)
[2019-01-30] MEDS: GUAIFENESIN 200MG/10ML SUGAR FREE UDC PO PRN (23:52)
[2019-01-30 23:55] VITALS: BP 146/75
[2019-01-31] MEDS: IPRATROPIUM/ALBUTEROL 0.5-3(2.5)MG/3ML NEB HHN SCH ×5 (01:15→20:26)
[2019-01-31] MEDS: BLOOD SUGAR DIAGNOSTIC STRIP TEST SCH ×4 (05:40→20:49)
[2019-01-31] MEDS: INSULIN LISPRO 100 UNITS/ML SUBCUT SCH ×4 (05:40→20:49)
[2019-01-31] MEDS: METRONIDAZOLE 500MG TABLET PO SCH ×3 (05:40→21:01)
[2019-01-31] MEDS: SILDENAFIL CITRATE 20MG TABLET PO SCH ×3 (05:40→21:01)
[2019-01-31] MEDS: MORPHINE SULFATE 2 MG/ML CPJ (NOT FOR IM USE) IV PRN ×4 (05:41→21:02)
[2019-01-31] MEDS: LEVOTHYROXINE SODIUM 100MCG TABLET PO SCH (06:37)
[2019-01-31 07:11] LABS: BASOPHILS % 1.2 % (0.0-2.0); EOSINOPHILS % 8.6 % (0.0-5.0); HEMATOCRIT. 24.7 % (36.0-48.0); HEMOGLOBIN. 8.1 g/dL (12.0-16.0); LYMPHOCYTES % 13.9 % (20.0-50.0); MEAN CORPUSCULAR HEMOGLOBIN 34.5 pg (28.0-32.0); MEAN CORPUSCULAR VOLUME 105.1 fL (81.0-99.0); MEAN PLATELET VOLUME 7.4 fl (7.4-10.4); MONOCYTES % 8.1 % (2.0-8.0); NEUTROPHILS % 68.2 % (40.0-76.0); PLATELET 248 x1000/uL (130-400); RED BLOOD CELL COUNT 2.35 mill/uL (4.2-5.4); RED CELL DISTRIBUTION WIDTH 18.6 % (11.6-14.6)
[2019-01-31 08:00] VITALS: BP 113/52
[2019-01-31] MEDS: PREDNISONE 20MG TABLET PO SCH (08:59)
[2019-01-31] MEDS: QUETIAPINE FUMARATE 25MG TABLET PO SCH ×2 (08:59→20:49)
[2019-01-31] MEDS: ENOXAPARIN 30MG/0.3ML SYR SUBCUT SCH ×3 (08:59→11:12)
[2019-01-31] MEDS: MULTIVITAMINS,THER W-MINERALS TABLET PO SCH (08:59)
[2019-01-31] MEDS: ASPIRIN 81MG EC TABLET PO SCH ×3 (08:59→11:12)
[2019-01-31] MEDS: OXYMETAZOLINE HCL NASAL SPRAY 15ML BOTHNSTRLS SCH ×2 (09:00→20:49)
[2019-01-31] MEDS: FLUTICASONE PROPIONATE 50MCG/SPRAY BOTTLE BOTHNSTRLS SCH ×2 (09:00→20:48)
[2019-01-31] MEDS: FAMOTIDINE 20MG TABLET PO SCH (12:42)
[2019-01-31 20:00] VITALS: BP 120/43
[2019-01-31] MEDS: GUAIFENESIN 200MG/10ML SUGAR FREE UDC PO PRN (21:01)
[2019-02-01] MEDS: IPRATROPIUM/ALBUTEROL 0.5-3(2.5)MG/3ML NEB HHN SCH ×6 (00:28→20:18)
[2019-02-01] MEDS: MORPHINE SULFATE 2 MG/ML CPJ (NOT FOR IM USE) IV PRN ×2 (03:47→20:05)
[2019-02-01] MEDS: BLOOD SUGAR DIAGNOSTIC STRIP TEST SCH ×4 (05:38→20:14)
[2019-02-01] MEDS: SILDENAFIL CITRATE 20MG TABLET PO SCH ×3 (05:38→21:37)
[2019-02-01] MEDS: METRONIDAZOLE 500MG TABLET PO SCH ×3 (05:38→21:37)
[2019-02-01] MEDS: INSULIN LISPRO 100 UNITS/ML SUBCUT SCH ×4 (05:39→21:00)
[2019-02-01] MEDS: LEVOTHYROXINE SODIUM 100MCG TABLET PO SCH (06:15)
[2019-02-01 07:57] LABS: BASOPHILS % 0.8 % (0.0-2.0); EOSINOPHILS % 6.9 % (0.0-5.0); HEMATOCRIT. 22.9 % (36.0-48.0); HEMOGLOBIN. 7.8 g/dL (12.0-16.0); LYMPHOCYTES % 16.2 % (20.0-50.0); MEAN CORPUSCULAR HEMOGLOBIN 35.7 pg (28.0-32.0); MEAN CORPUSCULAR VOLUME 104.9 fL (81.0-99.0); MEAN PLATELET VOLUME 7.9 fl (7.4-10.4); MONOCYTES % 9.4 % (2.0-8.0); NEUTROPHILS % 66.7 % (40.0-76.0); PLATELET 262 x1000/uL (130-400); RED BLOOD CELL COUNT 2.19 mill/uL (4.2-5.4); RED CELL DISTRIBUTION WIDTH 18.3 % (11.6-14.6)
[2019-02-01 08:00] VITALS: BP 114/61
[2019-02-01] MEDS: PREDNISONE 20MG TABLET PO SCH (08:41)
[2019-02-01] MEDS: OXYMETAZOLINE HCL NASAL SPRAY 15ML BOTHNSTRLS SCH ×2 (08:41→20:14)
[2019-02-01] MEDS: QUETIAPINE FUMARATE 25MG TABLET PO SCH ×2 (08:41→20:14)
[2019-02-01] MEDS: MULTIVITAMINS,THER W-MINERALS TABLET PO SCH (08:41)
[2019-02-01] MEDS: ENOXAPARIN 30MG/0.3ML SYR SUBCUT SCH (08:42)
[2019-02-01] MEDS: ASPIRIN 81MG EC TABLET PO SCH (08:42)
[2019-02-01] MEDS: FLUTICASONE PROPIONATE 50MCG/SPRAY BOTTLE BOTHNSTRLS SCH ×2 (08:42→20:14)
[2019-02-01] MEDS: GUAIFENESIN 200MG/10ML SUGAR FREE UDC PO PRN ×3 (09:22→21:37)
[2019-02-01] MEDS: FAMOTIDINE 20MG TABLET PO SCH (11:32)
[2019-02-01] MEDS: DIPHENHYDRAMINE 50MG/ML VIAL IV PRN (11:33)
[2019-02-01] MEDS ORDERED: GUAIFENESIN-DM 200MG-20MG/10ML UDC PO PRN (13:00)
[2019-02-01] MEDS ORDERED: LEVOFLOXACIN 250MG PREMIX 50 ML IV SCH (14:00)
[2019-02-01 20:00] VITALS: BP 127/63
[2019-02-02] MEDS: MORPHINE SULFATE 2 MG/ML CPJ (NOT FOR IM USE) IV PRN (04:54)
[2019-02-02] MEDS: LEVOTHYROXINE SODIUM 100MCG TABLET PO SCH (06:03)
[2019-02-02] MEDS: METRONIDAZOLE 500MG TABLET PO SCH ×3 (06:03→22:36)
[2019-02-02] MEDS: SILDENAFIL CITRATE 20MG TABLET PO SCH ×3 (06:03→22:36)
[2019-02-02] MEDS: BLOOD SUGAR DIAGNOSTIC STRIP TEST SCH ×4 (06:03→21:00)
[2019-02-02] MEDS: INSULIN LISPRO 100 UNITS/ML SUBCUT SCH ×4 (06:08→21:00)
[2019-02-02 07:23] LABS: BASOPHILS % 1.7 % (0.0-2.0); EOSINOPHILS % 7.2 % (0.0-5.0); HEMATOCRIT. 22.5 % (36.0-48.0); HEMOGLOBIN. 7.5 g/dL (12.0-16.0); LYMPHOCYTES % 19.1 % (20.0-50.0); MEAN CORPUSCULAR HEMOGLOBIN 34.5 pg (28.0-32.0); MEAN CORPUSCULAR VOLUME 103.9 fL (81.0-99.0); MEAN PLATELET VOLUME 7.7 fl (7.4-10.4); MONOCYTES % 9.1 % (2.0-8.0); NEUTROPHILS % 62.9 % (40.0-76.0); PLATELET 275 x1000/uL (130-400); RED BLOOD CELL COUNT 2.16 mill/uL (4.2-5.4); RED CELL DISTRIBUTION WIDTH 18.4 % (11.6-14.6)
[2019-02-02] MEDS: IPRATROPIUM/ALBUTEROL 0.5-3(2.5)MG/3ML NEB HHN SCH ×5 (07:24→21:25)
[2019-02-02 08:00] VITALS: BP 116/63
[2019-02-02] MEDS: ENOXAPARIN 30MG/0.3ML SYR SUBCUT SCH (09:00)
[2019-02-02] MEDS: ASPIRIN 81MG EC TABLET PO SCH (09:00)
[2019-02-02] MEDS: OXYMETAZOLINE HCL NASAL SPRAY 15ML BOTHNSTRLS SCH ×2 (09:32→22:35)
[2019-02-02] MEDS: FLUTICASONE PROPIONATE 50MCG/SPRAY BOTTLE BOTHNSTRLS SCH ×2 (09:32→22:35)
[2019-02-02] MEDS: MULTIVITAMINS,THER W-MINERALS TABLET PO SCH (09:33)
[2019-02-02] MEDS: QUETIAPINE FUMARATE 25MG TABLET PO SCH ×2 (09:33→22:36)
[2019-02-02] MEDS: PREDNISONE 20MG TABLET PO SCH (09:33)
[2019-02-02] MEDS: METHADONE HCL 5MG TABLET PO PRN ×2 (09:39→20:55)
[2019-02-02] MEDS: LEVOFLOXACIN 250MG TABLET PO SCH (11:08)
[2019-02-02] MEDS: FAMOTIDINE 20MG TABLET PO SCH (11:08)
[2019-02-02] MEDS: ACETAMINOPHEN 325MG TABLET PO PRN ×2 (15:34→23:01)
[2019-02-02 20:00] VITALS: BP 137/72
[2019-02-02] MEDS ORDERED: EPOETIN ALFA 4000UNITS/ML VIAL SUBCUT SCH (21:00)
[2019-02-02] MEDS: EPOETIN ALFA 10000UNITS/ML VIAL SUBCUT SCH (22:37)
[2019-02-03] MEDS: IPRATROPIUM/ALBUTEROL 0.5-3(2.5)MG/3ML NEB HHN SCH ×4 (01:00→20:08)
[2019-02-03] MEDS: LEVOTHYROXINE SODIUM 100MCG TABLET PO SCH (05:53)
[2019-02-03] MEDS: SILDENAFIL CITRATE 20MG TABLET PO SCH ×3 (05:53→22:17)
[2019-02-03] MEDS: BLOOD SUGAR DIAGNOSTIC STRIP TEST SCH ×4 (06:04→21:12)
[2019-02-03] MEDS: INSULIN LISPRO 100 UNITS/ML SUBCUT SCH ×4 (07:01→21:00)
[2019-02-03 08:19] VITALS: BP 113/61
[2019-02-03] MEDS: ASPIRIN 81MG EC TABLET PO SCH (09:31)
[2019-02-03] MEDS: MULTIVITAMINS,THER W-MINERALS TABLET PO SCH (09:31)
[2019-02-03] MEDS: QUETIAPINE FUMARATE 25MG TABLET PO SCH ×2 (09:31→21:43)
[2019-02-03] MEDS: ENOXAPARIN 30MG/0.3ML SYR SUBCUT SCH (09:38)
[2019-02-03] MEDS: METHADONE HCL 5MG TABLET PO PRN ×2 (09:44→21:06)
[2019-02-03] MEDS: FAMOTIDINE 20MG TABLET PO SCH (11:33)
[2019-02-03] MEDS: PREDNISONE 20MG TABLET PO SCH (11:33)
[2019-02-03] MEDS: ACETAMINOPHEN 325MG TABLET PO PRN (15:30)
[2019-02-03 20:00] VITALS: BP 148/69
[2019-02-04] MEDS: IPRATROPIUM/ALBUTEROL 0.5-3(2.5)MG/3ML NEB HHN SCH ×5 (01:14→20:18)
[2019-02-04] MEDS: ACETAMINOPHEN 325MG TABLET PO PRN ×2 (03:09→22:36)
[2019-02-04] MEDS: DIPHENHYDRAMINE 50MG/ML VIAL IV PRN (03:18)
[2019-02-04] MEDS: SILDENAFIL CITRATE 20MG TABLET PO SCH ×3 (06:04→21:06)
[2019-02-04] MEDS: LEVOTHYROXINE SODIUM 100MCG TABLET PO SCH (06:04)
[2019-02-04] MEDS: BLOOD SUGAR DIAGNOSTIC STRIP TEST SCH ×4 (06:18→21:05)
[2019-02-04] MEDS: INSULIN LISPRO 100 UNITS/ML SUBCUT SCH ×4 (06:18→21:00)
[2019-02-04 07:34] LABS: EOSINOPHILS % 4.2 % (0.0-5.0); LYMPHOCYTES % 18.3 % (20.0-50.0); MEAN CORPUSCULAR HEMOGLOBIN 34.7 pg (28.0-32.0); MEAN CORPUSCULAR VOLUME 103.5 fL (81.0-99.0); MEAN PLATELET VOLUME 7.4 fl (7.4-10.4); MONOCYTES % 9.3 % (2.0-8.0); NEUTROPHILS % 67.2 % (40.0-76.0); PLATELET 248 x1000/uL (130-400); RED CELL DISTRIBUTION WIDTH 17.6 % (11.6-14.6)
[2019-02-04 08:00] VITALS: BP 113/59
[2019-02-04] MEDS: ASPIRIN 81MG EC TABLET PO SCH (08:24)
[2019-02-04] MEDS: PREDNISONE 20MG TABLET PO SCH (08:25)
[2019-02-04] MEDS: ENOXAPARIN 30MG/0.3ML SYR SUBCUT SCH (08:25)
[2019-02-04] MEDS: QUETIAPINE FUMARATE 25MG TABLET PO SCH (08:25)
[2019-02-04] MEDS: MULTIVITAMINS,THER W-MINERALS TABLET PO SCH (08:25)
[2019-02-04 08:53] LABS: HEMATOCRIT. 19.7 % (36.0-48.0); HEMOGLOBIN. 6.6 g/dL (12.0-16.0)
[2019-02-04] MEDS: LEVOFLOXACIN 250MG TABLET PO SCH (11:52)
[2019-02-04] MEDS: FAMOTIDINE 20MG TABLET PO SCH (11:52)
[2019-02-04] MEDS: METHADONE HCL 5MG TABLET PO PRN ×2 (11:53→21:21)
[2019-02-04 20:00] VITALS: BP 145/70
[2019-02-04] MEDS ORDERED: EPOETIN ALFA 10000UNITS/ML VIAL SUBCUT SCH (21:00)
[2019-02-04] MEDS ORDERED: FLUTICASONE PROPIONATE 50MCG/SPRAY BOTTLE BOTHNSTRLS SCH (21:00)
[2019-02-04 22:14] VITALS: BP 142/68
[2019-02-04 22:29] VITALS: BP 160/76
[2019-02-04 22:55] VITALS: BP 152/68
[2019-02-05] MEDS: QUETIAPINE FUMARATE 25MG TABLET PO SCH (01:10)
[2019-02-05] MEDS: EPOETIN ALFA 10000UNITS/ML VIAL SUBCUT SCH (01:11)
[2019-02-05] MEDS: IPRATROPIUM/ALBUTEROL 0.5-3(2.5)MG/3ML NEB HHN SCH ×2 (04:00)
[2019-02-05] MEDS: ACETAMINOPHEN 325MG TABLET PO PRN (05:02)
[2019-02-05] MEDS: SILDENAFIL CITRATE 20MG TABLET PO SCH (06:26)
[2019-02-05] MEDS: LEVOTHYROXINE SODIUM 100MCG TABLET PO SCH (06:26)
[2019-02-05] MEDS: INSULIN LISPRO 100 UNITS/ML SUBCUT SCH (06:27)
[2019-02-05] MEDS: BLOOD SUGAR DIAGNOSTIC STRIP TEST SCH (06:27)
[2019-02-05 08:00] VITALS: BP 107/55
[2019-02-05 08:08] LABS: HEMOGLOBIN 5.6 g/dL (12.0-16.0)
[2019-02-05 08:34] VITALS: BP 18/107
[2019-02-05] MEDS ORDERED: NEPVIT MT (12:22)
[2019-02-05] MEDS ORDERED: DIPH25CA83 PO (12:22)
== END 2019-02-05 09:03 | disposition short-term general hospital (02) | DRG 70 ==
PROVIDERS: ADMIT Psychiatry & Neurology Neurology; ATTEND Internal Medicine
PROC: 5A1D70Z Performance of Urinary Filtration, Intermittent, Less than 6 Hours Per Day (ICD-10-PCS; principal; 2019-02-02)
PROC: 5A1D70Z Performance of Urinary Filtration, Intermittent, Less than 6 Hours Per Day (ICD-10-PCS; 2019-02-04)
PROC: 30233N1 Transfusion of Nonautologous Red Blood Cells into Peripheral Vein, Percutaneous Approach (ICD-10-PCS; 2019-02-04)
DX: G93.41 Metabolic encephalopathy (principal); N18.6 End stage renal disease; E43 Unspecified severe protein-calorie malnutrition; J96.02 Acute respiratory failure with hypercapnia; I13.2 Hypertensive heart and chronic kidney disease with heart failure and with stage 5 chronic kidney disease, or end stage renal disease; I50.30 Unspecified diastolic (congestive) heart failure; J84.9 Interstitial pulmonary disease, unspecified; J98.11 Atelectasis; B19.10 Unspecified viral hepatitis B without hepatic coma; D62 Acute posthemorrhagic anemia; I25.2 Old myocardial infarction; J20.9 Acute bronchitis, unspecified; K11.1 Hypertrophy of salivary gland; K11.20 Sialoadenitis, unspecified; F41.9 Anxiety disorder, unspecified; E11.22 Type 2 diabetes mellitus with diabetic chronic kidney disease; E03.9 Hypothyroidism, unspecified; L89.90 Pressure ulcer of unspecified site, unspecified stage; K21.9 Gastro-esophageal reflux disease without esophagitis; I27.29 Other secondary pulmonary hypertension; I25.10 Atherosclerotic heart disease of native coronary artery without angina pectoris; R26.81 Unsteadiness on feet; R62.7 Adult failure to thrive; R04.0 Epistaxis; D64.9 Anemia, unspecified; D63.8 Anemia in other chronic diseases classified elsewhere; F06.31 Mood disorder due to known physiological condition with depressive features; G31.84 Mild cognitive impairment of uncertain or unknown etiology; F32.9 Major depressive disorder, single episode, unspecified; Z82.49 Family history of ischemic heart disease and other diseases of the circulatory system; Z83.3 Family history of diabetes mellitus; Z99.2 Dependence on renal dialysis; Z68.26 Body mass index [BMI] 26.0-26.9, adult
CPT/HCPCS: 36415; 80048; 82270; 82962; 85014; 85018; 86850; 86870; 86900; 86920; 92523; 93971; 94640; 97110; 97116; 97162; 97166; 97530; 97535; A6261; J0885; J1200; J1650; J1956; J2270; J7040; J7512; J7620; P9016

== ENCOUNTER 2019-02-05 09:20 | Inpatient (IN) | payer MEDICARE, MEDICAID ==
[~2019-02-05] VITALS: Ht 170.2 cm; Wt 86.4 kg
[2019-02-05 08:00] VITALS: BP 107/55
[2019-02-05 09:00] VITALS: BP 110/60
[2019-02-05] MEDS ORDERED: NEPVIT MT (12:22)
[2019-02-05] MEDS ORDERED: DIPH25CA83 PO (12:22)
[2019-02-05] MEDS ORDERED: MAGNESIUM/ALUMINUM HYDROXIDE/SIMETHICONE 30ML UDC PO PRN (12:45)
[2019-02-05] MEDS ORDERED: GUAIFENESIN 200MG/10ML SUGAR FREE UDC PO PRN (12:45)
[2019-02-05] MEDS ORDERED: ACETAMINOPHEN 325MG TABLET PO PRN (12:45)
[2019-02-05] MEDS ORDERED: ONDANSETRON HCL 4MG/2ML INJ IV PRN (12:45)
[2019-02-05] MEDS ORDERED: DOCUSATE SODIUM 100MG CAPSULE PO PRN (12:45)
[2019-02-05] MEDS ORDERED: LORAZEPAM 2MG/ML CPJ IV PRN (12:45)
[2019-02-05] MEDS: QUETIAPINE FUMARATE 25MG TABLET PO SCH ×2 (13:00→21:00)
[2019-02-05] MEDS: LEVOTHYROXINE SODIUM 100MCG TABLET PO SCH (14:28)
[2019-02-05] MEDS: OMEPRAZOLE 20MG CAPSULE EXTENDED RELEASE PO SCH ×2 (14:28→21:00)
[2019-02-05] MEDS: MORPHINE SULFATE 2 MG/ML CPJ (NOT FOR IM USE) IV PRN ×2 (14:28→18:24)
[2019-02-05] MEDS: SODIUM CHLORIDE 0.9% INJ 3ML FLUSH IVF SCH ×2 (14:29→21:01)
[2019-02-05 17:15] LABS: INR 1.2; PROTHROMBIN TIME 12.1 sec (9.6-11.0)
[2019-02-05 17:24] LABS: TOTAL IRON BINDING CAPACITY 166 ug/dL (250-450)
[2019-02-05 17:33] LABS: FOLIC ACID (FOLATE) SERUM 8.7 ng/mL (>5.38)
[2019-02-05 20:00] VITALS: BP 132/74
[2019-02-05 20:16] LABS: HEMATOCRIT 16.4 % (36.0-48.0); HEMOGLOBIN 5.4 g/dL (12.0-16.0)
[2019-02-05] MEDS: ACETAMINOPHEN 325MG TABLET PO PRN (21:01)
[2019-02-05] MEDS: DIPHENHYDRAMINE 25MG CAPSULE PO PRN (21:01)
[2019-02-05] MEDS: IPRATROPIUM/ALBUTEROL 0.5-3(2.5)MG/3ML NEB HHN PRN (22:03)
[2019-02-05 22:11] VITALS: BP 133/66
[2019-02-05 22:26] VITALS: BP 132/62
[2019-02-05 23:26] VITALS: BP 138/67
[2019-02-06] VITALS (18 sets, daily range): BP systolic 109–160; BP diastolic 54–78
[2019-02-06 03:16] LABS: INR 1.2; PROTHROMBIN TIME 12.2 sec (9.6-11.0)
[2019-02-06 03:17] LABS: HEMATOCRIT 18.3 % (36.0-48.0); HEMOGLOBIN 5.9 g/dL (12.0-16.0)
[2019-02-06] MEDS: SODIUM CHLORIDE 0.9% INJ 3ML FLUSH IVF SCH ×3 (05:56→21:35)
[2019-02-06 09:43] LABS: BASOPHILS % 1.7 % (0.0-2.0); EOSINOPHILS % 5.5 % (0.0-5.0); LYMPHOCYTES % 10.9 % (20.0-50.0); MEAN CORPUSCULAR HEMOGLOBIN 32.2 pg (28.0-32.0); MEAN CORPUSCULAR VOLUME 97.5 fL (81.0-99.0); MEAN PLATELET VOLUME 7.3 fl (7.4-10.4); MONOCYTES % 6.4 % (2.0-8.0); NEUTROPHILS % 75.5 % (40.0-76.0); PLATELET 144 x1000/uL (130-400); RED BLOOD CELL COUNT 1.82 mill/uL (4.2-5.4); RED CELL DISTRIBUTION WIDTH 20.5 % (11.6-14.6)
[2019-02-06 09:50] LABS: HEMATOCRIT. 17.8 % (36.0-48.0); HEMOGLOBIN. 5.9 g/dL (12.0-16.0)
[2019-02-06] MEDS: IPRATROPIUM/ALBUTEROL 0.5-3(2.5)MG/3ML NEB HHN PRN ×2 (10:07→17:43)
[2019-02-06] MEDS: LEVOTHYROXINE SODIUM 100MCG TABLET PO SCH (10:29)
[2019-02-06] MEDS: QUETIAPINE FUMARATE 25MG TABLET PO SCH ×2 (10:29→21:34)
[2019-02-06] MEDS: OMEPRAZOLE 20MG CAPSULE EXTENDED RELEASE PO SCH ×2 (10:29→21:34)
[2019-02-06] MEDS: MORPHINE SULFATE 2 MG/ML CPJ (NOT FOR IM USE) IV PRN (12:19)
[2019-02-06] MEDS: DIPHENHYDRAMINE 25MG CAPSULE PO PRN ×2 (13:56→21:34)
[2019-02-06 19:46] LABS: HEMOGLOBIN 10.2 g/dL (12.0-16.0)
[2019-02-06 19:51] LABS: INR 1.1; PROTHROMBIN TIME 11.8 sec (9.6-11.0)
[2019-02-06 20:13] LABS: CHLORIDE 107 mEq/L (98-107)
[2019-02-06 20:19] LABS: PHOSPHORUS 3.6 mg/dL (2.5-4.9)
[2019-02-06] MEDS: HYDROCODONE/ACETAMINOPHEN 10/325MG TABLET PO PRN (20:40)
[2019-02-07] VITALS: BP 159/73
[2019-02-07 04:00] VITALS: BP 163/80
[2019-02-07 06:05] LABS: HEMATOCRIT. 27.3 % (36.0-48.0); HEMOGLOBIN. 9.3 g/dL (12.0-16.0); MEAN CORPUSCULAR VOLUME 94.4 fL (81.0-99.0); MEAN PLATELET VOLUME 7.6 fl (7.4-10.4); PLATELET 144 x1000/uL (130-400); RED BLOOD CELL COUNT 2.89 mill/uL (4.2-5.4); RED CELL DISTRIBUTION WIDTH 18.6 % (11.6-14.6)
[2019-02-07] MEDS: SODIUM CHLORIDE 0.9% INJ 3ML FLUSH IVF SCH ×3 (06:30→22:35)
[2019-02-07] MEDS: OMEPRAZOLE 20MG CAPSULE EXTENDED RELEASE PO SCH ×2 (08:06→22:35)
[2019-02-07] MEDS: LEVOTHYROXINE SODIUM 100MCG TABLET PO SCH (08:06)
[2019-02-07 08:15] VITALS: BP 133/79
[2019-02-07] MEDS: QUETIAPINE FUMARATE 25MG TABLET PO SCH ×2 (08:44→22:35)
[2019-02-07] MEDS: HYDROCODONE/ACETAMINOPHEN 10/325MG TABLET PO PRN ×2 (08:44→17:20)
[2019-02-07 11:37] LABS: PLATELET ESTIMATE NORMAL
[2019-02-07 11:45] VITALS: BP 134/72
[2019-02-07 13:32] LABS: HEMOGLOBIN 9.8 g/dL (12.0-16.0)
[2019-02-07 15:42] VITALS: BP 184/83
[2019-02-07 18:41] LABS: HEMATOCRIT 28.6 % (36.0-48.0); HEMOGLOBIN 9.6 g/dL (12.0-16.0)
[2019-02-07 20:00] VITALS: BP 175/78
[2019-02-07] MEDS: MORPHINE SULFATE 2 MG/ML CPJ (NOT FOR IM USE) IV PRN (23:08)
[2019-02-08] VITALS: BP 127/66
[2019-02-08] MEDS: HYDROCODONE/ACETAMINOPHEN 10/325MG TABLET PO PRN ×3 (01:10→19:57)
[2019-02-08] MEDS: IPRATROPIUM/ALBUTEROL 0.5-3(2.5)MG/3ML NEB HHN PRN ×2 (01:21→10:12)
[2019-02-08 04:00] VITALS: BP 149/79
[2019-02-08] MEDS: MORPHINE SULFATE 2 MG/ML CPJ (NOT FOR IM USE) IV PRN ×3 (04:05→16:45)
[2019-02-08] MEDS: SODIUM CHLORIDE 0.9% INJ 3ML FLUSH IVF SCH ×3 (05:21→21:59)
[2019-02-08] MEDS: OMEPRAZOLE 20MG CAPSULE EXTENDED RELEASE PO SCH ×2 (08:14→19:56)
[2019-02-08] MEDS: LEVOTHYROXINE SODIUM 100MCG TABLET PO SCH (08:14)
[2019-02-08 09:27] VITALS: BP 144/78
[2019-02-08] MEDS: QUETIAPINE FUMARATE 25MG TABLET PO SCH ×2 (09:54→19:57)
[2019-02-08 12:00] VITALS: BP 145/65
[2019-02-08 20:00] VITALS: BP 157/77
[2019-02-09] VITALS: BP 135/78
[2019-02-09] MEDS: MORPHINE SULFATE 2 MG/ML CPJ (NOT FOR IM USE) IV PRN ×3 (01:30→15:30)
[2019-02-09 04:00] VITALS: BP 179/84
[2019-02-09] MEDS: SODIUM CHLORIDE 0.9% INJ 3ML FLUSH IVF SCH ×3 (06:42→14:52)
[2019-02-09 08:00] VITALS: BP 141/78
[2019-02-09] MEDS: QUETIAPINE FUMARATE 25MG TABLET PO SCH ×2 (08:58→21:51)
[2019-02-09] MEDS: OMEPRAZOLE 20MG CAPSULE EXTENDED RELEASE PO SCH ×2 (08:58→21:51)
[2019-02-09] MEDS: LEVOTHYROXINE SODIUM 100MCG TABLET PO SCH (08:58)
[2019-02-09 09:11] LABS: BASOPHILS % 1.2 % (0.0-2.0); CHLORIDE 100 mEq/L (98-107); EOSINOPHILS % 6.2 % (0.0-5.0); HEMATOCRIT. 28.2 % (36.0-48.0); HEMOGLOBIN. 9.5 g/dL (12.0-16.0); LYMPHOCYTES % 8.9 % (20.0-50.0); MEAN CORPUSCULAR HEMOGLOBIN 32.2 pg (28.0-32.0); MEAN PLATELET VOLUME 7.5 fl (7.4-10.4); MONOCYTES % 7.3 % (2.0-8.0); NEUTROPHILS % 76.4 % (40.0-76.0); PLATELET 154 x1000/uL (130-400); RED BLOOD CELL COUNT 2.94 mill/uL (4.2-5.4); RED CELL DISTRIBUTION WIDTH 18.7 % (11.6-14.6)
[2019-02-09] MEDS: HYDROCODONE/ACETAMINOPHEN 10/325MG TABLET PO PRN ×2 (09:57→21:58)
[2019-02-09 12:00] VITALS: BP 156/76
[2019-02-09] MEDS ORDERED: DIATR MEGLU/DIATRIZOATE SOLN 30ML PO SCH (13:30)
[2019-02-09 16:00] VITALS: BP 166/91
[2019-02-09] MEDS: CLONIDINE 0.1MG TABLET PO PRN (16:53)
[2019-02-09 20:00] VITALS: BP 168/77
[2019-02-09] MEDS ORDERED: IOHEXOL-300 100 ML BOTTLE ONE (20:29)
[2019-02-10] VITALS (7 sets, daily range): BP systolic 141–181; BP diastolic 68–92
[2019-02-10] MEDS: LEVOTHYROXINE SODIUM 100MCG TABLET PO SCH (08:53)
[2019-02-10] MEDS: QUETIAPINE FUMARATE 25MG TABLET PO SCH ×2 (08:53→20:36)
[2019-02-10] MEDS: OMEPRAZOLE 20MG CAPSULE EXTENDED RELEASE PO SCH ×2 (08:53→20:36)
[2019-02-10] MEDS: SODIUM CHLORIDE 0.9% INJ 3ML FLUSH IVF SCH ×2 (08:54→14:34)
[2019-02-10] MEDS: MORPHINE SULFATE 2 MG/ML CPJ (NOT FOR IM USE) IV PRN (08:54)
[2019-02-10] MEDS: CLONIDINE 0.1MG TABLET PO PRN (16:47)
[2019-02-10] MEDS: ACETAMINOPHEN 325MG TABLET PO PRN ×2 (16:50→22:51)
[2019-02-10] MEDS: HYDRALAZINE 20MG/ML VIAL IV PRN (20:36)
[2019-02-10] MEDS: IPRATROPIUM/ALBUTEROL 0.5-3(2.5)MG/3ML NEB HHN PRN (20:55)
[2019-02-10] MEDS: DIPHENHYDRAMINE 25MG CAPSULE PO PRN (21:44)
[2019-02-11 04:28] VITALS: BP 129/61
[2019-02-11] MEDS: SODIUM CHLORIDE 0.9% INJ 3ML FLUSH IVF SCH ×3 (05:39→21:34)
[2019-02-11 08:00] VITALS: BP 156/68
[2019-02-11] MEDS: LEVOTHYROXINE SODIUM 100MCG TABLET PO SCH (08:03)
[2019-02-11] MEDS: OMEPRAZOLE 20MG CAPSULE EXTENDED RELEASE PO SCH ×2 (08:03→21:34)
[2019-02-11 12:00] VITALS: BP 180/87
[2019-02-11] MEDS ORDERED: SODIUM BICARBONATE 4% (2.4MEQ) 5ML VIAL IV ONE (13:08)
[2019-02-11] MEDS ORDERED: LIDOCAINE HCL 1% 20ML VIAL (Pyxis) INJ ONE (13:08)
[2019-02-11] MEDS: QUETIAPINE FUMARATE 25MG TABLET PO SCH ×2 (13:13→21:34)
[2019-02-11] MEDS ORDERED: IOHEXOL-300 50 ML BOTTLE IV ONE (14:40)
[2019-02-11] MEDS: HYDROCODONE/ACETAMINOPHEN 5/325MG TABLET PO PRN ×2 (16:17→22:48)
[2019-02-11] MEDS: DIPHENHYDRAMINE 25MG CAPSULE PO PRN (16:35)
[2019-02-11 16:42] LABS: BASOPHILS % 1.4 % (0.0-2.0); EOSINOPHILS % 5.5 % (0.0-5.0); HEMATOCRIT. 27.9 % (36.0-48.0); HEMOGLOBIN. 9.3 g/dL (12.0-16.0); LYMPHOCYTES % 10.2 % (20.0-50.0); MEAN CORPUSCULAR HEMOGLOBIN 31.7 pg (28.0-32.0); MEAN CORPUSCULAR VOLUME 95.1 fL (81.0-99.0); MEAN PLATELET VOLUME 7.4 fl (7.4-10.4); MONOCYTES % 5.2 % (2.0-8.0); NEUTROPHILS % 77.7 % (40.0-76.0); PLATELET 146 x1000/uL (130-400); RED BLOOD CELL COUNT 2.94 mill/uL (4.2-5.4)
[2019-02-11 17:47] LABS: HEPATITIS B SURFACE ANTIGEN NEGATIVE
[2019-02-11] MEDS: HYDRALAZINE 20MG/ML VIAL IV PRN (22:48)
[2019-02-11] MEDS: IPRATROPIUM/ALBUTEROL 0.5-3(2.5)MG/3ML NEB HHN PRN (23:43)
[2019-02-12] VITALS (7 sets, daily range): BP systolic 125–163; BP diastolic 73–89
[2019-02-12] MEDS: LEVOTHYROXINE SODIUM 100MCG TABLET PO SCH (06:27)
[2019-02-12] MEDS: SODIUM CHLORIDE 0.9% INJ 3ML FLUSH IVF SCH ×3 (06:27→22:08)
[2019-02-12] MEDS: OMEPRAZOLE 20MG CAPSULE EXTENDED RELEASE PO SCH ×2 (06:29→22:07)
[2019-02-12] MEDS: HYDROCODONE/ACETAMINOPHEN 5/325MG TABLET PO PRN ×2 (07:12→22:26)
[2019-02-12] MEDS: QUETIAPINE FUMARATE 25MG TABLET PO SCH ×2 (09:31→22:07)
[2019-02-12] MEDS: IPRATROPIUM/ALBUTEROL 0.5-3(2.5)MG/3ML NEB HHN PRN ×2 (11:35→22:24)
[2019-02-12] MEDS: ACETAMINOPHEN 325MG TABLET PO PRN (14:25)
[2019-02-12] MEDS: CLONIDINE 0.1MG TABLET PO PRN (18:23)
[2019-02-12] MEDS ORDERED: EPOETIN ALFA 4000UNITS/ML VIAL SUBCUT SCH (21:00)
[2019-02-13] VITALS: BP 161/85
[2019-02-13] MEDS: CLONIDINE 0.1MG TABLET PO PRN ×2 (00:17→22:36)
[2019-02-13 04:00] VITALS: BP 138/66
[2019-02-13] MEDS: SODIUM CHLORIDE 0.9% INJ 3ML FLUSH IVF SCH ×3 (05:02→21:53)
[2019-02-13 07:02] LABS: BASOPHILS % 1.1 % (0.0-2.0); EOSINOPHILS % 9.6 % (0.0-5.0); HEMATOCRIT. 25.6 % (36.0-48.0); HEMOGLOBIN. 8.4 g/dL (12.0-16.0); LYMPHOCYTES % 11.5 % (20.0-50.0); MEAN CORPUSCULAR HEMOGLOBIN 31.3 pg (28.0-32.0); MEAN CORPUSCULAR VOLUME 95.2 fL (81.0-99.0); MEAN PLATELET VOLUME 7.4 fl (7.4-10.4); MONOCYTES % 7.1 % (2.0-8.0); NEUTROPHILS % 70.7 % (40.0-76.0); PLATELET 127 x1000/uL (130-400); RED BLOOD CELL COUNT 2.69 mill/uL (4.2-5.4); RED CELL DISTRIBUTION WIDTH 18.5 % (11.6-14.6)
[2019-02-13] MEDS: LEVOTHYROXINE SODIUM 100MCG TABLET PO SCH (07:08)
[2019-02-13] MEDS: OMEPRAZOLE 20MG CAPSULE EXTENDED RELEASE PO SCH ×2 (07:08→21:52)
[2019-02-13 08:00] VITALS: BP 138/79
[2019-02-13] MEDS: QUETIAPINE FUMARATE 25MG TABLET PO SCH ×2 (10:01→21:52)
[2019-02-13] MEDS: HYDROCODONE/ACETAMINOPHEN 10/325MG TABLET PO PRN ×3 (10:03→22:36)
[2019-02-13 12:00] VITALS: BP 128/74
[2019-02-13 16:00] VITALS: BP 172/85
[2019-02-13 17:11] LABS: ANTI-NUCLEAR ANTIBODIES DIRECT Positive (Negative)
[2019-02-13] MEDS ORDERED: DIPHENHYDRAMINE 50MG/ML VIAL IV PRN (19:00)
[2019-02-13 20:00] VITALS: BP 152/83
[2019-02-13] MEDS ORDERED: EPOETIN ALFA 4000UNITS/ML VIAL SUBCUT SCH ×2 (21:00→22:30)
[2019-02-14] VITALS (7 sets, daily range): BP systolic 114–179; BP diastolic 64–84
[2019-02-14] MEDS: HYDROCODONE/ACETAMINOPHEN 10/325MG TABLET PO PRN ×3 (02:26→14:40)
[2019-02-14] MEDS: SODIUM CHLORIDE 0.9% INJ 3ML FLUSH IVF SCH ×2 (05:42→14:40)
[2019-02-14 06:53] LABS: BASOPHILS % 1.2 % (0.0-2.0); EOSINOPHILS % 10.9 % (0.0-5.0); HEMATOCRIT. 26.8 % (36.0-48.0); LYMPHOCYTES % 11.5 % (20.0-50.0); MEAN CORPUSCULAR HEMOGLOBIN 31.8 pg (28.0-32.0); MEAN CORPUSCULAR VOLUME 95.2 fL (81.0-99.0); MEAN PLATELET VOLUME 7.6 fl (7.4-10.4); MONOCYTES % 8.6 % (2.0-8.0); NEUTROPHILS % 67.8 % (40.0-76.0); PLATELET 128 x1000/uL (130-400); RED BLOOD CELL COUNT 2.82 mill/uL (4.2-5.4); RED CELL DISTRIBUTION WIDTH 18.3 % (11.6-14.6)
[2019-02-14] MEDS: IPRATROPIUM/ALBUTEROL 0.5-3(2.5)MG/3ML NEB HHN PRN (07:47)
[2019-02-14] MEDS: LEVOTHYROXINE SODIUM 100MCG TABLET PO SCH (08:49)
[2019-02-14] MEDS: QUETIAPINE FUMARATE 25MG TABLET PO SCH (08:49)
[2019-02-14] MEDS: OMEPRAZOLE 20MG CAPSULE EXTENDED RELEASE PO SCH (08:49)
[2019-02-14 15:09] LABS: MITOCHONDRIAL M2 AB <20.0 Units (0.0-20.0)
[2019-02-14] MEDS: CLONIDINE 0.1MG TABLET PO PRN (16:34)
== END 2019-02-14 18:05 | disposition home or self-care (01) | DRG 291 ==
LOC: 7WST 09:20
PROVIDERS: ADMIT Internal Medicine; ATTEND Internal Medicine
PROC: 30233N1 Transfusion of Nonautologous Red Blood Cells into Peripheral Vein, Percutaneous Approach (ICD-10-PCS; 2019-02-05)
PROC: 5A1D70Z Performance of Urinary Filtration, Intermittent, Less than 6 Hours Per Day (ICD-10-PCS; 2019-02-06)
PROC: 5A1D70Z Performance of Urinary Filtration, Intermittent, Less than 6 Hours Per Day (ICD-10-PCS; 2019-02-08)
PROC: 02HV33Z Insertion of Infusion Device into Superior Vena Cava, Percutaneous Approach (ICD-10-PCS; principal; 2019-02-11)
PROC: B5181ZA Fluoroscopy of Superior Vena Cava using Low Osmolar Contrast, Guidance (ICD-10-PCS; 2019-02-11)
PROC: B548ZZA Ultrasonography of Superior Vena Cava, Guidance (ICD-10-PCS; 2019-02-11)
PROC: 5A1D70Z Performance of Urinary Filtration, Intermittent, Less than 6 Hours Per Day (ICD-10-PCS; 2019-02-11)
PROC: 5A1D70Z Performance of Urinary Filtration, Intermittent, Less than 6 Hours Per Day (ICD-10-PCS; 2019-02-12)
DX: I13.2 Hypertensive heart and chronic kidney disease with heart failure and with stage 5 chronic kidney disease, or end stage renal disease (principal); N18.6 End stage renal disease; D62 Acute posthemorrhagic anemia; B19.10 Unspecified viral hepatitis B without hepatic coma; I50.32 Chronic diastolic (congestive) heart failure; D63.1 Anemia in chronic kidney disease; E11.22 Type 2 diabetes mellitus with diabetic chronic kidney disease; Z99.2 Dependence on renal dialysis; E03.9 Hypothyroidism, unspecified; E78.5 Hyperlipidemia, unspecified; I25.2 Old myocardial infarction; I27.20 Pulmonary hypertension, unspecified; R04.0 Epistaxis; Z95.1 Presence of aortocoronary bypass graft; E66.9 Obesity, unspecified; I25.10 Atherosclerotic heart disease of native coronary artery without angina pectoris; I70.0 Atherosclerosis of aorta; Z68.28 Body mass index [BMI] 28.0-28.9, adult; Z91.15 Patient's noncompliance with renal dialysis; K20.9 Esophagitis, unspecified; G89.29 Other chronic pain; M54.9 Dorsalgia, unspecified
CPT/HCPCS: 36415; 36573; 71045; 74177; 75820; 76937; 80048; 80061; 82105; 82270; 82390; 82607; 82668; 82728; 82746; 82977; 83516; 83540; 83550; 83735; 84100; 85014; 85018; 85049; 85384; 86038; 86705; 86850; 86870; 86900; 86920; 87015; 87045; 87340; 87427; 87449; 87493; 93970; 94640; 97161; 97164; C1725; C1769; J0360; J0885; J1200; J2270; J3490; J7040; J7620; P9016; Q0163; Q9963; Q9967

== ENCOUNTER 2019-02-15 11:03 | Inpatient (IN) | payer MEDICARE, MEDICAID ==
[~2019-02-15] VITALS: Ht 170.2 cm; Wt 81.8 kg
[~2019-02-15 11:03] MED LIST changes: +DIPH25CA83 PO; +NEPVIT MT
[2019-02-15] MEDS ORDERED: ALBUTEROL (0.083%) 2.5MG/3ML NEB HHN STA (14:32)
[2019-02-15 14:57] LABS: BASOPHILS % 1.6 % (0.0-2.0); EOSINOPHILS % 5.7 % (0.0-5.0); HEMATOCRIT. 25.7 % (36.0-48.0); HEMOGLOBIN. 8.8 g/dL (12.0-16.0); LYMPHOCYTES % 10.5 % (20.0-50.0); MEAN CORPUSCULAR HEMOGLOBIN 32.6 pg (28.0-32.0); MEAN CORPUSCULAR VOLUME 95.2 fL (81.0-99.0); MEAN PLATELET VOLUME 9.1 fl (7.4-10.4); NEUTROPHILS % 76.2 % (40.0-76.0); PLATELET 181 x1000/uL (130-400); RED CELL DISTRIBUTION WIDTH 18.6 % (11.6-14.6)
[2019-02-15] MEDS ORDERED: MORPHINE SULFATE 4 MG/ML CPJ (NOT FOR IM USE) IV ONE (15:00)
[2019-02-15 15:05] LABS: CHLORIDE 100 mEq/L (98-107)
[2019-02-15] MEDS ORDERED: GUAIFENESIN 200MG/10ML SUGAR FREE UDC PO PRN (17:15)
[2019-02-15] MEDS ORDERED: NA PHOS,M-B/NA PHOS,DI-BA ENEMA 118ML PR PRN (17:15)
[2019-02-15] MEDS ORDERED: ONDANSETRON HCL 4MG/2ML INJ IV PRN (17:15)
[2019-02-15] MEDS ORDERED: DOCUSATE SODIUM 100MG CAPSULE PO PRN (17:15)
[2019-02-15] MEDS ORDERED: LORAZEPAM 2MG/ML CPJ IV PRN (17:15)
[2019-02-15] MEDS ORDERED: MAGNESIUM/ALUMINUM HYDROXIDE/SIMETHICONE 30ML UDC PO PRN (17:15)
[2019-02-15] MEDS: CLONIDINE 0.1MG TABLET PO PRN (20:42)
[2019-02-15] MEDS: MORPHINE SULFATE 2 MG/ML CPJ (NOT FOR IM USE) IV PRN (20:45)
[2019-02-15 21:00] VITALS: BP 177/97
[2019-02-15] MEDS: ACETAMINOPHEN 325MG TABLET PO PRN (21:36)
[2019-02-15] MEDS: ENOXAPARIN 30MG/0.3ML SYR SUBCUT SCH (23:17)
[2019-02-16] VITALS (7 sets, daily range): BP systolic 124–184; BP diastolic 57–81
[2019-02-16 00:24] LABS: CHLORIDE 104 mEq/L (98-107)
[2019-02-16] MEDS: MORPHINE SULFATE 2 MG/ML CPJ (NOT FOR IM USE) IV PRN ×2 (01:12→16:02)
[2019-02-16] MEDS: HYDROCODONE/ACETAMINOPHEN 10/325MG TABLET PO PRN ×4 (04:46→20:46)
[2019-02-16] MEDS ORDERED: SODIUM POLYSTYRENE SULFONATE 15 G/60 ML BOT PO SCH (09:00)
[2019-02-16] MEDS: LEVOTHYROXINE SODIUM 100MCG TABLET PO SCH (09:00)
[2019-02-16] MEDS: ASPIRIN 81MG EC TABLET PO SCH (09:38)
[2019-02-16] MEDS: DIPHENHYDRAMINE 50MG/ML VIAL IV PRN ×2 (12:13→20:44)
[2019-02-16 12:53] LABS: BASOPHILS % 1.7 % (0.0-2.0); EOSINOPHILS % 13.3 % (0.0-5.0); HEMATOCRIT. 24.1 % (36.0-48.0); MEAN CORPUSCULAR HEMOGLOBIN 31.5 pg (28.0-32.0); MEAN CORPUSCULAR VOLUME 94.4 fL (81.0-99.0); MEAN PLATELET VOLUME 7.4 fl (7.4-10.4); MONOCYTES % 7.3 % (2.0-8.0); NEUTROPHILS % 65.7 % (40.0-76.0); PLATELET 159 x1000/uL (130-400); RED BLOOD CELL COUNT 2.55 mill/uL (4.2-5.4)
[2019-02-16 13:02] LABS: LDL CHOLESTEROL 120 mg/dL (5-100)
[2019-02-16 13:04] LABS: HDL CHOLESTEROL 58 mg/dL (40-59); T4 FREE 0.77 ng/dL (0.76-1.46)
[2019-02-16 13:28] LABS: CHLORIDE 104 mEq/L (98-107)
[2019-02-16] MEDS: SILDENAFIL CITRATE 20MG TABLET PO SCH ×2 (13:55→21:12)
[2019-02-16] MEDS: IPRATROPIUM/ALBUTEROL 0.5-3(2.5)MG/3ML NEB NEB PRN ×2 (17:19→21:30)
[2019-02-16] MEDS: ENOXAPARIN 30MG/0.3ML SYR SUBCUT SCH (20:44)
[2019-02-17] VITALS: BP 172/74
[2019-02-17] MEDS: HYDROCODONE/ACETAMINOPHEN 10/325MG TABLET PO PRN ×4 (04:06→20:59)
[2019-02-17] MEDS: SILDENAFIL CITRATE 20MG TABLET PO SCH ×3 (05:42→20:59)
[2019-02-17 08:00] VITALS: BP 151/77
[2019-02-17] MEDS: ASPIRIN 81MG EC TABLET PO SCH (08:53)
[2019-02-17] MEDS: LEVOTHYROXINE SODIUM 100MCG TABLET PO SCH (08:53)
[2019-02-17 12:00] VITALS: BP 169/77
[2019-02-17] MEDS: ACETAMINOPHEN 325MG TABLET PO PRN ×3 (12:32→23:57)
[2019-02-17 13:14] LABS: BASOPHILS % 0.9 % (0.0-2.0); EOSINOPHILS % 11.1 % (0.0-5.0); HEMATOCRIT. 24.5 % (36.0-48.0); HEMOGLOBIN. 8.2 g/dL (12.0-16.0); LYMPHOCYTES % 10.8 % (20.0-50.0); MEAN CORPUSCULAR HEMOGLOBIN 31.8 pg (28.0-32.0); MEAN CORPUSCULAR VOLUME 95.2 fL (81.0-99.0); MEAN PLATELET VOLUME 7.4 fl (7.4-10.4); MONOCYTES % 9.7 % (2.0-8.0); NEUTROPHILS % 67.5 % (40.0-76.0); PLATELET 167 x1000/uL (130-400); RED BLOOD CELL COUNT 2.57 mill/uL (4.2-5.4); RED CELL DISTRIBUTION WIDTH 17.9 % (11.6-14.6)
[2019-02-17 16:00] VITALS: BP 150/78
[2019-02-17] MEDS: IPRATROPIUM/ALBUTEROL 0.5-3(2.5)MG/3ML NEB NEB PRN (17:21)
[2019-02-17 20:00] VITALS: BP 171/82
[2019-02-17] MEDS: ENOXAPARIN 30MG/0.3ML SYR SUBCUT SCH (21:00)
[2019-02-17] MEDS: DIPHENHYDRAMINE 25MG CAPSULE PO PRN (21:06)
[2019-02-17 23:51] VITALS: BP 159/73
[2019-02-18] VITALS (9 sets, daily range): BP systolic 116–169; BP diastolic 57–85
[2019-02-18] MEDS: HYDROCODONE/ACETAMINOPHEN 10/325MG TABLET PO PRN ×5 (01:38→21:08)
[2019-02-18] MEDS: SILDENAFIL CITRATE 20MG TABLET PO SCH ×3 (06:05→21:07)
[2019-02-18] MEDS: ASPIRIN 81MG EC TABLET PO SCH (08:45)
[2019-02-18] MEDS: LEVOTHYROXINE SODIUM 100MCG TABLET PO SCH (08:45)
[2019-02-18] MEDS: CLONIDINE 0.1MG TABLET PO PRN (15:04)
[2019-02-18] MEDS: IPRATROPIUM/ALBUTEROL 0.5-3(2.5)MG/3ML NEB NEB PRN ×2 (16:38→20:38)
[2019-02-18] MEDS: AMLODIPINE 10MG TABLET PO SCH (16:52)
[2019-02-18] MEDS: HYDRALAZINE HCL 50MG TABLET PO SCH ×2 (18:05→23:16)
[2019-02-18] MEDS: AMIODARONE HCL 200 MG TABLET PO SCH (18:05)
[2019-02-18] MEDS: LOSARTAN POTASSIUM 50 MG TABLET PO SCH (21:07)
[2019-02-18] MEDS: ENOXAPARIN 30MG/0.3ML SYR SUBCUT SCH (21:09)
[2019-02-18] MEDS: DIPHENHYDRAMINE 25MG CAPSULE PO PRN (21:15)
[2019-02-18] MEDS: ACETAMINOPHEN 325MG TABLET PO PRN (23:16)
[2019-02-19] MEDS: IPRATROPIUM/ALBUTEROL 0.5-3(2.5)MG/3ML NEB NEB PRN (00:42)
[2019-02-19] MEDS: HYDROCODONE/ACETAMINOPHEN 10/325MG TABLET PO PRN ×2 (01:48→05:19)
[2019-02-19] MEDS: DIPHENHYDRAMINE 25MG CAPSULE PO PRN (03:21)
[2019-02-19 04:00] VITALS: BP 110/71
[2019-02-19] MEDS: SILDENAFIL CITRATE 20MG TABLET PO SCH (05:17)
[2019-02-19] MEDS: HYDRALAZINE HCL 50MG TABLET PO SCH (05:18)
[2019-02-19] MEDS: AMIODARONE HCL 200 MG TABLET PO SCH (06:00)
[2019-02-19] MEDS ORDERED: TRAZODONE HCL 50MG TABLET PO SCH (07:55)
[2019-02-19 08:00] VITALS: BP 116/57
[2019-02-19] MEDS: ASPIRIN 81MG EC TABLET PO SCH (08:27)
[2019-02-19] MEDS: LEVOTHYROXINE SODIUM 100MCG TABLET PO SCH (08:27)
[2019-02-19] MEDS: LOSARTAN POTASSIUM 50 MG TABLET PO SCH (08:27)
[2019-02-19] MEDS: AMLODIPINE 10MG TABLET PO SCH (08:27)
[2019-02-19] MEDS ORDERED: AMLODIPINE 5MG TABLET PO SCH (09:00)
[2019-02-19] MEDS ORDERED: CLONIDINE 0.3MG TABLET PO SCH (09:00)
== END 2019-02-19 11:44 | DRG 189 ==
LOC: ER 11:03 → 7WST 16:44 → EDBEDREQ 16:48 → ENRESERV 18:54
PROVIDERS: ADMIT Internal Medicine; ATTEND Internal Medicine
PROC: 5A1D70Z Performance of Urinary Filtration, Intermittent, Less than 6 Hours Per Day (ICD-10-PCS; principal; 2019-02-16)
DX: J96.00 Acute respiratory failure, unspecified whether with hypoxia or hypercapnia (principal); N18.6 End stage renal disease; E46 Unspecified protein-calorie malnutrition; I13.2 Hypertensive heart and chronic kidney disease with heart failure and with stage 5 chronic kidney disease, or end stage renal disease; D64.9 Anemia, unspecified; I25.10 Atherosclerotic heart disease of native coronary artery without angina pectoris; I50.9 Heart failure, unspecified; I27.21 Secondary pulmonary arterial hypertension; E78.5 Hyperlipidemia, unspecified; J44.9 Chronic obstructive pulmonary disease, unspecified; Z99.2 Dependence on renal dialysis; Z90.81 Acquired absence of spleen; Z79.899 Other long term (current) drug therapy; I25.2 Old myocardial infarction
CPT/HCPCS: 36415; 71045; 80048; 80061; 83880; 84439; 84443; 84484; 93005; 94640; 96374; 97116; 97162; 97530; 99285; C1893; J1200; J1650; J2270; J7611; J7620; Q0163